=== PATIENT | male | born 1950 | race Caucasian/White ===

== ENCOUNTER → 2017-09-09 08:19 | Outpatient (CLI) | payer MEDICARE, SELFPAY ==
[2017-09-09 09:39] LABS: Alanine Aminotransferase 33 U/L (12-78); Albumin Level 3.5 gm/dL (3.4-5.0); Albumin/Globulin Ratio 0.9 (1.1-1.8); Alkaline Phosphatase 62 U/L (46-116); Anion Gap 11.8 mEq/L (5-15); Bilirubin,Total 0.6 mg/dL (0.2-1.0); Blood Urea Nitrogen 9 mg/dL (7-18); Carbon Dioxide 29 mmol/L (21.0-32.0); Chloride 107 mmol/L (98-107); Cholesterol 101 mg/dL (140-200); Creatinine,Serum 1.03 mg/dL (0.70-1.30); Estimated Glomerular Filt Rate 72 ml/min (>60); GFR (African American) 87 ML/MIN (>60); Glucose 147 mg/dL (74-106); HDL Cholesterol 34 mg/dL (27-67); LDL Cholesterol 50 mg/dL (0-130); Sodium 143 mmol/L (136-145); Total Protein,Serum 7.5 gm/dL (6.4-8.2); Triglycerides 86 mg/dL (30-200); VLDL Cholesterol 17 mg/dL (0-40)
[2017-09-09 09:41] LABS: Aspartate Amino Transferase 31 U/L (15-37); Potassium 4.8 mmoL/L (3.5-5.1)
== END ==
PROVIDERS: Visit Provider Physician Assistant
DX: E78.5 Hyperlipidemia, unspecified (principal); I25.10 Atherosclerotic heart disease of native coronary artery without angina pectoris
CPT/HCPCS: 36415; 80053; 80061

== ENCOUNTER → 2018-11-17 14:59 | Outpatient (CLI) | payer MEDICARE, SELFPAY ==
--- NOTE | 2018-11-17 15:04 | MR_ITS ---
PROCEDURE: MR CERVICAL SPINE WO CON CLINICAL INDICATION: CERVICAL RADICULOPATHY Cervical radiculopathy, right-sided neck and arm pain with headache and tingling in fingers in the right hand COMPARISON: No exams were available for comparison TECHNIQUE: Standard multiplanar multiecho sequences are performed without contrast. 3-D MIP and myelographic images are also rendered and reviewed FINDINGS: There is normal alignment. The cranial cervical junction has an unremarkable appearance. C2-C3: Unremarkable. C3-C4: There is fusion of the C3 and C4 vertebral body. C4-C5: Degenerate disc disease with mild concentric bulging disc with mild uncovertebral hypertrophy and mild bilateral lateral recess and foraminal narrowing. There is borderline narrowing of the canal. C5-C6: Degenerate disc disease with bulging disc and a small broad-based left paracentral disc osteophyte complex with left lateral recess and foraminal narrowing with canal stenosis at 10 mm there is very minimal contour deformity of the anterior aspect of the cord. C6-C7: Degenerate disc disease with bulging disc with canal stenosis at 10 mm. Minimal contour deformity of the anterior aspect of the cord C7-T1: Unremarkable IMPRESSION: 1. C4-C5: Degenerate disc disease with mild concentric bulging disc with mild uncovertebral hypertrophy and mild bilateral lateral recess and foraminal narrowing. There is borderline narrowing of the canal. 2. C5-C6: Degenerate disc disease with bulging disc and a small broad-based left paracentral disc osteophyte complex with left lateral recess and foraminal narrowing with canal stenosis at 10 mm there is very minimal contour deformity of the anterior aspect of the cord. 3. C6-C7: Degenerate disc disease with bulging disc with canal stenosis at 10 mm. Minimal contour deformity of the anterior aspect of the cord 4. No extruded herniated disc. There is fusion of the C3-C4 vertebral body. Dictated by: Mo Rossi MD 11/18/2018 06:24 Electronically signed by Mo Rossi MD in [place] 11/18/2018 06:24
== END ==
PROVIDERS: PCP Family Medicine; Referring Provider Family Medicine; Visit Provider Family Medicine
DX: M54.12 Radiculopathy, cervical region (principal)
CPT/HCPCS: 72141; 76376

== ENCOUNTER → 2019-05-02 14:52 | Outpatient (CLI) | payer MEDICARE, SELFPAY ==
--- NOTE | 2019-05-02 14:58 | XR_ITS ---
PROCEDURE: XR FOOT WT BEARING RT 3V CLINICAL INDICATION: bunions Pain COMPARISON: No exams were available for comparison FINDINGS: No fracture or dislocation. No lytic or blastic change. There is normal mineralization. Postsurgical changes with a bone plate along the mid and distal aspect of the 2nd metatarsal. Good alignment of the 1st MTP joint with hypertrophic changes. Suspect prior bunionectomy. There has been prior fusion of the 1st metatarsal tarsal joint with 2 crossing screws. Mild degenerative changes of the tarsal bones. Prominent enthesophyte at the Achilles insertion. Other findings:None. IMPRESSION: Postsurgical changes, no acute finding Dictated by: Mo Rossi MD 05/02/2019 17:30 Electronically signed by Mo Rossi MD in [place] 05/02/2019 17:30
--- NOTE | 2019-05-02 14:58 | XR_ITS ---
PROCEDURE: XR FOOT WT BEARING LT 3V CLINICAL INDICATION: bunion COMPARISON: No exams were available for comparison FINDINGS: No fracture or dislocation. No lytic or blastic change. There is normal mineralization. Mild to moderate hallux valgus with osteoarthritic change of the 1st MTP joint with bunion formation and vascular calcification. There is some calcification along the plantar surface of the foot fdc between the base of the 5th metatarsal in the small calcaneal spur which may be due to chronic plantar fasciitis. Well-circumscribed and these a fight is present at the Achilles insertion. Other findings:None. IMPRESSION: Onion hallux valgus with bunion formation with osteoarthritis and possible chronic plantar fasciitis Dictated by: Mo Rossi MD 05/02/2019 17:28 Electronically signed by Mo Rossi MD in [place] 05/02/2019 17:28
== END ==
PROVIDERS: PCP Family Medicine; Visit Provider Podiatrist
DX: M21.612 Bunion of left foot (principal)
CPT/HCPCS: 73630

== ENCOUNTER → 2019-05-11 12:26 | Outpatient (CLI) | payer MEDICARE, SELFPAY ==
--- NOTE | 2019-05-11 12:27 | US_ITS ---
APPROVED REPORT Exam Type: Lower Extremity Segmental Pressures Intravenous Therapy Nurse: Isadora Rice RVT Indications History of Smoking SKIN COLOR CHANGES ANTIONE, COLD FEET ANTIONE Risk Factors Hypertension CAD Hyperlipidemia Diabetes History of Smoking Pressures/Indices Right Indices Left Indices Brachial 146.00 mmHg Brachial 142.00 mmHg Low Thigh 144.00 mmHg 0.99 Low Thigh 255.00 mmHg 0.00 Calf 255.00 mmHg 0.00 Calf 255.00 mmHg 0.00 Ankle(PT) 172.00 mmHg 1.18 Ankle(PT) 255.00 mmHg 0.00 Ankle(DP) 137.00 mmHg 0.94 Ankle(DP) 255.00 mmHg 0.00 Digit 112.00 mmHg 0.77 Digit 109.00 mmHg 0.75 Findings RT SUKHJINDER:1.18 LT SUKHJINDER:NC RT TBI:0.77 LT TBI:0.75 NORMAL PULSES BILATERAL. NORMAL WAVEFORMS BILATERAL. Conclusion Medial calcinosis (rigid vessels) is suggested due to noncompressible thigh and calf vessels on the left Right side is normal. Electronically signed by : Mo Rossi MD 05/11/2019 16:51:05
== END ==
PROVIDERS: PCP Family Medicine; Visit Provider Nurse Practitioner
DX: I99.8 Other disorder of circulatory system (principal); R09.89 Other specified symptoms and signs involving the circulatory and respiratory systems; R68.89 Other general symptoms and signs
CPT/HCPCS: 93923

== ENCOUNTER 2019-08-01 08:22 | Day surgery (SDC) | payer MEDICARE, SELFPAY ==
[2019-08-01] VITALS (10 sets, daily range): BP systolic 114–171; BP diastolic 59–119; PULSE 52–62; RESP 16–18; TEMP 36.8; O2SAT 92–97; BMI 40.3
--- NOTE | 2019-08-01 | IR_ITS ---
APPROVED REPORT Patient Location: Outpatient Veneer Taper: TEE Ron RT (R) PROCEDURES Catheter placement in the right common iliac artery Right common iliac artery antegrade angiogram with unilateral runoff to the right foot Catheter placement in the left common iliac artery Left common iliac artery antegrade angiogram with unilateral runoff to the left foot Catheter placement to the distal abdominal aorta Distal abdominal aortography INDICATION Abnormal SUKHJINDER, Preoperative evaluation for lower extremity surgery Informed consent was obtained prior to the procedure. COMPLICATIONS None Estimated Blood Loss: Less than 10 ml TECHNIQUE 1% lidocaine used to anesthetize the right anterior aspect of the right wrist. The right radial artery was accessed via the central technique and an arterial cocktail using 5000U heparin, 2.5 mg verapamil, 1mg lidocaine and 800mcg nitroglycerin into the right radial sheath intra-arterially. A PV multi curve catheter was then placed into the left common iliac artery via the right radial sheath and iliofemoral angiography was performed with unilateral runoff to the foot. Excellent angiographic results were obtained. At the end of the procedure the apparatus was removed the sheath was removed good hemostasis was achieved using TR banding patient was transferred to the postop holding area in stable condition. ANGIOGRAPHIC RESULTS The distal abdominal aorta is normal with normal bilateral common iliac arteries normal internal and external iliac arteries. The bilateral common femoral arteries are normal The bilateral profunda femoris arteries are normal The right superficial femoral artery has proximal calcified stenoses followed by a mid vessel focal greater than 90% stenosis with normal flow distal to the vessel. The right popliteal artery is mildly calcified. Distally the anterior tibialis artery and posterior tibialis artery are patent however the posterior tibialis artery has diffuse proximal 80% stenoses while the anterior tibialis artery has mild disease. The peroneal artery is also patent but does not completely supply the right foot The left superficial femoral artery has mild proximal and mid vessel atheromatous plaque nothing greater than 30%. The left popliteal artery has diffuse 30% stenoses. The left anterior tibialis artery has proximal and mid vessel 90% stenoses and is then occluded throughout most of its mid segment and then reconstitutes as it approaches the foot via collaterals from the patent peroneal artery. The left posterior tibialis artery has an ostial 50% stenosis mid vessel 90% stenoses and distal 90% stenoses as the artery enters the foot IMPRESSION Peripheral artery disease as described above with most of the disease confined to the infrageniculate level although the right superficial femoral artery does have a focal stenosis PLAN 1. At this point I recommend medical management. No percutaneous or surgical intervention will improve patient's risk factors for complications for the pending bunion surgery. 2. Risk factor modification with an LDL less than 55 3. Physical therapy 4. Avoidance of tobacco products 5. Should patient develop recalcitrant claudication the right superficial femoral artery has a focal stenosis which is easily amenable to intervention. Electronically signed by : Pablo Gutierrez, 08/01/2019 12:49:07
[2019-08-01 09:11] LABS: Basophils # 0.1 K/mm3 (0-0.2); Basophils % 1.2 % (0.1-2.0); Eosinophils # 0.1 K/mm3 (0.0-0.4); Hematocrit 48.5 % (42.0-52.0); Hemoglobin 16.1 g/dL (14.1-18.0); Lymphocytes # 2.2 K/mm3 (0.7-4.5); Lymphocytes % 34.1 % (10-50); Mean Corpuscular HGB Conc 33.2 g/dL (31.8-35.4); Mean Corpuscular Hemoglobin 29.9 pg (27.0-31.2); Mean Corpuscular Volume 90.1 fl (80-94); Mean Platelet Volume 8.2 fl (7.4-10.4); Monocytes # 0.4 K/mm3 (0.1-1.0); Monocytes % 6.7 % (1.7-9.3); Neutrophils # 3.5 K/mm3 (1.8-7.8); Neutrophils % 55.9 % (37.0-80.0); Platelet Count 258 K/mm3 (142-424); Red Blood Count 5.39 M/mm3 (4.60-6.20); Red Cell Distribution Width 14.1 % (11.5-17.5); White Blood Count 6.3 K/mm3 (4.8-10.8)
[2019-08-01 09:13] LABS: Chloride 101 mmol/L (98-107); Potassium 4.1 mmoL/L (3.5-5.1); Sodium 135 mmol/L (136-145)
[2019-08-01 09:16] LABS: Anion Gap 7.1 mEq/L (5-15); Blood Urea Nitrogen 12 mg/dl (9-20); Carbon Dioxide 31 mmol/L (22.0-30.0); Creatinine Clearance Estimated 117 mL/min (50-200); Estimated Glomerular Filt Rate 74 ml/min (>60); GFR (African American) 89 ML/MIN (>60)
[2019-08-01 09:17] LABS: Calcium 8.9 mg/dl (8.4-10.2); Glucose 149 mg/dl (74-100)
== END 2019-08-01 14:59 | disposition home or self-care (01) ==
LOC: CATHLAB 08:25
PROVIDERS: PCP Family Medicine; Visit Provider Internal Medicine
DX: I70.293 Other atherosclerosis of native arteries of extremities, bilateral legs (principal); I25.10 Atherosclerotic heart disease of native coronary artery without angina pectoris; I77.1 Stricture of artery; Z87.891 Personal history of nicotine dependence; I10 Essential (primary) hypertension; E78.5 Hyperlipidemia, unspecified; Z79.899 Other long term (current) drug therapy; E11.51 Type 2 diabetes mellitus with diabetic peripheral angiopathy without gangrene
CPT/HCPCS: 36247; 75716; 80048; 85025; 99152; 99153; C1725; C1769; J1644; Q9966

== ENCOUNTER 2020-01-28 10:55 | Emergency (ER) | payer MEDICARE, SELFPAY ==
[2020-01-28 11:36] VITALS: BP 122/71; PULSE 64; RESP 20; TEMP 36.6; O2SAT 98; BMI 41.5
--- NOTE | 2020-01-28 11:37 | HMH.EDUTC ---
[facility] Disposition Clinical Impression: Exposure to COVID-19 virus Disposition: Home, Self-Care Condition on Discharge: Good Instructions: Preventing the Spread of Coronavirus Discharge Instructions Additional Instructions: You have been tested for COVID19. Those test results should be available in 24-48 hours. Please isolate yourself as if you are positive until test results received. If you are positive, you must isolate for 10 days and until you are symptom free. Due to exposure, you must quarantine for 14 days from the last day that you had contact with your son. Referrals: Macario Bell MD [Primary Care Provider] - Time of Disposition: 11:42 Medical Decision Making - Buck Inquiry Pt receiving controlled substance: No Orders (Tests/Meds): ORDERS Category Date Time Status Covid-19 Nasal PCR Sendout [facility] 01/28/20 11:30 Received [facility] HPI - General Stated complaint: Covid exposure Time Seen by Provider: 01/28/20 11:37 - History of Present Illness Provider Complaint: Son tested positive for COVID19 2 days ago. Denies symptoms at this time. Relieving factors: none Exacerbating factors: none Associated symptoms: denies other symptoms Treatments prior to arrival: none - Related Data Home Medications Medication Instructions Recorded Confirmed aspirin 81 mg tablet,delayed 81 mg PO DAILY 05/18/19 05/18/19 release carvedilol 12.5 mg tablet 12.5 mg PO BID tab 05/18/19 05/18/19 glipizide 5 mg tablet, extended 5 mg PO DAILY tab 05/18/19 05/18/19 release 24 hr isosorbide mononitrate 30 mg 30 mg PO DAILY tab 05/18/19 05/18/19 tablet,extended release 24 hr lisinopril 40 mg tablet 40 mg PO DAILY tab 05/18/19 05/18/19 omeprazole 20 mg capsule,delayed 20 mg PO DAILY cap 05/18/19 05/18/19 release Previous Rx's Medication Instructions Recorded atorvastatin 40 mg tablet 40 mg PO DAILY #90 tab 05/18/19 Allergies Allergy/AdvReac Type Severity Reaction Status Date / Time No Known Allergies Allergy Verified 05/18/19 09:59 [facility] History - Hepatitis A Screen Attestation statement:: This patient has been screened for Hepatitis A risk factors. I have reviewed the patient's past medical history: Yes Medical History: Reports:: Coronary Artery Disease, Diabetes Mellitus Type 2, Gastroesophageal Reflux Disease(GERD), Hypertension, Pulmonary Embolism Other Surgeries: Yes: Cardiac Catheterization, Coronary Stent, Other Amputation: No Fractures: No - Social History Smoking Status: Former smoker Alcohol Intake: never Alcohol Intake Frequency:: holidays/special occasions only Substance Use Type: denies use Occupational Status: retired Housing: house Household Members: spouse Family Hx:: Coronary Artery Disease, Cancer ROS Obtained: Yes All systems reviewed & no additional complaints Physical Exam - General General appearance: alert, in no apparent distress - Head Head exam: normocephalic - Eye Eye exam: Present: PERRL - ENT ENT exam: Present: normal oropharynx - Chest Chest inspection: Present: normal inspection, symmetric chest wall rise - Respiratory Respiratory exam: Present: normal lung sounds bilaterally - Cardiovascular Cardiovascular exam: Present: regular rate, normal rhythm - Extremities Exam Extremities exam: Present: normal inspection, full ROM - Neurological Exam Neurological exam: Present: alert, oriented X3 - Psychiatric Psychiatric exam: Present: normal affect, normal mood - Skin Skin exam: Present: warm, dry, intact
[2020-01-28 12:08] VITALS: BP 122/71; PULSE 64; RESP 20; TEMP 36.6; O2SAT 98
[2020-01-29 10:13] LABS: Covid-19 Nasal PCR Sendout UK NOT DETECTED
== END 2020-01-28 12:09 | disposition home or self-care (01) ==
PROVIDERS: Emergency Provider Physician Assistant; PCP Family Medicine
DX: Z20.828 Contact with and (suspected) exposure to other viral communicable diseases (principal); I10 Essential (primary) hypertension; I25.10 Atherosclerotic heart disease of native coronary artery without angina pectoris; E11.9 Type 2 diabetes mellitus without complications; K21.9 Gastro-esophageal reflux disease without esophagitis; Z87.891 Personal history of nicotine dependence
CPT/HCPCS: G0463; 99201; U0003

== ENCOUNTER → 2020-10-16 13:07 | Outpatient (CLI) | payer MEDICARE, SELFPAY ==
--- NOTE | 2020-10-16 13:11 | CA_ITS ---
APPROVED REPORT EXAM: Comprehensive 2D, Doppler, and color-flow Echocardiogram Mobile Solutions Architect: JANIS Enrique, RVS Ht: 5 ft 8 in Wt: 265lbs BSA: 2.30 BP: 145/73 mmHg Indications: Cad Hx- coronary stent, HTN, HLD, Obesity, DM Echo Enhancing Agent Comments: Technically difficult due to large body habitus and lung impedence. 2D Dimensions IVSd 1.50 cm LVEF (Visual) 64.00 % PWd 1.34 cm LA Volume 59.30 mL LVDd 4.23 cm LA Volume Index 25.80 mL/m2 (M/F) 16-34 LVDs 2.77 cm Left Atrium 3.52 cm LVOT 2.00 cm (M/F) 1.5-2.5 M-Mode Dimensions RVDd 3.62 cm (0.9-2.6) LA Diam 4.12 cm (1.9-4.0) LVDd 4.75 cm (3.5-5.7) Ao Diam 3.37 cm (2.0-3.7) LVDs 2.66 cm (3.5-5.7) IVSd 1.57 cm (0.6-1.1) PWd 1.29 cm (0.6-1.1) EF (Teich) 75.20% EPSs 0.52 cm FS 44.00% EDV (Teich) 104.90 mL TAPSE 1.94 (<1.7) ESV (Teich) 26.00 mL LV Diastology E Decel Time 333.00 (160-240 msec) E/A Ratio 0.89 MED E' 5.40 (< 7 cm/sec) MED A' 8.60 cm/s E'/MED E' Ratio 20.85 (>14) LAT E' 5.20 (<10 cm/sec) LAT A' 9.70 cm/s E/LAT E' Ratio 21.65 (>14) Aortic Valve LVOT Max 135.00 (70-110 cm/s) LVOT VTI 26.85 cm AoV Peak Gerald. 169.00 (50-130 cm/s) AO Peak GR. 11.40 mmHg AO Mean GR. 5.60 (<5 mmHg) AO VTI 30.22 (18-25 cm) ROLO (VTI) 2.79 (2.5-4.5 cm2) Mitral Valve MV A Velocity 126.00 (40-130 cm/s) E/A Ratio 0.89 MV Decel. Time 333.00 (160-240 ms) MV PHT 110.00 ms Left Ventricle Left atrium is mildly enlarged, left ventricle is normal size, mild concentric left ventricular hypertrophy, visually estimated ejection fraction 55% with no regional wall motion abnormality, grade 1 diastolic dysfunction seen with tissue Doppler evidence of raise left atrial pressure. Right Ventricle Right atrium and right ventricle mildly enlarged with normal contractility. Aortic Valve Aortic valve is minimally thickened and calcified, there is no aortic stenosis or aortic insufficiency. Mitral Valve Mitral valve has mitral calcification, leaflets are minimally thickened, there is no mitral stenosis, there is mild mitral regurgitation. Tricuspid Valve Tricuspid grossly normal, there is mild tricuspid regurgitation, tricuspid regurgitation jet velocity is inadequate for calculation of the right ventricular systolic pressure. Pulmonic Valve Pulmonic valve is poorly visualized. Great Vessels Aortic root is normal size. Inferior vena cava is not well visualized. Pericardium No significant pericardial effusion noted. Conclusion 1. Mild biatrial enlargement, normal left ventricular size, mild concentric left ventricular hypertrophy, visually estimated ejection fraction 55% with no regional wall motion abnormality, grade 1 diastolic dysfunction seen with tissue Doppler evidence of raise left atrial pressure. 2. Mildly enlarged right ventricle with normal contractility. 3. Mild mitral and tricuspid regurgitation. 4. No significant pericardial effusion noted. Electronically signed by : Bennie Gonsalves MD 10/17/2020 14:39:49
== END ==
PROVIDERS: PCP Family Medicine; Visit Provider Nurse Practitioner Acute Care
DX: I25.10 Atherosclerotic heart disease of native coronary artery without angina pectoris (principal); I10 Essential (primary) hypertension
CPT/HCPCS: 93306

== ENCOUNTER → 2021-01-29 07:38 | Outpatient (CLI) | payer MEDICARE, SELFPAY ==
--- NOTE | 2021-01-29 07:51 | MR_ITS ---
PROCEDURE: MR HEAD/BRAIN WO CON CLINICAL INDICATION: encephalopathy, memory loss COMPARISON: No exams were available for comparison TECHNIQUE: Routine multiplanar multi echo sequences are performed without gadolinium enhancement. FINDINGS: No midline shift, mass effect, intracranial hemorrhage, or hydrocephalus is evident. No evidence of restricted diffusion/acute infarction. Moderate degree periventricular and subcortical T2 white matter hyperintensities noted. These do not demonstrate restricted diffusion. The cerebellopontine angles, cerebellum, and brainstem have an unremarkable appearance. The pituitary, optic chiasm, corpus callosum, and craniocervical junction are unremarkable. There does appear to be fusion of C3-C4 vertebral body. Small amount fluid signal noted in the left mastoid sinus. No paranasal sinus air-fluid level. Small areas of increased T2 signal noted within the parotid region on both sides suggesting small nodes measuring up to 1.6 x 1 cm on the left and 1.3 x 0.7 cm on the right. There is decreased T1 and increased T2 signal within the globus pallidus on both sides with slight increase in FLAIR signal suggesting old small lacunar infarctions with cystic encephalomalacia. IMPRESSION: 1. No acute intracranial findings. 2. Atrophy with moderate T2 white matter hyperintensity consistent with ischemic gliotic changes from microvascular disease. 3. 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 Differential diagnosis for bilateral basal ganglia infarcts include carbon monoxide poisoning, methylmalonic acidemia, disulfiram toxicity, recently reported Covid19 hypoxemia, and cocaine use disorder. 4. Small amount fluid signal in the left mastoid sinus. Dictated by: Mo Rossi MD 01/30/2021 07:35 Mo Rossi MD in [place] 01/30/2021 07:35
[2021-01-29 08:05] LABS: Basophils # 0.1 K/mm3 (0-0.2); Basophils % 1.3 % (0.1-2.0); Eosinophils # 0.3 K/mm3 (0.0-0.4); Eosinophils % 3.6 % (0.1-12.0); Hematocrit 40.4 % (42.0-52.0); Hemoglobin 13.2 g/dL (14.1-18.0); Lymphocytes # 2.4 K/mm3 (0.7-4.5); Lymphocytes % 31.9 % (10-50); Mean Corpuscular HGB Conc 32.7 g/dL (31.8-35.4); Mean Corpuscular Hemoglobin 28.9 pg (27.0-31.2); Mean Corpuscular Volume 88.5 fl (80-94); Mean Platelet Volume 8.3 fl (7.4-10.4); Monocytes # 0.4 K/mm3 (0.1-1.0); Monocytes % 5.8 % (1.7-9.3); Neutrophils # 4.3 K/mm3 (1.8-7.8); Neutrophils % 57.5 % (37.0-80.0); Platelet Count 344 K/mm3 (142-424); Red Blood Count 4.57 M/mm3 (4.60-6.20); Red Cell Distribution Width 14.1 % (11.5-17.5); White Blood Count 7.4 K/mm3 (4.8-10.8)
[2021-01-29 08:13] LABS: Chloride 104 mmol/L (98-107); Potassium 3.9 mmoL/L (3.5-5.1); Sodium 141 mmol/L (136-145)
[2021-01-29 08:15] LABS: Alanine Aminotransferase 14 U/L (12-78); Aspartate Amino Transferase 24 U/L (17-59); Blood Urea Nitrogen 7 mg/dl (9-20); Estimated Glomerular Filt Rate 83 ml/min (>60); GFR (African American) 100 ML/MIN (>60)
[2021-01-29 08:16] LABS: Albumin/Globulin Ratio 1.3 (1.1-1.8); Alkaline Phosphatase 93 U/L (38-126); Anion Gap 12.9 mEq/L (5-15); Bilirubin,Total 0.3 mg/dl (0.2-1.3); Calcium 8.9 mg/dl (8.4-10.2); Carbon Dioxide 28 mmol/L (22.0-30.0); Chol/HDL Ratio 4.2 (1-3.5); Cholesterol 130 mg/dl (140-200); Globulin 3.1 g/dL (1.3-3.2); Glucose 128 mg/dl (74-100); HDL Cholesterol 31 mg/dl (40-60); Total Protein,Serum 7.1 g/dl (6.3-8.2); Triglycerides 102 mg/dl (30-150); VLDL Cholesterol 20 mg/dL (0-40)
[2021-01-29 08:27] LABS: Direct LDL Cholesterol 75.42 mg/dL (100-129)
[2021-01-29 10:34] LABS: Vitamin B12 444 pg/mL (239-931)
[2021-01-29 11:33] LABS: Folate 6.09 ng/mL
[2021-01-29 11:45] LABS: Thyroid Stimulating Hormone 1.64 uIU/mL (0.465-4.68)
== END ==
PROVIDERS: PCP Family Medicine; Visit Provider Nurse Practitioner Family
DX: G93.40 Encephalopathy, unspecified (principal); R41.3 Other amnesia; E66.9 Obesity, unspecified; Z68.38 Body mass index [BMI] 38.0-38.9, adult
CPT/HCPCS: 36415; 70551; 80053; 80061; 82607; 82746; 84443; 85025

== ENCOUNTER → 2021-02-05 12:26 | Outpatient (CLI) | payer MEDICARE, SELFPAY ==
[2021-02-05 14:32] LABS: Ferritin 27.5 ng/ml (17.9-464)
[2021-02-05 23:18] LABS: Iron 46 ug/dL (49-181)
[2021-02-05 23:27] LABS: Total Iron Binding Capacity 327 ug/dL (261-462)
== END ==
PROVIDERS: Visit Provider Nurse Practitioner Family
DX: D64.9 Anemia, unspecified (principal)
CPT/HCPCS: 36415; 82728; 83540; 83550

== ENCOUNTER → 2021-02-05 21:07 | Outpatient (CLI) | payer MEDICARE, SELFPAY | PROVIDERS: PCP Family Medicine; Visit Provider Nurse Practitioner Family | DX: G47.30 Sleep apnea, unspecified (principal); D50.9 Iron deficiency anemia, unspecified | CPT/HCPCS: 36415; 82728; 83540; 83550; 95810 ==

== ENCOUNTER → 2021-03-12 09:15 | Outpatient (CLI) | payer MEDICARE, SELFPAY | PROVIDERS: PCP Family Medicine; Visit Provider Surgery | DX: Z01.812 Encounter for preprocedural laboratory examination (principal); Z11.52 Encounter for screening for COVID-19; Z12.11 Encounter for screening for malignant neoplasm of colon | CPT/HCPCS: C9803; U0003; U0005 ==

== ENCOUNTER 2021-03-14 08:11 | Day surgery (SDC) | payer MEDICARE, SELFPAY ==
[2021-03-10 14:05] VITALS: BMI 37.5
[2021-03-14] VITALS (7 sets, daily range): BP systolic 131–167; BP diastolic 70–96; PULSE 59–70; RESP 16–18; TEMP 36.6–36.7; O2SAT 91–98
--- NOTE | 2021-03-14 08:56 | HMH.ANESCL ---
[facility] Anesthesia Checklist - Structural Data Admitted From: Home Planned Operative Procedure/s: colonoscopy Consent for Planned Operative Procedure(s) Verified: Yes - Airway Assessment C-Spine Mobility Assessed: Yes TMJ Mobility Assessed: Yes Dentition: Poor Dentition - Neurological Assessment Level of Consciousness: Awake, Alert, Appropriate - Anesthesia Plan Anesthesia Risk discussed: Yes Anesthesia Plan: Verified ASA Class: III Anesthesia Type: MAC [facility] History I have reviewed the patient's past medical history: Yes Medical History: Reports:: Coronary Artery Disease, Diabetes Mellitus Type 2, Gastroesophageal Reflux Disease(GERD), Hyperlipidemia, Hypertension, Pulmonary Embolism Denies:: Cancer, Diabetes Mellitus Type 1, Internal Pacemaker, MRSA, Seizures *Have you ever received a pneumonia vaccine?: Yes *Have you received a flu vaccine this season?: Yes Other Medical History: Reports: Arthritis, Cataracts Anesthesia experience/problems:: none Laterality Cases: Right: Other, Bilateral: Cataract Other Surgeries: Yes: Cardiac Catheterization, Coronary Stent, Other. No: Pacemaker Amputation: No Fractures: Yes (right foot) - *Social History Last grade of school completed: 11th or 12th Smoking Status: Former smoker Alcohol Intake: never Alcohol Intake Frequency:: holidays/special occasions only Substance Use Type: denies use *Occupational Status:: retired Housing: house Household Members: spouse *Travel in the last 8 weeks: None Family Hx:: No significant family history
--- NOTE | 2021-03-14 09:23 | HMH.SCOPE ---
- Procedure: Date: 03/14/21 Patient Date of :: 1950 Procedure Performed:: Total colonoscopy with polypectomy by snare Indications:: Patient is a 71-year-old male who presents for colonoscopy due to history of polyps. He had initial screening colonoscopy on 11/30/[address] Guadalupe and had 7 polyps removed. There was noted to be an ascending colon lipoma. It was recommended he undergo follow-up colonoscopy in 2 or 3 years. Performing Provider:: Robson Meadows MD Referring Provider:: Macario Bell MD Sedation:: MAC sedation Procedure:: Patient was taken to endoscopy procedure room. He was positioned in lateral decubitus position. Adequate intravenous sedation was achieved with anesthesia titration of propofol. Variable stiffness Olympus colonoscope was inserted via the anus. It was advanced to the cecum. He had somewhat of a high riding cecum. Ileocecal valve and appendiceal orifice were clearly identified. Colonoscope was slowly withdrawn to the colon with careful surveillance. Irrigation and suctioning was performed as needed. There was a small to moderate submucosal lipoma in the ascending colon. In the distal transverse colon there was a small adenomatous appearing polyp measuring about 4 mm removed with cold cutting snare. In the descending colon there were a couple of small polyps about 3 mm removed with cold snare. The rectosigmoid region there is a tiny diminutive polyp about 2 or 3 mm removed with cold snare. He did have significant left-sided diverticulosis. Retroflexion within the rectum revealed no evidence of any pathologic internal hemorrhoids. Colonoscope was withdrawn. Findings:: Ascending colon submucosal lipoma Some degree of pandiverticulosis with significant left colon diverticulosis Small 2 to 4 mm polyps x4 Recommendations:: Likely repeat colonoscopy 3 years Complications:: None immediate Estimated blood obtained (mL): 2
[2021-11-27 10:56] LABS: POC Glucose,Bedside 99 (70-110)
== END 2021-03-14 10:00 | disposition home or self-care (01) ==
LOC: OUTP 08:12
PROVIDERS: PCP Family Medicine; Visit Provider Surgery
PROC: 0DJD8ZZ Inspection of Lower Intestinal Tract, Via Natural or Artificial Opening Endoscopic (ICD-10-PCS; principal; 2021-03-14 09:30)
DX: Z12.11 Encounter for screening for malignant neoplasm of colon (principal); D12.5 Benign neoplasm of sigmoid colon; K57.32 Diverticulitis of large intestine without perforation or abscess without bleeding; D12.4 Benign neoplasm of descending colon; D12.3 Benign neoplasm of transverse colon; Z86.010 Personal history of colon polyps; I25.10 Atherosclerotic heart disease of native coronary artery without angina pectoris; K21.9 Gastro-esophageal reflux disease without esophagitis; E78.5 Hyperlipidemia, unspecified; I10 Essential (primary) hypertension; Z86.711 Personal history of pulmonary embolism; Z79.899 Other long term (current) drug therapy; Z79.82 Long term (current) use of aspirin
CPT/HCPCS: 45385; 82962; 88305

== ENCOUNTER → 2021-04-22 21:20 | Outpatient (CLI) | payer MEDICARE, SELFPAY | PROVIDERS: PCP Family Medicine; Visit Provider Nurse Practitioner Family | DX: G47.33 Obstructive sleep apnea (adult) (pediatric) (principal) | CPT/HCPCS: 95811 ==

== ENCOUNTER 2023-11-16 06:46 | Outpatient (CLI) | payer MEDICARE, SELFPAY ==
--- NOTE | 2023-11-16 | CA_ITS ---
APPROVED REPORT Exam: Pharmacologic Technologist: Ila Lopez, Ht: 5 ft 8 in Wt: 234 lbs BSA: 2.18 m2 HR: 53 bpm BP: 110/55 mmHg Rhythm: Sinus bradycardia Medical History Medications: Amlodipine,,,,, Lisinopril,,,,, Aspirin,,,,, Atorvastatin,,,,, Carvedilol,,,,, TAMSULOSIN,,,,, CHlorthalidone,,,,, DONEPEZIL,,,,, Baclofen,,,,, MeMANTINE,,,,, Glipizide er,,,,, Escitalopram Oxolate,,,,, Stress Test Details Test: LEXISCAN Reason for pharmacologic stress test: physical limitation. HR Resting HR: 52 bpm Max Heart Rate (APMHR): 146 bpm Max HR Achieved: 68 bpm Target HR (85% APMHR): 124 bpm % of APMHR: 47 Recovery HR: 64 bpm BP Resting BP: 110.0/55.0 mmHg Max BP: 110.0/55.0 mmHg Recovery BP: 90.0/64.0 mmHg ECG Resting ECG: Sinus bradycardia Stress ECG: No significant ST changes Arrhythmia: PACs, PVCs Clinical Exercise duration: 04:01 min Highest Stage Achieved: Stress ECG Conclusion Symptoms: Nausea. Arrhythmias/Ectopy: PVC, PAC. ST-T Changes: No significant ST changes Conclusion: EKG unremarkable due to Lexiscan infusion. Myoview images reported separately. Test Summary REST . . . . . . . Sitting REST 06:19 . . 52 . 110/ 55 . . Stage 1 . . . . . . . Myoview Injected Stage 1 01:00 . . 56 . . . . Stage 2 01:00 . . 68 . 98/ 45 . . Stage 3 01:00 . . 60 . 103/ 43 . . Stage 4 01:00 . . 59 . 110/ 43 . . Stage 4 01:01 . . 59 . 110/ 43 . Stop exercise at 04:01 RECOVERY 01:00 . . 61 . 88/ 38 . . RECOVERY 02:00 . . 60 . 88/ 38 . . RECOVERY 02:22 . . 65 . 90/ 46 . . Electronically signed by : Meredith Brothers MD 11/17/2023 00:28:03
--- NOTE | 2023-11-16 06:47 | NM_ITS ---
APPROVED REPORT Exam: Nuclear Stress Test Indication: SOB, CAD, HTN, DM, High cholesterol, Family history Patient Location: Outpatient Stress Tech: Ila HAMILTON Tech:Mary Carmen Trammell, ARRT, RT (R)(N) Ht: 5 ft 6 in Wt: 233 lbs HR: 52 bpm BP: 110/55 mmHg BSA: 2.13 m2 TID: 1.23 BMI: 37.6 History: SOB, CAD, HTN, DM, High cholesterol, Family history Procedure: Patient received 0.4 mg of intravenous Lexiscan, resting heart rate 52 bpm, resting blood pressure 110/55 mmHg, with Lexiscan maximum heart rate achieved was 68 bpm which is % of the maximum predicted heart rate and blood pressure was 110/55 mmHg. With Lexiscan, patient denied any complaint of chest pain. Cardiac Stress and Resting SPECT Images: Cardiac Stress and Resting SPECT images were obtained using technetium 99m Myoview 32.1 mCi stress and 10.25 mCi at rest. Resting and stress imaging in supine positions demonstrate a small sized, moderate, fixed perfusion defect in the basal inferior LV wall. This is no longer visualized with prone stress imaging. Findings are suggestive of diaphragmatic attenuation. There is increase in transit ischemic dilatation ratio (TID 1.23), suggestive of possible multivessel disease or balanced ischemia. Gated imaging demonstrates normal global and regional LV systolic function. LVEF is calculated at 61%. Conclusion: Diaphragmatic attenuation is present. No evidence of focal fixed or reversible perfusion defects. There is increase in transit ischemic dilatation ratio (TID 1.23), suggestive of possible multivessel disease or balanced ischemia. Gated imaging demonstrates normal global and regional LV systolic function. LVEF is calculated at 61%. Electronically signed by : Meredith Brothers MD 11/17/2023 00:29:46
[2023-11-16] MEDS: ISOTOPE MYOVIEW (PER STUDY) 1 DOSE IV (08:45)
[2023-11-16] MEDS: SODIUM CHLORIDE 0.9% 10ML SYR (RAD ONLY) 10 ML IV ×2 (08:45)
[2023-11-16] MEDS: REGADENOSON 0.4MG/5ML SYRINGE 0.4 MG IV (08:45)
== END 2023-11-16 23:59 | disposition home or self-care (01) ==
LOC: RAD 06:47
PROVIDERS: PCP Family Medicine; Visit Provider Nurse Practitioner
DX: I25.10 Atherosclerotic heart disease of native coronary artery without angina pectoris (principal); I51.89 Other ill-defined heart diseases; R06.00 Dyspnea, unspecified
CPT/HCPCS: 78452; 93017; 93018; A9502; J2785

== ENCOUNTER 2023-11-18 08:48 | Outpatient (CLI) | payer MEDICARE, SELFPAY ==
--- NOTE | 2023-11-18 08:55 | CA_ITS ---
APPROVED REPORT EXAM: Comprehensive 2D, Doppler, and color-flow Echocardiogram Crane Manager: Ara Lynn CRT Ht: 5 ft 8 in Wt: 234lbs BSA: 2.18 BP: 101/45 mmHg Indications: Shortness of Breath, Diabetes, CAD, Hyperlipidemia, Hypertension/HDD, stent, dementia 2D Dimensions LA Volume 47.50 mL LA Volume Index 21.20 mL/m2 (M/F) 16-34 M-Mode Dimensions RVDd 2.92 cm (0.9-2.6) LA Diam 3.85 cm (1.9-4.0) LVDd 4.63 cm (3.5-5.7) LVDs 2.39 cm (3.5-5.7) IVSd 2.05 cm (0.6-1.1) PWd 1.06 cm (0.6-1.1) EF (Teich) 79.80% FS 48.40% EDV (Teich) 98.80 mL TAPSE 2.24 (<1.7) ESV (Teich) 20.00 mL LV Diastology E Decel Time 273 (160-240 msec) E/A Ratio 0.62 MED A' 10.90 cm/s LAT A' 12.60 cm/s Aortic Valve AO Peak GR. 8.90 mmHg Mitral Valve MV A Velocity 109.0 (40-130 cm/s) E/A Ratio 0.62 Pulmonary Valve PV Peak Velocity 105.0 (50-150 cm/s) Tricuspid Valve TR P. Velocity 289.00 cm/s RAP Estimate 10.00 mmHg RVSP 43.30 mmHg Left Ventricle The left ventricle is normal size. The left ventricular systolic function is normal. The left ventricular ejection fraction is within the normal range. There is increased LV wall thickness. There is normal LV segmental wall motion. Transmitral Doppler flow pattern suggests impaired LV relaxation. LVEF is 55%. Right Ventricle Right ventricle is mildly dilated. The right ventricular systolic function is normal. Atria Left atrium is mildly dilated. Right atrium is mildly dilated. There is no Doppler evidence of interatrial shunt. The aortic valve is mildly thickened. Aortic Valve There is no aortic valvular stenosis. No aortic regurgitation is present. Mitral Valve The mitral valve is mildly thickened. No evidence of mitral valve stenosis. Trace mitral regurgitation. Tricuspid Valve The tricuspid valve leaflets are thin and pliable. Trace tricuspid regurgitation. There is insufficient TR jet to estimate RVSP. Pulmonic Valve The pulmonary valve is grossly normal in structure. Trace pulmonic regurgitation. Great Vessels The aortic root is normal in size. The ascending aorta is normal in size. IVC is normal in size and collapses >50% with inspiration. Pericardium There is no pericardial effusion. Other Information Study Quality: Fair Conclusion Normal biventricular systolic function. Mild RV dilation. Mild biatrial dilation. No significant valvular stenosis or regurgitation. Electronically signed by : Meredith Brothers MD 11/21/2023 01:20:04
== END 2023-11-18 23:59 | disposition home or self-care (01) ==
LOC: RT 08:51
PROVIDERS: PCP Family Medicine; Visit Provider Nurse Practitioner
DX: I51.89 Other ill-defined heart diseases (principal); R06.00 Dyspnea, unspecified
CPT/HCPCS: 93306

== ENCOUNTER 2023-12-16 10:17 | Day surgery (SDC) | payer MEDICARE, SELFPAY ==
[2023-12-16] VITALS (9 sets, daily range): BP systolic 96–139; BP diastolic 30–64; PULSE 50–63; RESP 16–18; O2SAT 93–95; BMI 36.1
--- NOTE | 2023-12-16 07:06 | IR_ITS ---
APPROVED REPORT Patient Location: Outpatient PROCEDURES Left heart catheterization Left ventriculogram Selective coronary angiogram Drug-eluting stent deployment to the proximal mid dominant right coronary Drug-eluting stent deployment to the proximal LAD INDICATION High risk abnormal Myoview, Coronary artery disease Informed consent was obtained prior to the procedure. COMPLICATIONS none Estimated Blood Loss: less than 10ml TECHNIQUE One percent lidocaine used to anesthetize the right anterior aspect of the wrist. The right radial artery was accessed via the Seldinger technique. A 6 Faroese sheath was placed in the right radial artery. 2.5 mg of Verapamil, 800 mcg of nitroglycerin, 1mg Lidocaine and 5000 U Heparin were given through the arterial sheath. The 6 Faroese JL 3 guide catheter r was also used to perform left heart catheterization, left ventriculogram and selective coronary angiogram. At the end of the diagnostic angiogram therapeutic Was administered giving a therapeutic ACT and the guide catheter was placed in the right coronary followed by Choice PT extra-support wire placed distally. A 4 mm x 38 mm Tre frontier stent was placed in the proximal to the right coronary artery and deployed at 16 [place]. A 4 mm x 12 mm noncompliant balloon was then placed proximally and deployed at 24 [place] to post dilate. ROSEMARY-3 flow was present before and after procedure. After achieving excellent angiograph results the guide catheter was placed in the left main artery where the Choice PT export wire was placed into the LAD. A 3.5 x 12 mm Tre frontier stent was deployed at 16 [place] reducing the stenosis. An additional 3.5 x 8 mm [place] frontier stent was placed distal to the for stent yet still overlapping and deployed at 16 [place]. The balloon was brought back and deployed at 20 [place] to further mesh the stents and further post dilate. ROSEMARY-3 flow was present before and after the procedure. At the end the procedure the apparatus was removed the sheath was removed and hemostasis was achieved using TR banding patient was transferred to the postop putting in stable condition ANGIOGRAPHIC RESULTS The left main artery Has a long concentric 20 to 30% stenosis throughout its entire course The left anterior descending artery Has a proximal concentric 70% calcified stenosis with mid vessel 30% stenoses with distal 20 and 30% stenoses The circumflex artery Nondominant with diffuse 20 and 30% calcifications The right coronary artery Is dominant and has a proximal 30% stenosis with an additional calcified at least 70% stenosis possibly higher based on the hazy calcification. Distally there are concentric 30% stenosis The PINTO ventriculogram reveals Hyperdynamic 70% The left ventricular end-diastolic pressure 15 mmHg IMPRESSION Severe proximal LAD disease as described above with successful stenting reducing the lesion to 0% with 2 contiguous drug-eluting stents Severe proximal to mid dominant right coronary artery disease with stenotic lesion followed by calcification with successful stenting reducing lesion to 0% with 1 drug-eluting stent Hyperdynamic ventricle Normal LVEDP PLAN 1. Plavix and aspirin 2. LDL less than 55 to be achieved with high intensity statin 3. Blood pressure to be aggressively controlled 4. Cardiac rehabilitation 5. Cardiac rehabilitation 6. Avoidance of tobacco products Electronically signed by : Pablo Gutierrez MD 12/16/2023 14:33:42
[2023-12-16 10:51] LABS: Basophils # 0.1 K/mm3 (0-0.2); Basophils % 1.3 % (0.1-2.0); Eosinophils # 0.3 K/mm3 (0.0-0.4); Hematocrit 43.2 % (42.0-52.0); Hemoglobin 13.9 g/dL (14.1-18.0); Lymphocytes # 2.5 K/mm3 (0.7-4.5); Lymphocytes % 29.1 % (10-50); Mean Corpuscular HGB Conc 32.2 g/dL (31.8-35.4); Mean Corpuscular Hemoglobin 29.8 pg (27.0-31.2); Mean Corpuscular Volume 92.4 fl (80-94); Mean Platelet Volume 9.1 fl (7.4-10.4); Monocytes # 0.5 K/mm3 (0.1-1.0); Monocytes % 6.3 % (1.7-9.3); Neutrophils # 5.2 K/mm3 (1.8-7.8); Neutrophils % 60.3 % (37.0-80.0); Platelet Count 271 K/mm3 (142-424); Red Blood Count 4.68 M/mm3 (4.60-6.20); Red Cell Distribution Width 13.7 % (11.5-17.5); White Blood Count 8.5 K/mm3 (4.8-10.8)
[2023-12-16 10:52] LABS: Chloride 104 mmol/L (98-107)
[2023-12-16 10:53] LABS: Potassium 3.9 mmoL/L (3.5-5.1)
[2023-12-16 10:54] LABS: Sodium 141 mmol/L (136-145)
[2023-12-16 10:56] LABS: Anion Gap 9.9 mEq/L (5-15); Blood Urea Nitrogen 23 mg/dl (9-20); Calcium 9.6 mg/dl (8.4-10.2); Carbon Dioxide 31 mmol/L (22.0-30.0); Creatinine Clearance Estimated 71 mL/min (50-200); Estimated Glomerular Filt Rate 50 ml/min (>60); GFR (African American) 60 ML/MIN (>60); Glucose 135 mg/dl (74-100)
[2023-12-16] MEDS: HEPARIN 1,000 UNITS/ML 10ML VIAL (CATH LAB) 10000 UNIT IV ×3 (13:32→14:30)
[2023-12-16] MEDS: LIDOCAINE 1% 10ML MDV 20 ML IJ (13:33)
[2023-12-16] MEDS: 0.9 % SODIUM CHLORIDE 500 ML 25 ML IV (13:33)
[2023-12-16] MEDS: NITROGLYCERIN 800MCG/8ML SYR (CATH LAB) 800 MCG IA (13:33)
[2023-12-16] MEDS: VERAPAMIL 2.5MG/ML 2ML VIAL 2.5 MG IV (13:33)
[2023-12-16] MEDS: diphenhydrAMINE 50MG/ML VIAL 50 MG IV (13:33)
[2023-12-16] MEDS: HEPARIN 1,000 UNITS/500ML NS (CATH LAB) 3000 UNIT IV (13:34)
[2023-12-16] MEDS: CLOPIDOGREL 300MG TABLET 600 MG PO (14:10)
[2023-12-16] MEDS: FENTANYL 100MCG/2ML VIAL 50 MCG IV (14:30)
[2023-12-16] MEDS: MIDAZOLAM HCL 1MG/ML 5ML VIAL 1 MG IV (14:30)
[2023-12-16] MEDS: IOPAMIDOL-370 (76%);100ML BOTTLE 100 ML IV (14:54)
[2023-12-16 14:55] LABS: CATHL Activated Clotting Time 247 SEC (74-125)
== END 2023-12-16 16:30 | disposition home or self-care (01) ==
PROVIDERS: PCP Family Medicine; Visit Provider Internal Medicine
DX: R94.39 Abnormal result of other cardiovascular function study; I27.82 Chronic pulmonary embolism; F03.90 Unspecified dementia, unspecified severity, without behavioral disturbance, psychotic disturbance, mood disturbance, and anxiety; E78.49 Other hyperlipidemia; I51.89 Other ill-defined heart diseases; E11.9 Type 2 diabetes mellitus without complications; Z79.899 Other long term (current) drug therapy; I25.118 Atherosclerotic heart disease of native coronary artery with other forms of angina pectoris; Z79.84 Long term (current) use of oral hypoglycemic drugs; Z87.891 Personal history of nicotine dependence; E66.01 Morbid (severe) obesity due to excess calories; Z68.32 Body mass index [BMI] 32.0-32.9, adult; I10 Essential (primary) hypertension
CPT/HCPCS: 36415; 80048; 85025; 85347; 92928; 93458; 99152; 99153; C1725; C1769; C1874; C9600; J1200; J1644; J2250; J3010; Q9967

== ENCOUNTER 2023-12-20 12:35 | Outpatient (CLI) | payer MEDICARE, SELFPAY ==
[2023-12-20 13:19] LABS: Basophils # 0.1 K/mm3 (0-0.2); Basophils % 0.9 % (0.1-2.0); Eosinophils # 0.3 K/mm3 (0.0-0.4); Eosinophils % 3.3 % (0.1-12.0); Hematocrit 41.4 % (42.0-52.0); Hemoglobin 13.4 g/dL (14.1-18.0); Lymphocytes # 2.1 K/mm3 (0.7-4.5); Lymphocytes % 25.9 % (10-50); Mean Corpuscular HGB Conc 32.4 g/dL (31.8-35.4); Mean Corpuscular Hemoglobin 29.6 pg (27.0-31.2); Mean Corpuscular Volume 91.4 fl (80-94); Mean Platelet Volume 8.6 fl (7.4-10.4); Monocytes # 0.5 K/mm3 (0.1-1.0); Monocytes % 6.7 % (1.7-9.3); Neutrophils # 5.1 K/mm3 (1.8-7.8); Neutrophils % 63.2 % (37.0-80.0); Platelet Count 252 K/mm3 (142-424); Red Blood Count 4.52 M/mm3 (4.60-6.20); Red Cell Distribution Width 13.7 % (11.5-17.5); White Blood Count 8.1 K/mm3 (4.8-10.8)
[2023-12-20 13:28] LABS: Alanine Aminotransferase 25 U/L (12-78); Albumin/Globulin Ratio 1.3 (1.1-1.8); Alkaline Phosphatase 57 U/L (38-126); Aspartate Amino Transferase 28 U/L (17-59); Bilirubin,Total 0.8 mg/dl (0.2-1.3); Blood Urea Nitrogen 18 mg/dl (9-20); Calcium 9.1 mg/dl (8.4-10.2); Carbon Dioxide 29 mmol/L (22.0-30.0); Estimated Glomerular Filt Rate 59 ml/min (>60); GFR (African American) 72 ML/MIN (>60); Glucose 111 mg/dl (74-100); Potassium 3.4 mmoL/L (3.5-5.1); Sodium 139 mmol/L (136-145)
[2023-12-20 13:48] LABS: Anion Gap 10.4 mEq/L (5-15); Chloride 103 mmol/L (98-107)
== END 2023-12-20 23:59 | disposition home or self-care (01) ==
LOC: LAB 12:37
PROVIDERS: PCP Family Medicine; Visit Provider Internal Medicine
DX: I25.10 Atherosclerotic heart disease of native coronary artery without angina pectoris (principal); I10 Essential (primary) hypertension
CPT/HCPCS: 36415; 80053; 85025

== ENCOUNTER 2023-12-27 12:48 | Outpatient (RCR) | payer MEDICARE, SELFPAY | END 2024-03-29 14:00 | disposition home or self-care (01) | LOC: CR 12:48 | PROVIDERS: Visit Provider Internal Medicine | DX: Z95.5 Presence of coronary angioplasty implant and graft (principal) | CPT/HCPCS: 93798 ==

== ENCOUNTER 2023-12-31 14:33 | Emergency (ER) | payer MEDICARE, SELFPAY ==
[2023-12-31] VITALS (10 sets, daily range): BP systolic 94–131; BP diastolic 41–55; PULSE 48–60; RESP 13–32; TEMP 36.7; O2SAT 91–96; BMI 36.9
--- NOTE | 2023-12-31 14:34 | ECG_ITS ---
APPROVED REPORT Exam: Resting ECG HR:66 bpm ECG Measurements Heart Rate 66 AXES QRSd 97 QRS -14 QT 419 T 50 QTc 433 Conclusion ATRIAL FIBRILLATION INCOMPLETE RIGHT BUNDLE BRANCH BLOCK [90+ ms QRS DURATION, TERMINAL R IN V1/V2, 40+ ms S IN I/aVL/V4/V5/V6] NONSPECIFIC T-WAVE ABNORMALITY No STEMI Electronically signed by : GILLES RODRIGUEZ, 12/31/2023 16:24:38
--- NOTE | 2023-12-31 14:41 | ED_ITS ---
<Statement entered by Ana María Morrell DO - 12/31/23 19:38> I was consulted by the HA, and we discussed the complexity of the problems being addressed. I approved the treatment and management plan for this patient's care in the emergency department, thus performing a substantive portion of the medical decision making. Ana María Morrell DO Discharge Plan Disposition Patient Disposition: Home, Self-Care Condition: Good Prescriptions Prescriptions: New nitroglycerin 0.4 mg tablet, sublingual 0.4 mg sublingual Q5M PRN (Reason: chest pain) Qty: 30 0RF Rx Instructions: do not exceed 3 doses per episode isosorbide mononitrate 30 mg tablet extended release 24 hr 30 mg PO DAILY Qty: 30 0RF No Action glipizide 5 mg tablet extended release 24hr 5 mg PO DAILY aspirin 81 mg tablet,delayed release (DR/EC) 81 mg PO DAILY quetiapine [Seroquel] 25 mg tablet 25 mg PO HS Qty: 30 2RF Rx Instructions: Take 1 tablet 1 hour before bedtime ranolazine 500 mg tablet extended release 12 hr 500 mg PO BID Qty: 60 2RF donepezil 10 mg tablet 10 mg PO HS Patient Comments: TAKE 1 TABLET BY MOUTH AT BEDTIME tamsulosin 0.4 mg capsule 0.4 mg PO QHS Patient Comments: TAKE 1 CAPSULE BY MOUTH EVERYDAY AT BEDTIME baclofen 10 mg tablet 10 mg PO TID PRN (Reason: Pain, Mild) Patient Comments: TAKE 1 TABLET BY MOUTH THREE TIMES A DAY escitalopram oxalate 20 mg tablet 20 mg PO DAILY Patient Comments: TAKE 1 TABLET BY MOUTH DAILY amlodipine 10 mg tablet 10 mg PO DAILY Qty: 90 3RF atorvastatin 40 mg tablet 40 mg PO DAILY Qty: 90 3RF carvedilol 6.25 mg tablet 6.25 mg PO BID Qty: 180 3RF chlorthalidone 25 mg tablet 25 mg PO DAILY Qty: 90 3RF lisinopril 40 mg tablet 40 mg PO DAILY Qty: 90 3RF memantine 10 mg tablet 10 mg PO BID 30 Days Qty: 60 2RF clopidogrel [Plavix] 75 mg Tablet 75 mg PO DAILY Qty: 30 6RF Referrals Follow up/Referrals: Provider,Referral, MD [Referring] - See instructions Activity Restrictions/Add. Instructions Additional Instructions/Restrictions: Please start your isosorbide tomorrow. I have sent a prescription to your pharmacy both for your isosorbide and your sublingual nitroglycerin. Follow-up with cardiology the first of next week. Return to ER for any worsening signs or symptoms as needed. Clinical Impressions Clinical Impression: Chest pain Instructions Patient Instructions: DI for Chest Pain Print Language Print Language: [place] Discharge ED Provider: Ana María Morrell HPI <EDNA Ca - Last Filed: 12/31/23 18:32> General Chief Complaint: Chest Pain Stated Complaint: Chest Pain Time Seen by Provider: 12/31/23 14:41 History of Present Illness HPI narrative: Patient presents for evaluation of chest pain. Patient has known cardiovascular disease and recently underwent PCI with stent placement [address] Gutierrez. He has been having daily chest pain since his stenting. He was seen in the cardiology clinic yesterday and was started on ranolazine. It has not helped. They called the office this morning and they were told to come to the ER for evaluation. He denies any dyspnea shortness of breath fever chills hemoptysis hematochezia melena nausea vomit diarrhea. He is not currently on nitrates. He states that the chest pain is left-sided radiates to his back and down his right arm. There is no nausea no vomiting no diaphoresis. Related Data Home Medications ?Medication ?Instructions ?Recorded ?Confirmed aspirin 81 mg tablet,delayed 81 mg PO DAILY heart health 05/18/19 12/30/23 release glipizide 5 mg tablet, extended 5 mg PO DAILY Diabetes 05/18/19 12/30/23 release 24 hr baclofen 10 mg tablet 10 mg PO TID PRN Pain, Mild 11/09/23 12/30/23 donepezil 10 mg tablet 10 mg PO HS 11/09/23 12/30/23 escitalopram oxalate 20 mg tablet 20 mg PO DAILY 11/09/23 12/30/23 tamsulosin 0.4 mg capsule 0.4 mg PO QHS 11/09/23 12/30/23 Previous Rx's ?Medication ?Instructions ?Recorded memantine 10 mg tablet 10 mg PO BID 30 days #60 tabs 07/29/21 amlodipine 10 mg tablet 10 mg PO DAILY #90 tabs 11/09/23 atorvastatin 40 mg tablet 40 mg PO DAILY Cholesterol #90 tabs 11/09/23 carvedilol 6.25 mg tablet 6.25 mg PO BID #180 tabs 11/09/23 chlorthalidone 25 mg tablet 25 mg PO DAILY #90 tabs 11/09/23 lisinopril 40 mg tablet 40 mg PO DAILY htn #90 tabs 11/09/23 quetiapine 25 mg tablet (Seroquel) 25 mg PO HS #30 tabs 12/07/23 clopidogrel 75 mg tablet (Plavix) 75 mg PO DAILY #30 tabs 12/16/23 ranolazine 500 mg tablet,extended 500 mg PO BID #60 tabs 12/30/23 release,12 hr isosorbide mononitrate 30 mg 30 mg PO DAILY #30 tabs 12/31/23 tablet,extended release 24 hr nitroglycerin 0.4 mg sublingual 0.4 mg sublingual Q5M PRN chest 12/31/23 tablet pain #30 tabs Allergies Allergy/AdvReac Type Severity Reaction Status Date / Time No Known Allergies Allergy Verified 12/30/23 08:53 [facility] <EDNA Ca - Last Filed: 12/31/23 18:32> [facility] Disclaimer: The information contained in this section may have been updated after the patient was seen, as this information can be updated by other users. Medical History (Updated 12/31/23 @ 17:20 by EDNA Ca) Fatigue BASIM (obstructive sleep apnea) History of basal cell carcinoma Dyspnea Pulmonary embolism Dementia HLD (hyperlipidemia) HTN (hypertension) Diastolic dysfunction CAD (coronary artery disease) Surgical History History of foot surgery History of back surgery History of bunionectomy History of cholecystectomy History of bilateral knee replacement Family History Other Cancer Coronary artery disease Diabetes Heart attack Hyperlipidemia Hypertension Social History Smoking Status: Never smoker alcohol intake: current alcohol intake frequency: holidays/special occasions only substance use type: denies use current occupational status: retired Travel in the last 8 weeks: Inside the [place] household members: spouse housing: house marital status: number of children: 3 caffeine: Yes Other Medical History Have you received the Flu Vaccine for this season: Yes Have you received the Pneumonia Vaccine: Yes <EDNA Ca - Last Filed: 12/31/23 18:32> ROS Obtained: Yes Systems reviewed as appropriate & no additional complaints except as documented Physical Exam <EDNA Ca - Last Filed: 12/31/23 18:32> General General appearance: alert and in no apparent distress Respiratory Respiratory exam: Present normal lung sounds bilaterally Cardiovascular Cardiovascular exam: Present regular rate Neurological Exam Neurological exam: Present alert and oriented X3 HEART Score <EDNA Ca - Last Filed: 12/31/23 18:32> HEART Score HEART Score assessment performed?: Yes History (anamnesis): Moderately suspicious ECG: Non-specific disturbance Age: >65 years Risk factors: Atherosclerosis history Troponin: </= normal limit HEART Score: 6 Critical Care <EDNA Ca - Last Filed: 12/31/23 18:32> Critical Care Time Critical Care Time: No Medical Decision Making <EDNA Ca - Last Filed: 12/31/23 18:32> Medical Records Medical records reviewed: Yes I reviewed the patient's medical records. Buck Inquiry Pt receiving controlled substance: No Vital Signs Vital Signs: 12/31/23 14:33 12/31/23 15:00 12/31/23 15:30 Temperature 98.0 F Temperature Source Oral Pulse Rate 50 L 60 Pulse Rate [Left Radial] 59 L Respiratory Rate 13 22 19 Blood Pressure 124/55 L 131/55 L Blood Pressure [Right Arm] 124/55 L Blood Pressure Mean 64 80 Blood Pressure Mean [Right Arm] 78 02 Sat by Pulse Oximetry 96 95 93 L Oxygen Delivery Method Room Air 12/31/23 16:00 12/31/23 16:30 12/31/23 17:00 Temperature Temperature Source Pulse Rate 59 L 51 L 55 L Pulse Rate [Left Radial] Respiratory Rate 18 32 H 19 Blood Pressure 124/52 L 109/50 L 94/42 L Blood Pressure [Right Arm] Blood Pressure Mean Blood Pressure Mean [Right Arm] 02 Sat by Pulse Oximetry 93 L 91 L 92 L Oxygen Delivery Method Lab Data Lab results reviewed: Yes I reviewed the patient's lab results. Labs: Lab Results 12/31/23 14:38: WBC 10.2, RBC 4.49 L, Hgb 13.7 L, Hct 40.9 L, MCV 90.9, MCH 30.5, MCHC 33.5, RDW 13.7, Plt Count 288, MPV 8.9, Neut % (Auto) 67.6, Lymph % (Auto) 23.1, [place] % (Auto) 6.9, Eos % (Auto) 1.8, Baso % (Auto) 0.6, Neut # (Auto) 6.9, Lymph # (Auto) 2.4, [place] # (Auto) 0.7, Eos # (Auto) 0.2, Baso # (Auto) 0.1, Sodium 140, Potassium 3.7, Chloride 103, Carbon Dioxide 27, Anion Gap 13.7, BUN 18, Creatinine 1.30 H, Estimated Creat Clear 75, Estimated GFR 54 L, Est GFR ( Amer) 65, Glucose 114 H, Calcium 9.1, Magnesium 1.3 L, Total Bilirubin 0.6, AST 25, ALT 22, Alkaline Phosphatase 56, Troponin I < 0.01, NT-Pro-B Natriuret Pep 118, Total Protein 7.3, Albumin 4.3, Globulin 3.0, Albumin/Globulin Ratio 1.4, HIV 1&2 Antibody Rapid Nonreactive 12/31/23 17:54: Troponin I < 0.01 12/31/23 14:38 12/31/23 14:38 Response Orders (Tests/Meds): ED MEDICATIONS Generic Name Dose Route Start Last Admin Trade Name Freq PRN Reason Stop Dose Admin Nitroglycerin 0.4 mg 12/31/23 16:33 12/31/23 16:53 Nitroglycerin 0.4mg Sl Tablet SL 01/30/24 16:32 0.4 mg Q5MINP PRN Administration Chest Pain Discontinued Medications Generic Name Dose Route Start Last Admin Trade Name Freq PRN Reason Stop Dose Admin Acetaminophen 1,000 mg 12/31/23 14:47 12/31/23 15:07 Acetaminophen 500mg Tab PO 12/31/23 14:48 1,000 mg ONCE ONE Administration Magnesium Sulfate 2 gm in 50 mls @ 50 mls/hr 12/31/23 15:35 12/31/23 16:33 Magnesium Sulfate 2gm/50ml Premix IV 12/31/23 16:34 50 mls/hr ONCE ONE Administration Iopamidol 80 ml 12/31/23 15:53 12/31/23 15:53 Iopamidol-370 (76%);100ml Bottle IV 12/31/23 15:54 80 ml ONCE ONE Administration Isosorbide Mononitrate 30 mg 12/31/23 15:17 12/31/23 15:53 Isosorbide [place] 30mg Tab.Er.24h PO 12/31/23 15:18 30 mg ONCE ONE Administration Sodium Chloride 50 ml 12/31/23 15:53 12/31/23 15:53 0.9 % Sodium Chloride 50 Ml Vial IV 12/31/23 15:54 50 ml ONCE ONE Administration Sodium Chloride 10 ml 12/31/23 15:53 12/31/23 15:53 Sodium Chloride 0.9% 10ml Syr (Rad Only) IV 12/31/23 15:54 10 ml ONCE ONE Administration Sodium Chloride 500 ml 12/31/23 16:53 12/31/23 17:04 Sodium Chloride 0.9% 500ml Bag IV 12/31/23 16:54 500 ml ONCE ONE Administration ORDERS Category Date Time Status CT angio chest - dissection Stat Cat Scan 12/31/23 14:47 Completed BNP [NT Pro Brain Natriuretic Pep.] Stat Lab 12/31/23 14:38 Completed CBC w/Auto Diff [Complete Blood Count Auto Diff] Stat Lab 12/31/23 14:38 Completed CMP [Comprehensive Metabolic Panel] Stat Lab 12/31/23 14:38 Completed HIV (1&2) Antibody Rapid Stat Lab 12/31/23 14:38 Completed Hep C Ab with Reflex to RNA Stat Lab 12/31/23 14:38 Received Magnesium Stat Lab 12/31/23 14:38 Completed Trop I [Troponin I] Stat Lab 12/31/23 14:38 Completed Troponin I Q3H Lab 12/31/23 17:54 Completed Troponin I Q3H Lab 12/31/23 21:00 Ordered MDM Narrative Medical Decision Narrative: In summary patient is a 73-year-old male who presents to the emergency department for evaluation of chest pain. Patient is hemodynamically stable upon arrival, afebrile. Physical exam is remarkable for nonreproducible chest pain on exam, normal heart sounds normal breath sounds. Patient appears to be in a controlled A-fib on the bedside monitor. Breath sounds are clinical bilaterally.. Differential diagnosis includes coronary angio spasm versus ACS etc. Initial workup will be conducted with hematologic labs CT dissection protocol. Initial interventions include acetaminophen and cardiology consult. Had an initial interactive discussion with Dr. Gutierrez about patient management. He would like to trend to troponins and start the patient on Imdur for now. If his troponins are negative will send the patient home on nitrates. Initial workup reviewed by me shows that they are nonactionable with the exception of a low magnesium which has been replaced and his troponin is undetectable. The patient was placed in observation status at 1600 hrs. Medical necessity for observational status is serial troponins. The patient was provided serial reevaluations continuous cardiac monitoring and pulse oximetry while awaiting results. If his troponin remains undetectable, my informal interpretation of his CT of the chest does not show any acute processes, I attempted to get him pain-free with nitroglycerin but had to discontinue due to low blood pressure however 1 troponin significantly reduced his pain where nothing had worked thus far.. Given this I had interactive discussion with the patient regarding Dr. Gutierrez's recommendations and the plan. Patient verbalized understanding and agreement. Thus he is appropriate for discharge with follow-up with Dr. Gutierrez first part of next week, prescription for isosorbide and nitroglycerin sent to his pharmacy. Total time in observation was 2 hours 30 minutes. <Ana María Morrell, DO - Last Filed: 12/31/23 15:45> Vital Signs Vital Signs: 12/31/23 14:33 12/31/23 15:00 12/31/23 15:30 Temperature 98.0 F Temperature Source Oral Pulse Rate 50 L 60 Pulse Rate [Left Radial] 59 L Respiratory Rate 13 22 19 Blood Pressure 124/55 L 131/55 L Blood Pressure [Right Arm] 124/55 L Blood Pressure Mean 64 80 Blood Pressure Mean [Right Arm] 78 02 Sat by Pulse Oximetry 96 95 93 L Oxygen Delivery Method Room Air 12/31/23 16:00 12/31/23 16:30 12/31/23 17:00 Temperature Temperature Source Pulse Rate 59 L 51 L 55 L Pulse Rate [Left Radial] Respiratory Rate 18 32 H 19 Blood Pressure 124/52 L 109/50 L 94/42 L Blood Pressure [Right Arm] Blood Pressure Mean Blood Pressure Mean [Right Arm] 02 Sat by Pulse Oximetry 93 L 91 L 92 L Oxygen Delivery Method Lab Data Labs: Lab Results 12/31/23 14:38: WBC 10.2, RBC 4.49 L, Hgb 13.7 L, Hct 40.9 L, MCV 90.9, MCH 30.5, MCHC 33.5, RDW 13.7, Plt Count 288, MPV 8.9, Neut % (Auto) 67.6, Lymph % (Auto) 23.1, [place] % (Auto) 6.9, Eos % (Auto) 1.8, Baso % (Auto) 0.6, Neut # (Auto) 6.9, Lymph # (Auto) 2.4, [place] # (Auto) 0.7, Eos # (Auto) 0.2, Baso # (Auto) 0.1, Sodium 140, Potassium 3.7, Chloride 103, Carbon Dioxide 27, Anion Gap 13.7, BUN 18, Creatinine 1.30 H, Estimated Creat Clear 75, Estimated GFR 54 L, Est GFR ( Amer) 65, Glucose 114 H, Calcium 9.1, Magnesium 1.3 L, Total Bilirubin 0.6, AST 25, ALT 22, Alkaline Phosphatase 56, Troponin I < 0.01, NT-Pro-B Natriuret Pep 118, Total Protein 7.3, Albumin 4.3, Globulin 3.0, Albumin/Globulin Ratio 1.4, HIV 1&2 Antibody Rapid Nonreactive 12/31/23 17:54: Troponin I < 0.01 Response Orders (Tests/Meds): ED MEDICATIONS Generic Name Dose Route Start Last Admin Trade Name Freq PRN Reason Stop Dose Admin Nitroglycerin 0.4 mg 12/31/23 16:33 12/31/23 16:53 Nitroglycerin 0.4mg Sl Tablet SL 01/30/24 16:32 0.4 mg Q5MINP PRN Administration Chest Pain Discontinued Medications Generic Name Dose Route Start Last Admin Trade Name Freq PRN Reason Stop Dose Admin Acetaminophen 1,000 mg 12/31/23 14:47 12/31/23 15:07 Acetaminophen 500mg Tab PO 12/31/23 14:48 1,000 mg ONCE ONE Administration Magnesium Sulfate 2 gm in 50 mls @ 50 mls/hr 12/31/23 15:35 12/31/23 16:33 Magnesium Sulfate 2gm/50ml Premix IV 12/31/23 16:34 50 mls/hr ONCE ONE Administration Iopamidol 80 ml 12/31/23 15:53 12/31/23 15:53 Iopamidol-370 (76%);100ml Bottle IV 12/31/23 15:54 80 ml ONCE ONE Administration Isosorbide Mononitrate 30 mg 12/31/23 15:17 12/31/23 15:53 Isosorbide [place] 30mg Tab.Er.24h PO 12/31/23 15:18 30 mg ONCE ONE Administration Sodium Chloride 50 ml 12/31/23 15:53 12/31/23 15:53 0.9 % Sodium Chloride 50 Ml Vial IV 12/31/23 15:54 50 ml ONCE ONE Administration Sodium Chloride 10 ml 12/31/23 15:53 12/31/23 15:53 Sodium Chloride 0.9% 10ml Syr (Rad Only) IV 12/31/23 15:54 10 ml ONCE ONE Administration Sodium Chloride 500 ml 12/31/23 16:53 12/31/23 17:04 Sodium Chloride 0.9% 500ml Bag IV 12/31/23 16:54 500 ml ONCE ONE Administration ORDERS Category Date Time Status CT angio chest - dissection Stat Cat Scan 12/31/23 14:47 Completed BNP [NT Pro Brain Natriuretic Pep.] Stat Lab 12/31/23 14:38 Completed CBC w/Auto Diff [Complete Blood Count Auto Diff] Stat Lab 12/31/23 14:38 Completed CMP [Comprehensive Metabolic Panel] Stat Lab 12/31/23 14:38 Completed HIV (1&2) Antibody Rapid Stat Lab 12/31/23 14:38 Completed Hep C Ab with Reflex to RNA Stat Lab 12/31/23 14:38 Received Magnesium Stat Lab 12/31/23 14:38 Completed Trop I [Troponin I] Stat Lab 12/31/23 14:38 Completed Troponin I Q3H Lab 12/31/23 17:54 Completed Troponin I Q3H Lab 12/31/23 21:00 Ordered ECG Data Tracing #1: Attestation: I reviewed this ECG and interpreted as documented below: ECG Narrative: Atrial fibrillation with a ventricular rate of 66 bpm. Incomplete right bundle branch block. Nonspecific T wave abnormality but no acute ST changes concerning for acute ischemia ECG initial impression date: 12/31/23 ECG initial impression time: 14:35
--- NOTE | 2023-12-31 14:47 | CT_ITS ---
PROCEDURE INFORMATION: Exam: CTA Chest With Contrast Exam date and time: 12/31/2023 3:48 PM Age: 73 years old Clinical indication: Pain; Chest pressure; Additional info: Chest pain TECHNIQUE: Imaging protocol: Computed tomographic angiography of the chest with contrast. Exam focused on the arteries. 3D rendering (Not supervised by radiologist): MIP and/or 3D reconstructed images were created by the technologist. Radiation optimization: All CT scans at this facility use at least one of these dose optimization techniques: automated exposure control; mA and/or kV adjustment per patient size (includes targeted exams where dose is matched to clinical indication); or iterative reconstruction. Contrast material: ISOVUE 370; Contrast volume: 80 ml; Contrast route: INTRAVENOUS (IV); COMPARISON: MR CERVICAL SPINE WO CON 11/17/2018 3:33 PM FINDINGS: Pulmonary arteries: There is no evidence for clinically relevant pulmonary arterial filling defect. Tiny distal filling defects may be present but are of dubious clinical significance. Aorta: There is atherosclerotic disease of the visualized aorta and its major branch vessels. The aorta is normal caliber without focal abnormality. No dissection or aneurysm. Lungs: Scattered areas of bronchial wall thickening which are likely chronic inflammatory. A few areas of subpleural reticulation are noted, nonspecific. There is patchy atelectasis at the lung bases. Pleural spaces: Unremarkable. No pneumothorax. No pleural effusion. Heart: Unremarkable. No cardiomegaly. No pericardial effusion. Coronary arteries: There is moderate coronary atherosclerotic disease/calcification although evaluation is limited secondary to the non gated nature of the study. Lymph nodes: Unremarkable. No enlarged lymph nodes. Gallbladder and biliary ducts: There is air within the bile ducts compatible with pneumobilia. Kidneys: Partially visualized large left renal cyst. Bones/joints: There is diffuse degenerative disease of the visualized osseous structures. There is surgical hardware within the lumbar spine. Soft tissues: Unremarkable. IMPRESSION: 1. The aorta is normal caliber without focal abnormality. No dissection or aneurysm. 2. No evidence for clinically relevant pulmonary arterial filling defect. COMMENTS: Consistent with the [employer]'s Incidental Findings Committee white paper (J Am Selvin Radiol 2018): Any incidental renal lesion less than 1 cm or classified as too small to characterize, or any incidental cystic renal lesion characterized as simple-appearing, is likely benign. No follow-up imaging is recommended for these lesions per consensus recommendations based on imaging criteria.
[2023-12-31 14:57] LABS: Basophils # 0.1 K/mm3 (0-0.2); Basophils % 0.6 % (0.1-2.0); Eosinophils # 0.2 K/mm3 (0.0-0.4); Eosinophils % 1.8 % (0.1-12.0); Hematocrit 40.9 % (42.0-52.0); Hemoglobin 13.7 g/dL (14.1-18.0); Lymphocytes # 2.4 K/mm3 (0.7-4.5); Lymphocytes % 23.1 % (10-50); Mean Corpuscular HGB Conc 33.5 g/dL (31.8-35.4); Mean Corpuscular Hemoglobin 30.5 pg (27.0-31.2); Mean Corpuscular Volume 90.9 fl (80-94); Mean Platelet Volume 8.9 fl (7.4-10.4); Monocytes # 0.7 K/mm3 (0.1-1.0); Monocytes % 6.9 % (1.7-9.3); Neutrophils # 6.9 K/mm3 (1.8-7.8); Neutrophils % 67.6 % (37.0-80.0); Platelet Count 288 K/mm3 (142-424); Red Blood Count 4.49 M/mm3 (4.60-6.20); Red Cell Distribution Width 13.7 % (11.5-17.5); White Blood Count 10.2 K/mm3 (4.8-10.8)
[2023-12-31 15:02] LABS: Chloride 103 mmol/L (98-107)
[2023-12-31 15:03] LABS: Albumin Level 4.3 g/dl (3.5-5.0); Potassium 3.7 mmoL/L (3.5-5.1); Sodium 140 mmol/L (136-145)
[2023-12-31 15:06] LABS: Alanine Aminotransferase 22 U/L (12-78); Albumin/Globulin Ratio 1.4 (1.1-1.8); Alkaline Phosphatase 56 U/L (38-126); Anion Gap 13.7 mEq/L (5-15); Aspartate Amino Transferase 25 U/L (17-59); Bilirubin,Total 0.6 mg/dl (0.2-1.3); Blood Urea Nitrogen 18 mg/dl (9-20); Calcium 9.1 mg/dl (8.4-10.2); Carbon Dioxide 27 mmol/L (22.0-30.0); Estimated Glomerular Filt Rate 54 ml/min (>60); GFR (African American) 65 ML/MIN (>60); Glucose 114 mg/dl (74-100); Magnesium 1.3 mg/dl (1.6-2.3); Total Protein,Serum 7.3 g/dl (6.3-8.2)
[2023-12-31] MEDS: ACETAMINOPHEN 500MG TAB 1000 MG PO (15:07)
--- NOTE | 2023-12-31 15:09 | PC.NURSE ---
Rounded on the pt. no new needs voiced. call clifford in reach.
[2023-12-31 15:15] LABS: NT Pro Brain Natriuretic Pep. 118 pg/mL (0-125)
[2023-12-31 15:26] LABS: Creatinine Clearance Estimated 75 mL/min (50-200); Troponin I < 0.01 ng/ml (0.00-0.034)
--- NOTE | 2023-12-31 15:26 | HMH.ITSTN ---
labs not back as of 3:26pm. ct is handed off to Arielle Kincaid.
[2023-12-31 15:36] LABS: HIV (1&2) Antibody Rapid NONREACTIVE (NONREACTIVE)
--- NOTE | 2023-12-31 15:52 | PC.NURSE ---
DON AT BEDSIDE TO UPDATE FAMILY
[2023-12-31] MEDS: 0.9 % SODIUM CHLORIDE 50 ML VIAL IV (15:53)
[2023-12-31] MEDS: SODIUM CHLORIDE 0.9% 10ML SYR (RAD ONLY) 10 ML IV (15:53)
[2023-12-31] MEDS: IOPAMIDOL-370 (76%);100ML BOTTLE 80 ML IV (15:53)
[2023-12-31] MEDS: ISOSORBIDE MONO 30MG TAB.ER.24H 30 MG PO (15:53)
[2023-12-31] MEDS: MAGNESIUM SULFATE IN WATER 2 GM/50 ML PIGGYBACK IV (16:33)
[2023-12-31] MEDS: NITROGLYCERIN 0.4MG SL TABLET 0.4 MG SL (16:53)
--- NOTE | 2023-12-31 16:53 | PC.NURSE ---
pt given 1 sublingual nitro for chest pain. pts blood pressure not responding well to nitro and chest pain still present per pt report. awilda zhang notified.
[2023-12-31] MEDS: SODIUM CHLORIDE 0.9% 500ML BAG 500 ML IV (17:04)
[2023-12-31 18:29] LABS: Troponin I < 0.01 ng/ml (0.00-0.034)
[2024-01-01 07:29] LABS: HCV Ab Non Reactive (Non Reactive)
== END 2023-12-31 18:44 | disposition home or self-care (01) ==
PROVIDERS: Emergency Medicine; Physician Assistant; Emergency Provider Emergency Medicine; PCP Family Medicine
DX: R07.9 Chest pain, unspecified (principal)
CPT/HCPCS: 71275; 80053; 83735; 83880; 84484; 85025; 86803; 87389; 93005; 96365; 99285; J3475; Q9967

== ENCOUNTER 2024-01-25 14:57 | Emergency (ER) | payer MEDICARE, SELFPAY ==
--- NOTE | 2024-01-25 14:50 | ED_ITS ---
Discharge Plan Disposition Patient Disposition: Home, Self-Care Condition: Good Prescriptions Prescriptions: No Action glipizide 5 mg tablet extended release 24hr 5 mg PO DAILY aspirin 81 mg tablet,delayed release (DR/EC) 81 mg PO DAILY quetiapine [Seroquel] 25 mg tablet 25 mg PO HS Qty: 30 2RF Rx Instructions: Take 1 tablet 1 hour before bedtime donepezil 10 mg tablet 10 mg PO HS Patient Comments: TAKE 1 TABLET BY MOUTH AT BEDTIME tamsulosin 0.4 mg capsule 0.4 mg PO QHS Patient Comments: TAKE 1 CAPSULE BY MOUTH EVERYDAY AT BEDTIME baclofen 10 mg tablet 10 mg PO TID PRN (Reason: Pain, Mild) Patient Comments: TAKE 1 TABLET BY MOUTH THREE TIMES A DAY escitalopram oxalate 20 mg tablet 20 mg PO DAILY Patient Comments: TAKE 1 TABLET BY MOUTH DAILY amlodipine 10 mg tablet 10 mg PO DAILY Qty: 90 3RF atorvastatin 40 mg tablet 40 mg PO DAILY Qty: 90 3RF lisinopril 40 mg tablet 40 mg PO DAILY Qty: 90 3RF carvedilol 6.25 mg tablet 3.125 mg PO BID Qty: 180 3RF chlorthalidone 25 mg tablet 12.5 mg PO DAILY Qty: 90 3RF ranolazine 1,000 mg tablet extended release 12 hr 1,000 mg PO BID Qty: 60 5RF memantine 10 mg tablet 10 mg PO BID 30 Days Qty: 60 2RF clopidogrel [Plavix] 75 mg Tablet 75 mg PO DAILY Qty: 30 6RF nitroglycerin 0.4 mg tablet, sublingual 0.4 mg sublingual Q5M PRN (Reason: chest pain) Qty: 30 0RF Rx Instructions: do not exceed 3 doses per episode Activity Restrictions/Add. Instructions Additional Instructions/Restrictions: Your stitches need to come out in 5 to 7 days. Please follow-up with your PCP [facility] or ER to have your sutures moved. Return immediately for any increasing pain redness drainage. Clinical Impressions Clinical Impression: Complex laceration of face Qualifiers: Encounter type: initial encounter Qualified Code(s): S01.91XA - Laceration without foreign body of unspecified part of head, initial encounter Instructions Patient Instructions: DI for Laceration Repair Print Language Print Language: Lithuanian Discharge ED Provider: Dakota Colón Adult HPI <EDNA Ca - Last Filed: 01/25/24 20:17> General Chief complaint: Fall Stated complaint: fall Time Seen by Provider: 01/25/24 15:09 History of Present Illness HPI narrative: Patient presents for evaluation of a fall. Patient was helping his carrying groceries and at baseline he has difficulty ambulating due to dementia. He had a witnessed fall but did not have a syncopal event. He struck his forehead on the floor but suffered no other injuries. He suffered a large laceration to the right forehead and is on aspirin and Plavix. He denies loss of consciousness fever chills hemoptysis hematochezia melena nausea vomiting diarrhea Related Data Home Medications ?Medication ?Instructions ?Recorded ?Confirmed aspirin 81 mg tablet,delayed 81 mg PO DAILY heart health 05/18/19 01/12/24 release glipizide 5 mg tablet, extended 5 mg PO DAILY Diabetes 05/18/19 01/12/24 release 24 hr baclofen 10 mg tablet 10 mg PO TID PRN Pain, Mild 11/09/23 01/12/24 donepezil 10 mg tablet 10 mg PO HS 11/09/23 01/12/24 escitalopram oxalate 20 mg tablet 20 mg PO DAILY 11/09/23 01/12/24 tamsulosin 0.4 mg capsule 0.4 mg PO QHS 11/09/23 01/12/24 Previous Rx's ?Medication ?Instructions ?Recorded memantine 10 mg tablet 10 mg PO BID 30 days #60 tabs 07/29/21 amlodipine 10 mg tablet 10 mg PO DAILY #90 tabs 11/09/23 atorvastatin 40 mg tablet 40 mg PO DAILY Cholesterol #90 tabs 11/09/23 lisinopril 40 mg tablet 40 mg PO DAILY htn #90 tabs 11/09/23 quetiapine 25 mg tablet (Seroquel) 25 mg PO HS #30 tabs 12/07/23 clopidogrel 75 mg tablet (Plavix) 75 mg PO DAILY #30 tabs 12/16/23 nitroglycerin 0.4 mg sublingual 0.4 mg sublingual Q5M PRN chest 12/31/23 tablet pain #30 tabs ranolazine 1,000 mg 1,000 mg PO BID #60 tabs 01/03/24 tablet,extended release,12 hr carvedilol 6.25 mg tablet 3.125 mg (1/2 x 6.25 mg) PO BID 01/12/24 #180 tabs chlorthalidone 25 mg tablet 12.5 mg (1/2 x 25 mg) PO DAILY #90 01/12/24 tabs Allergies Allergy/AdvReac Type Severity Reaction Status Date / Time No Known Allergies Allergy Verified 01/12/24 09:46 PFS <EDNA Ca - Last Filed: 01/25/24 20:17> [facility] Disclaimer: The information contained in this section may have been updated after the patient was seen, as this information can be updated by other users. Medical History Fatigue BASIM (obstructive sleep apnea) History of basal cell carcinoma Dyspnea Pulmonary embolism Dementia HLD (hyperlipidemia) HTN (hypertension) Diastolic dysfunction CAD (coronary artery disease) Surgical History History of foot surgery History of back surgery History of bunionectomy History of cholecystectomy History of bilateral knee replacement Family History Other Cancer Coronary artery disease Diabetes Heart attack Hyperlipidemia Hypertension Social History Smoking Status: Former smoker alcohol intake: current alcohol intake frequency: holidays/special occasions only substance use type: denies use current occupational status: retired household members: spouse housing: house marital status: number of children: 3 caffeine: Yes Other Medical History Have you received the Flu Vaccine for this season: Yes Have you received the Pneumonia Vaccine: Yes <EDNA Ca - Last Filed: 01/25/24 20:17> ROS Obtained: Yes Systems reviewed as appropriate & no additional complaints except as documented Physical Exam <EDNA Ca Last Filed: 01/25/24 20:17> General General appearance: alert and in no apparent distress Respiratory Respiratory exam: Present normal lung sounds bilaterally Cardiovascular Cardiovascular exam: Present regular rate Neurological Exam Neurological exam: Present alert and oriented X3 Medical Decision Making <EDNA Ca Last Filed: 01/25/24 20:17> Medical Records Medical records reviewed: Yes I reviewed the patient's medical records. Screening: Per USPSTF and CDC recommendations, given the prevalence of disease in our region, it is our hospital?s policy to screen for HIV and viral Hepatitis for all patients aged 18 and over and those with ongoing risk factors. Buck Inquiry Pt receiving controlled substance: No Vital Signs: 01/25/24 14:57 01/25/24 15:00 01/25/24 18:58 Temperature 98.2 F 98.2 F Temperature Source Oral Pulse Rate 65 60 Pulse Rate [Right] 62 Respiratory Rate 18 16 20 Blood Pressure 131/65 136/56 L Blood Pressure [Right Arm] 131/65 Blood Pressure Mean [Right Arm] 87 Blood Pressure Source [Right Arm] Automatic Cuff 02 Sat by Pulse Oximetry 98 95 Oxygen Delivery Method Room Air Room Air Lab Data Lab results reviewed: Yes I reviewed the patient's lab results. Lab Results 01/25/24 14:34: WBC 8.5, RBC 4.59 L, Hgb 13.9 L, Hct 42.1, MCV 91.6, MCH 30.3, MCHC 33.0, RDW 13.9, Plt Count 288, MPV 8.5, Neut % (Auto) 64.2, Lymph % (Auto) 25.7, [place] % (Auto) 6.9, Eos % (Auto) 2.2, Baso % (Auto) 0.9, Neut # (Auto) 5.5, Lymph # (Auto) 2.2, [place] # (Auto) 0.6, Eos # (Auto) 0.2, Baso # (Auto) 0.1, PT 11.5, INR 1.03, Sodium 138, Potassium 4.0, Chloride 100, Carbon Dioxide 25, A nion Gap 17.0 H, BUN 23 H, Creatinine 1.40 H, Estimated Creat Clear 67, E stimated GFR 49 L, Est GFR ( Amer) 60, Glucose 189 H, Calcium 9.3, Total Bilirubin 0.7, AST 27, ALT 25, Alkaline Phosphatase 48, Total Protein 7.2, Albumin 4.1, Globulin 3.1, Albumin/Globulin Ratio 1.3 01/25/24 14:34 01/25/24 14:34 Orders (Tests/Meds): ED MEDICATIONS Discontinued Medications Generic Name Dose Route Start Last Admin Trade Name Freq PRN Reason Stop Dose Admin Acetaminophen 1,000 mg 01/25/24 14:50 01/25/24 15:04 Acetaminophen 1,000mg/100ml Vial IV 01/25/24 14:51 1,000 mg ONCE ONE Administration Sodium Chloride 1,000 mls @ 999 mls/hr 01/25/24 14:50 01/25/24 15:04 Sod Chlor 0.9% 1000ml Bag IV 01/25/24 15:50 999 mls/hr .Q1H1M ONE Administration Iopamidol 160 ml 01/25/24 16:20 01/25/24 16:20 Iopamidol-370 (76%);100ml Bottle IV 01/25/24 16:21 160 ml ONCE ONE Administration Lidocaine/Epinephrine 20 ml 01/25/24 17:03 01/25/24 17:14 Lidocaine 1% W/Epi 1:100,000 20ml Vial SQ 01/25/24 17:04 20 ml ONCE ONE Administration Sodium Chloride 10 ml 01/25/24 16:19 01/25/24 16:20 Sodium Chloride 0.9% 10ml Syr (Rad Only) IV 01/25/24 16:20 10 ml ONCE ONE Administration Sodium Chloride 100 ml 01/25/24 16:19 01/25/24 16:20 0.9 % Sodium Chloride 50 Ml Vial IV 01/25/24 16:20 100 ml ONCE ONE Administration Tetanus/Reduced Diphtheria/Acell Pertussis 0.5 ml 01/25/24 17:03 01/25/24 17:16 Tet/Diphth/Pert-Adult 0.5ml Syringe IM 01/25/24 17:04 0.5 ml .ONCE ONE Administration ORDERS Category Date Time Status CT angio abdomen pelvis Stat Cat Scan 01/25/24 14:[address] angio chest - dissection Stat Cat Scan 01/25/24 14:[address] angio head Stat Cat Scan 01/25/24 14:[address] angio neck Stat Cat Scan 01/25/24 14:[address] bony pelvis Stat Cat Scan 01/25/24 14:[address] cervical spine wo con Stat Cat Scan 01/25/24 14:[address] facial bones wo con Stat Cat Scan 01/25/24 14:[address] head/brain wo con Stat Cat Scan 01/25/24 14:[address] lumbar spine wo con Stat Cat Scan 01/25/24 14:[address] thoracic spine wo con Stat Cat Scan 01/25/24 14:51 Completed CBC w/Auto Diff [Complete Blood Count Auto Diff] Stat Lab 01/25/24 14:34 Completed CMP [Comprehensive Metabolic Panel] Stat Lab 01/25/24 14:34 Completed INR [Prothrombin Time INR] Stat Lab 01/25/24 14:34 Completed Medical Decision Narrative: In summary patient is a 74-year-old male who presents to the emergency department for evaluation of a witnessed ground-level fall. Patient is hemodynamically stable upon arrival, febrile. Physical exam is remarkable for a very large stellate complex laceration to the forehead without any palpable bony deformity. Patient has no C-spine tenderness no palpable bony deformity anywhere else no evidence of trauma anywhere else. Patient has no dorsal spine tenderness Bora Coma Score is 15 and he is awake alert and oriented to person place and circumstance currently. Differential diagnosis includes skull fracture versus intracranial bleed versus C-spine or spine injury. Initial workup will be conducted with trauma scans hematologic labs.. Initial interventions include Tylenol crystalloid bolus. Initial workup reviewed by me reassuringly show that his hematologic labs are nonactionable and my informal interpretation of his imaging shows no acute bony injury and CT scan of the head shows no acute intracranial abnormalities. Given this his scalp laceration was closed primarily with 26 5.0 nylon stitches. Patient remains neurologically intact with no focal deficits and is appropriate for discharge with strict return precautions and instructions on wound care. Stitches to come out in 5 to 7 days. <Dakota Colón MD - Last Filed: 01/25/24 21:46> Vital Signs: 01/25/24 14:57 01/25/24 15:00 01/25/24 18:58 Temperature 98.2 F 98.2 F Temperature Source Oral Pulse Rate 65 60 Pulse Rate [Right] 62 Respiratory Rate 18 16 20 Blood Pressure 131/65 136/56 L Blood Pressure [Right Arm] 131/65 Blood Pressure Mean [Right Arm] 87 Blood Pressure Source [Right Arm] Automatic Cuff 02 Sat by Pulse Oximetry 98 95 Oxygen Delivery Method Room Air Room Air Lab Data Lab Results 01/25/24 14:34: WBC 8.5, RBC 4.59 L, Hgb 13.9 L, Hct 42.1, MCV 91.6, MCH 30.3, MCHC 33.0, RDW 13.9, Plt Count 288, MPV 8.5, Neut % (Auto) 64.2, Lymph % (Auto) 25.7, [place] % (Auto) 6.9, Eos % (Auto) 2.2, Baso % (Auto) 0.9, Neut # (Auto) 5.5, Lymph # (Auto) 2.2, [place] # (Auto) 0.6, Eos # (Auto) 0.2, Baso # (Auto) 0.1, PT 11.5, INR 1.03, Sodium 138, Potassium 4.0, Chloride 100, Carbon Dioxide 25, A nion Gap 17.0 H, BUN 23 H, Creatinine 1.40 H, Estimated Creat Clear 67, E stimated GFR 49 L, Est GFR ( Amer) 60, Glucose 189 H, Calcium 9.3, Total Bilirubin 0.7, AST 27, ALT 25, Alkaline Phosphatase 48, Total Protein 7.2, Albumin 4.1, Globulin 3.1, Albumin/Globulin Ratio 1.3 Orders (Tests/Meds): ED MEDICATIONS Discontinued Medications Generic Name Dose Route Start Last Admin Trade Name Kennyq PRN Reason Stop Dose Admin Acetaminophen 1,000 mg 01/25/24 14:50 01/25/24 15:04 Acetaminophen 1,000mg/100ml Vial IV 01/25/24 14:51 1,000 mg ONCE ONE Administration Sodium Chloride 1,000 mls @ 999 mls/hr 01/25/24 14:50 01/25/24 15:04 Sod Chlor 0.9% 1000ml Bag IV 01/25/24 15:50 999 mls/hr .Q1H1M ONE Administration Iopamidol 160 ml 01/25/24 16:20 01/25/24 16:20 Iopamidol-370 (76%);100ml Bottle IV 01/25/24 16:21 160 ml ONCE ONE Administration Lidocaine/Epinephrine 20 ml 01/25/24 17:03 01/25/24 17:14 Lidocaine 1% W/Epi 1:100,000 20ml Vial SQ 01/25/24 17:04 20 ml ONCE ONE Administration Sodium Chloride 10 ml 01/25/24 16:19 01/25/24 16:20 Sodium Chloride 0.9% 10ml Syr (Rad Only) IV 01/25/24 16:20 10 ml ONCE ONE Administration Sodium Chloride 100 ml 01/25/24 16:19 01/25/24 16:20 0.9 % Sodium Chloride 50 Ml Vial IV 01/25/24 16:20 100 ml ONCE ONE Administration Tetanus/Reduced Diphtheria/Acell Pertussis 0.5 ml 01/25/24 17:03 01/25/24 17:16 Tet/Diphth/Pert-Adult 0.5ml Syringe IM 01/25/24 17:04 0.5 ml .ONCE ONE Administration ORDERS Category Date Time Status CT angio abdomen pelvis Stat Cat Scan 01/25/24 14:[address] angio chest - dissection Stat Cat Scan 01/25/24 14:[address] angio head Stat Cat Scan 01/25/24 14:[address] angio neck Stat Cat Scan 01/25/24 14:[address] bony pelvis Stat Cat Scan 01/25/24 14:[address] cervical spine wo con Stat Cat Scan 01/25/24 14:[address] facial bones wo con Stat Cat Scan 01/25/24 14:[address] head/brain wo con Stat Cat Scan 01/25/24 14:[address] lumbar spine wo con Stat Cat Scan 01/25/24 14:[address] thoracic spine wo con Stat Cat Scan 01/25/24 14:51 Completed CBC w/Auto Diff [Complete Blood Count Auto Diff] Stat Lab 01/25/24 14:34 Completed CMP [Comprehensive Metabolic Panel] Stat Lab 01/25/24 14:34 Completed INR [Prothrombin Time INR] Stat Lab 01/25/24 14:34 Completed Medical Decision Narrative: In summary patient is a 74-year-old male who presents to the emergency department for evaluation of a witnessed ground-level fall. Patient is hemodynamically stable upon arrival, febrile. Physical exam is remarkable for a very large stellate complex laceration to the forehead without any palpable bony deformity. Patient has no C-spine tenderness no palpable bony deformity anywhere else no evidence of trauma anywhere else. Patient has no dorsal spine tenderness Bora Coma Score is 15 and he is awake alert and oriented to person place and circumstance currently. Differential diagnosis includes skull fracture versus intracranial bleed versus C-spine or spine injury. Initial workup will be conducted with trauma scans hematologic labs.. Initial interventions include Tylenol crystalloid bolus. Initial workup reviewed by me reassuringly show that his hematologic labs are nonactionable and my informal interpretation of his imaging shows no acute bony injury and CT scan of the head shows no acute intracranial abnormalities. Given this his scalp laceration was closed primarily with 26 5.0 nylon stitches. Patient remains neurologically intact with no focal deficits and is appropriate for discharge with strict return precautions and instructions on wound care. Stitches to come out in 5 to 7 days. I was consulted by the AH, and we discussed the complexity of the problems being addressed.I approved the treatment and management plan for this patient?s care in the Emergency Department, thus performing a substantive portion of the medical decision making.Signed, Dakota Colón MD Procedures <EDNA Ca - Last Filed: 01/25/24 20:17> Laceration Laceration 1: Site: other (Forehead) Side (If applicable): right Size (cm): 12 Description: irregular Depth: involves subcutaneous layer Local Anesthetic: lidocaine 1% and with epi Amount of anesthesia used (mL): 20 Pre-repair: wound explored, irrigated extensively and deep structures intact Skin layer closed with: nylon Size (cm): 5-0 Number of sutures: 26 Technique: simple, interrupted Subcutaneous layer closed with: other (Monocryl) Size: 6-0 Number of sutures: 6 Technique: simple, interrupted Critical Care <EDNA Ca - Last Filed: 01/25/24 20:17> Critical Care Time Critical Care Time: No
--- NOTE | 2024-01-25 14:51 | CT_ITS ---
PROCEDURE INFORMATION: Exam: CTA Neck With Contrast Exam date and time: 01/25/2024 4:16 PM Age: 74 years old Clinical indication: Injury or trauma; Additional info: Trauma, critical injury suspected TECHNIQUE: Imaging protocol: Computed tomographic angiography of the neck with contrast. Exam focused on the cervical segments of the vasculature. 3D rendering (Not supervised by radiologist): MIP and/or 3D reconstructed images were created by the technologist. Radiation optimization: All CT scans at this facility use at least one of these dose optimization techniques: automated exposure control; mA and/or kV adjustment per patient size (includes targeted exams where dose is matched to clinical indication); or iterative reconstruction. Contrast material: ISOVUE 370; Contrast volume: 80 ml; Contrast route: INTRAVENOUS (IV); COMPARISON: CT CERVICAL SPINE WO CON 01/25/2024 4:06 PM FINDINGS: Right common carotid artery: No stenosis. No dissection or occlusion. Right internal carotid artery: Mild atherosclerotic disease involving the proximal right internal carotid artery. Right external carotid artery: Mild atherosclerotic disease involving the proximal right external carotid artery. Left common carotid artery: No stenosis. No dissection or occlusion. Left internal carotid artery: Mild atherosclerotic disease involving the origin of the left internal carotid artery with approximately 30-35% stenosis. Left external carotid artery: No occlusion or stenosis of the origin. Right vertebral artery: No stenosis. No dissection or occlusion. Left vertebral artery: No stenosis. No dissection or occlusion. Aorta: Slight ectasia of the ascending aorta. Soft tissues: Normal. No significant soft tissue swelling. Bones/joints: No acute fracture. IMPRESSION: No evidence of a hemodynamically significant stenosis or large vessel occlusion/transsection. No evidence of a vascular injury. REFERENCES: NASCET CRITERIA. The degree of stenosis in the cervical segment of the internal carotid artery is based on NASCET criteria. Normal is no stenosis. Mild is less than 50% stenosis. Moderate is 50-69% stenosis. Severe is 70% to 99% stenosis. Total occlusion is no detectable patent lumen.
--- NOTE | 2024-01-25 14:51 | CT_ITS ---
PROCEDURE INFORMATION: Exam: CT Lumbar Spine Without Contrast Exam date and time: 01/25/2024 4:10 PM Age: 74 years old Clinical indication: Injury or trauma; Additional info: Trauma, critical injury suspected TECHNIQUE: Imaging protocol: Computed tomography of the lumbar spine without contrast. Radiation optimization: All CT scans at this facility use at least one of these dose optimization techniques: automated exposure control; mA and/or kV adjustment per patient size (includes targeted exams where dose is matched to clinical indication); or iterative reconstruction. COMPARISON: CT THORACIC SPINE WO CON 01/25/2024 4:08 PM FINDINGS: Bones/joints: There is normal anatomic alignment of the lumbar spine. There has been a previous posterior bipedicular fusion of T12, L2, L3 and L4. The lumbar spinal fusion skips the L1 vertebral level which is fractured. There are disc spacers at L3-L4 and L4-L5. There are old orthopedic hardware bipedicular tracts at L5 and S1 but the hardware has been removed. There are right laminotomy defects at L4-L5 and L5-S1. No acute osseous lesions identified. Soft tissues: The paraspinal soft tissues are unremarkable. IMPRESSION: No CT evidence of an acute lumbar spine abnormality. Chronic changes as above.
--- NOTE | 2024-01-25 14:51 | CT_ITS ---
PROCEDURE INFORMATION: Exam: CT Thoracic Spine Without Contrast Exam date and time: 01/25/2024 4:08 PM Age: 74 years old Clinical indication: Injury or trauma; Additional info: Trauma, critical injury suspected TECHNIQUE: Imaging protocol: Computed tomography of the thoracic spine without contrast. Radiation optimization: All CT scans at this facility use at least one of these dose optimization techniques: automated exposure control; mA and/or kV adjustment per patient size (includes targeted exams where dose is matched to clinical indication); or iterative reconstruction. COMPARISON: 1. CT CERVICAL SPINE WO CON 01/25/2024 4:[address] ANGIO CHEST 12/31/2023 3:48 PM FINDINGS: Bones/joints: There is stable anatomic alignment of the thoracic spine. No acute fractures identified. There is a Schmorl's node along the superior endplate of T5. There are stable multilevel chronic degenerative changes throughout the lower cervical spine and throughout the thoracic spine. There is a partially imaged posterior spinal fusion spanning T11-L4. Soft tissues: Unremarkable. IMPRESSION: Multilevel chronic degenerative changes throughout the thoracic spine but no evidence of an acute fracture.
--- NOTE | 2024-01-25 14:51 | CT_ITS ---
PROCEDURE INFORMATION: Exam: CTA Chest With Contrast Exam date and time: 01/25/2024 4:19 PM Age: 74 years old Clinical indication: Injury or trauma; Additional info: Trauma, critical injury suspected TECHNIQUE: Imaging protocol: Computed tomographic angiography of the chest with contrast. Exam focused on the arteries. 3D rendering (Not supervised by radiologist): MIP and/or 3D reconstructed images were created by the technologist. Radiation optimization: All CT scans at this facility use at least one of these dose optimization techniques: automated exposure control; mA and/or kV adjustment per patient size (includes targeted exams where dose is matched to clinical indication); or iterative reconstruction. Contrast material: ISOVUE 370; Contrast volume: 80 ml; Contrast route: INTRAVENOUS (IV); COMPARISON: CT ANGIO CHEST 12/31/2023 3:48 PM FINDINGS: Pulmonary arteries: No visible PE. Aorta: The thoracic aorta is normal. Lungs: The chest is hypoventilatory but clear. Pleural spaces: Unremarkable. No pneumothorax. No pleural effusion. Heart: No pericardial effusion. Coronary arteries: Extensive calcified coronary artery disease. Lymph nodes: Unremarkable. No enlarged lymph nodes. Bones/joints: Chronic degenerative changes at each shoulder. No acute osseous lesions. Soft tissues: Unremarkable. IMPRESSION: 1. No visible PE. 2. Clear lungs. 3. Extensive calcified coronary artery disease.
--- NOTE | 2024-01-25 14:51 | CT_ITS ---
PROCEDURE INFORMATION: Exam: CTA Abdomen and Pelvis With Contrast Exam date and time: 01/25/2024 4:19 PM Age: 74 years old Clinical indication: Injury or trauma; Additional info: Trauma, critical injury suspected TECHNIQUE: Imaging protocol: Computed tomographic angiography of the abdomen and pelvis with contrast. Exam focused on the arteries. 3D rendering (Not supervised by radiologist): MIP and/or 3D reconstructed images were created by the technologist. Radiation optimization: All CT scans at this facility use at least one of these dose optimization techniques: automated exposure control; mA and/or kV adjustment per patient size (includes targeted exams where dose is matched to clinical indication); or iterative reconstruction. Contrast material: ISOVUE 370; Contrast volume: 80 ml; Contrast route: INTRAVENOUS (IV); COMPARISON: CT BONY PELVIS 01/25/2024 4:13 PM FINDINGS: Aorta: No aortic aneurysm. No aortic dissection. Celiac trunk and mesenteric arteries: No occlusion or significant stenosis. Renal arteries: No occlusion or significant stenosis. Right iliac arteries: No occlusion or significant stenosis. Left iliac arteries: No occlusion or significant stenosis. Liver: The liver is normal in appearance. No focal liver mass or intrahepatic biliary dilatation. Gallbladder and biliary ducts: Cholecystectomy. Pancreas: The pancreas is normal in appearance. No evidence of pancreatic ductal dilatation. Spleen: The spleen is normal in appearance. Adrenal glands: The adrenal glands are normal in appearance. Kidneys and ureters: No evidence of hydronephrosis or a traumatic renal injury. There are simple appearing bilateral renal cysts. The largest cyst is on the left and measures about 11.1 cm. The kidneys are excreting contrast. Stomach and bowel: The small bowel loops are not thickened and are nondilated. There is colonic diverticulosis but no evidence of diverticulitis. Appendix: The appendix is normal in appearance. No evidence of appendicitis. Intraperitoneal space: Unremarkable. No free air. No significant fluid collection. Lymph nodes: Unremarkable. No enlarged lymph nodes. Urinary bladder: The urinary bladder is normal in appearance. There is a small volume of the excreted contrast within the bladder. Reproductive: Prostatomegaly. Bones/joints: No acute osseous lesions. There is a posterior spinal fusion spanning T11-L4. Soft tissues: Unremarkable. IMPRESSION: 1. No CT evidence of acute pathology in the abdomen or pelvis. 2. Extensive colonic diverticulosis but no evidence of diverticulitis. 3. Prostatomegaly.
--- NOTE | 2024-01-25 14:51 | CT_ITS ---
PROCEDURE INFORMATION: Exam: CT Cervical Spine Without Contrast Exam date and time: 01/25/2024 4:06 PM Age: 74 years old Clinical indication: Injury or trauma; Fall; Additional info: Trauma, critical injury suspected TECHNIQUE: Imaging protocol: Computed tomography of the cervical spine without contrast. Radiation optimization: All CT scans at this facility use at least one of these dose optimization techniques: automated exposure control; mA and/or kV adjustment per patient size (includes targeted exams where dose is matched to clinical indication); or iterative reconstruction. COMPARISON: MR CERVICAL SPINE WO CON 11/17/2018 3:33 PM FINDINGS: Bones: There is normal anatomic alignment of the cervical spine. Evidence of a fracture or destructive bone lesion. There is a nonsurgical chronic degenerative fusion of the C3 and C4 vertebral bodies. There are multilevel chronic degenerative changes throughout the cervical spine. No acute fractures identified. Paranasal sinuses: There is mild chronic right maxillary sinusitis. No air-fluid levels. Lungs: Lung apices are normal. Vasculature: Coarse calcifications of the carotid bulbs bilaterally. Soft tissues: Unremarkable. IMPRESSION: Multilevel chronic degenerative changes throughout the cervical spine without fracture.
--- NOTE | 2024-01-25 14:51 | CT_ITS ---
PROCEDURE INFORMATION: Exam: CT Head Without Contrast Exam date and time: 01/25/2024 4:02 PM Age: 74 years old Clinical indication: Injury or trauma; Fall; Additional info: Trauma, critical injury suspected TECHNIQUE: Imaging protocol: Computed tomography of the head without contrast. Radiation optimization: All CT scans at this facility use at least one of these dose optimization techniques: automated exposure control; mA and/or kV adjustment per patient size (includes targeted exams where dose is matched to clinical indication); or iterative reconstruction. COMPARISON: MR HEAD/BRAIN WO CON 01/29/2021 8:10 AM FINDINGS: Brain: Extensive small-vessel ischemic changes and atrophy, stable since the MRI. No intracranial hemorrhage. No midline shift. Cerebral ventricles: No ventriculomegaly. Paranasal sinuses: Visualized sinuses are unremarkable. No fluid levels. Mastoid air cells: Visualized mastoid air cells are well aerated. Bones: Unremarkable. No acute fracture. Soft tissues: Right frontal scalp hematoma. IMPRESSION: 1. Scalp injury. 2. No acute intracranial hemorrhage. Extensive age-related atrophic and small vessel ischemic changes.
--- NOTE | 2024-01-25 14:51 | CT_ITS ---
PROCEDURE INFORMATION: Exam: CTA Head With Contrast, Arteriography Exam date and time: 01/25/2024 4:16 PM Age: 74 years old Clinical indication: Injury or trauma; Additional info: Trauma, critical injury suspected TECHNIQUE: Imaging protocol: Computed tomographic angiography of the head with contrast. Exam focused on the arteries. 3D rendering (Not supervised by radiologist): MIP and/or 3D reconstructed images were created by the technologist. Radiation optimization: All CT scans at this facility use at least one of these dose optimization techniques: automated exposure control; mA and/or kV adjustment per patient size (includes targeted exams where dose is matched to clinical indication); or iterative reconstruction. Contrast material: ISOVUE 370; Contrast volume: 80 ml; Contrast route: INTRAVENOUS (IV); COMPARISON: CT HEAD/BRAIN WO CON 01/25/2024 4:02 PM FINDINGS: ANTERIOR CIRCULATION: Right internal carotid artery: Atherosclerotic disease involving the distal right internal carotid artery without hemodynamically significant stenosis. Right middle cerebral artery: No occlusion or significant stenosis. No aneurysm. Right anterior cerebral artery: No occlusion or significant stenosis. No aneurysm. Left internal carotid artery: Atherosclerotic disease without hemodynamically significant stenosis involving the left internal carotid artery distally. Left middle cerebral artery: No occlusion or significant stenosis. No aneurysm. Left anterior cerebral artery: No occlusion or significant stenosis. No aneurysm. POSTERIOR CIRCULATION: Right vertebral artery: Atherosclerotic disease with wall calcification and 30-50% stenosis of the distal right vertebral artery. Left vertebral artery: Atherosclerotic disease with calcification of less than 50% stenotic distal left vertebral artery. Basilar artery: No occlusion or significant stenosis. No aneurysm. Right posterior cerebral artery: No occlusion or significant stenosis. No aneurysm. Left posterior cerebral artery: No occlusion or significant stenosis. No aneurysm. Brain: Please see the head CT report. This is unavailable. Evaluation for hemorrhage is limited on this post contrast only study. Cerebral ventricles: No ventriculomegaly. Bones/joints: Unremarkable. No acute fracture. Soft tissues: Right frontal scalp hematoma. IMPRESSION: No evidence of a hemodynamically significant stenosis.
--- NOTE | 2024-01-25 14:52 | CT_ITS ---
PROCEDURE INFORMATION: Exam: CT Maxillofacial Without Contrast Exam date and time: 01/25/2024 4:04 PM Age: 74 years old Clinical indication: Injury or trauma; Additional info: Trauma, critical injury suspected TECHNIQUE: Imaging protocol: Computed tomography of the face without contrast. Radiation optimization: All CT scans at this facility use at least one of these dose optimization techniques: automated exposure control; mA and/or kV adjustment per patient size (includes targeted exams where dose is matched to clinical indication); or iterative reconstruction. COMPARISON: 1. CT HEAD/BRAIN WO CON 01/25/2024 4:02 PM 2. MR HEAD/BRAIN WO CON 01/29/2021 8:10 AM 3. MR CERVICAL SPINE WO CON 11/17/2018 3:33 PM FINDINGS: Paranasal sinuses: No air-fluid levels. Orbital cavities: Orbits are normal. Globes are unremarkable. Bones: There is a deep laceration and significant soft tissue swelling over the right frontal calvarium with soft tissue swelling extending along the right preseptal region. Soft tissues: See Bones finding. IMPRESSION: Soft tissue swelling over the right frontal calvarium without underlying acute osseous injury identified.
--- NOTE | 2024-01-25 14:52 | CT_ITS ---
PROCEDURE INFORMATION: Exam: CT Pelvis Without Contrast, Skeleton Exam date and time: 01/25/2024 4:13 PM Age: 74 years old Clinical indication: Injury or trauma; Additional info: Trauma, critical injury suspected TECHNIQUE: Imaging protocol: Computed tomography of the pelvis without contrast. Exam focused on the skeleton. Radiation optimization: All CT scans at this facility use at least one of these dose optimization techniques: automated exposure control; mA and/or kV adjustment per patient size (includes targeted exams where dose is matched to clinical indication); or iterative reconstruction. COMPARISON: CT LUMBAR SPINE WO CON 01/25/2024 4:10 PM FINDINGS: Intestine: Colonic diverticulosis but no evidence of diverticulitis. Reproductive: Prostatomegaly. Urinary bladder: The urinary bladder is unremarkable. Bones/joints: Mild chronic degenerative changes to both hips. No acute osseous lesions identified. Soft tissues: Unremarkable. IMPRESSION: No CT evidence of acute pelvic pathology.
[2024-01-25 14:57] VITALS: BP 131/65; PULSE 62; RESP 18; TEMP 36.8; O2SAT 98; BMI 34.9
--- NOTE | 2024-01-25 14:59 | ECG_ITS ---
APPROVED REPORT Exam: Resting ECG HR:62 bpm ECG Measurements Heart Rate 62 AXES IL 189 P 52 QRSd 102 QRS 4 QT 446 T 65 QTc 452 Conclusion SINUS RHYTHM NORMAL ECG Electronically signed by : LINDA CRANE, 01/25/2024 22:37:10
[2024-01-25 15:00] VITALS: BP 131/65; PULSE 65; RESP 16; O2SAT 95
[2024-01-25] MEDS: 0.9 % SODIUM CHLORIDE 1000ML 1,000 ML 999 ML IV (15:04)
[2024-01-25] MEDS: ACETAMINOPHEN 1,000MG/100ML VIAL 1000 MG IV (15:04)
[2024-01-25 15:10] LABS: Basophils # 0.1 K/mm3 (0-0.2); Basophils % 0.9 % (0.1-2.0); Eosinophils # 0.2 K/mm3 (0.0-0.4); Eosinophils % 2.2 % (0.1-12.0); Hematocrit 42.1 % (42.0-52.0); Hemoglobin 13.9 g/dL (14.1-18.0); Lymphocytes # 2.2 K/mm3 (0.7-4.5); Lymphocytes % 25.7 % (10-50); Mean Corpuscular Hemoglobin 30.3 pg (27.0-31.2); Mean Corpuscular Volume 91.6 fl (80-94); Mean Platelet Volume 8.5 fl (7.4-10.4); Monocytes # 0.6 K/mm3 (0.1-1.0); Monocytes % 6.9 % (1.7-9.3); Neutrophils # 5.5 K/mm3 (1.8-7.8); Neutrophils % 64.2 % (37.0-80.0); Platelet Count 288 K/mm3 (142-424); Red Blood Count 4.59 M/mm3 (4.60-6.20); Red Cell Distribution Width 13.9 % (11.5-17.5); White Blood Count 8.5 K/mm3 (4.8-10.8)
[2024-01-25 15:16] LABS: INR 1.03 (0.9-1.1); Prothrombin Time 11.5 seconds (10.1-12.5)
--- OUTSIDE RECORDS SUMMARY | 2024-01-25 15:17 | XMS_ITS | Referral Summary ---
Author Organization [facility] [employer] Address [address] [place] [address] Care Team Providers Care Evening Sitter Name Role Phone Unavailable Primary Care Provider Unavailabl e Social History Tobacco Use Types Packs/Day Years Used Date Smoking Tobacco: Never Assessed Sex and Gender Information Value Date Recorded Sex Assigned at Not on file Legal Sex Male 1:22 PM CDT Gender Identity Not on file Sexual Orientation Not on file Plan of Treatment Not on file
--- OUTSIDE RECORDS SUMMARY | 2024-01-25 15:17 | XMS_ITS ---
Author Organization [facility] Address [address] [place] [address] [address] [place] [id number] Care Team Providers Care Stock Broker Supervisor Name Role Phone Adrian Gaming Unavailable [phone] REASON FOR VISIT Refills MEDICATIONS Medication SIG (Take, Route, Fr equency, Duration) Notes Start Date End Date Status Tamsulosin HCl 0.4 MG 1 capsule Orally O nce a day for 90 days Active Encounters Encounter Location Date Provider Diagnosis [place] [address] [place] [address] [address] [facility] [address] [place] [id number] 01/03/2024 Adrian Gaming Benign prostatic hyperplasia, unspecified whether lower urinary tract symptoms present N40.0 ASSESSMENTS Encounter Date Diagnosis Assessment Notes Treatment Notes Treatment Clinical Notes 01/03/2024 Benign prostatic hyperplasia, unspecified whether lower urinary tract symptoms present (ICD-10 - N40.0) PLAN OF TREATMENT Medication Medication Name Sig Start Date Stop Date Notes Tamsulosin HCl 0.4 MG 1 capsule Orally O nce a day for 90 days Next Appt Details Provider Name:Adrian garcia, 02/21/2024 10:30:00 AM, [address] [facility] [address] [facility], [address], [place], [id number],
--- OUTSIDE RECORDS SUMMARY | 2024-01-25 15:17 | XMS_ITS ---
Author Organization [facility] Address [address] [facility] [address] [facility] [address] [place] [id number] Care Team Providers Care Informatics Pharmacist Name Role Phone Adrian Gaming Unavailable [phone] REASON FOR VISIT Refills MEDICATIONS Medication SIG (Take, Route, Fr equency, Duration) Notes Start Date End Date Status Memantine HCl 10 MG 1 tablet Orally Two times a day for 90 days Active glipiZIDE ER 5 MG 1 tablet with food O rally Once a day for 90 days Active Encounters Encounter Location Date Provider Diagnosis [place] [address] [facility] [address] [facility] [address] [place] [id number] 01/12/2024 Adrian Gaming Type 2 diabetes mellitus without complication, without long-term current use of insulin E11.9 and Dementia without behavioral disturbance, psychotic disturbance, mood disturbance, or anxiety, unspecified dementia severity, unspecified dementia type F03.90 ASSESSMENTS Encounter Date Diagnosis Assessment Notes Treatment Notes Treatment Clinical Notes 01/12/2024 Type 2 diabetes mellitus without complication, without long-term current use of insulin (ICD-10 - E11.9) 01/12/2024 Dementia without behavioral disturbance, psychotic disturbance, mood disturbance, or anxiety, unspecified dementia severity, unspecified dementia type (ICD-10 - F03.90) PLAN OF TREATMENT Medication Medication Name Sig Start Date Stop Date Notes Memantine HCl 10 MG 1 tablet Orally Two times a day for 90 days glipiZIDE ER 5 MG 1 tablet with food O rally Once a day for 90 days Next Appt Details Provider Name:Adrian garcia, 02/21/2024 10:30:00 AM, [facility] [address] [facility], [address], [place], [phone],
--- OUTSIDE RECORDS SUMMARY | 2024-01-25 15:17 | XMS_ITS ---
Author Organization [facility] Address [address] [facility] [address] [facility] [address] [place] [id number] Care Team Providers Care Handyman Name Role Phone Adrian Gaming Unavailable [phone] Marilyn Gomez Unavailable [phone] ALLERGIES No Known Allergies RESULTS Component Value Reference Range Notes Influenza Screen (in house) Reviewed date:01/17/2024 03:47:03 PM Interpretation:neg Performing Lab: Notes/Report: neg results neg Rapid Strep- Inhouse Reviewed date:01/17/2024 03:45:55 PM Interpretation:neg Performing Lab: Notes/Report: neg strep test neg CBC Fingerstick (in house) Reviewed date:01/17/2024 03:45:32 PM Interpretation: Performing Lab: Notes/Report: wbc 7.5 3.5 - 10 lym 29.5 15 - 50 mid 7.4 2 - 15 gran 63.1 35 - 80 rbc 4.90 3.5 - 5.5 hgb 14.3 11.5 - 16.5 hct 44.6 35 - 55 mcv 91.0 75 - 100 mch 29.2 25 - 35 mchc 32.1 31 - 38 plat 222 100 - 400 Covid test (in house) Reviewed date:01/17/2024 03:45:44 PM Interpretation:neg Performing Lab: Notes/Report: neg Result: neg REASON FOR VISIT cough and congestion MEDICATIONS Medication SIG (Take, Route, Frequency, Duration) Notes Start Date End Date Status Donepezil HCl 10 MG 1 tablet at bedtime Orally Once a day for 30 day(s) Active amLODIPine Besylate 10 MG 1 tablet Orall y Once a day Active Lisinopril 40 MG 1 tablet Orally Once a day Active Aspirin 81 MG 1 tablet Orally Once a day Active Tamsulosin HCl 0.4 MG 1 capsule Orally O nce a day for 90 days Active Baclofen 10 MG 1 tablet as needed O rally Twice a day Active Atorvastatin Calcium 40 MG 1 tablet Oral ly Once a day for 30 day(s) Active Escitalopram Oxalate 20 MG 1 tablet Oral ly Once a day for 30 day(s) Active Chlorthalidone 15 MG 1 tablet in the mor estephanie with food Orally for 30 day(s) Active Carvedilol 3.125 MG 1 tablet with food O rally Twice a day for 30 day(s) Active glipiZIDE ER 5 MG 1 tablet with food O rally Once a day for 90 days Active Memantine HCl 10 MG 1 tablet Orally Two times a day for 90 days Active VITAL SIGNS Weight 233.6 lbs 01/17/2024 Blood pressure systolic 120 mm Hg 01/17/20 24 Blood pressure diastolic 60 mm Hg 024 Heart Rate 66 /min 01/17/2024 Encounters Encounter Location Date Provider Diagnosis [facility] [address] [place], [place] [id number] 01/17/2024 Marilyn Gomez Encounter for immunization Z23 and URI (upper respiratory infection) J06.9 ASSESSMENTS Encounter Date Diagnosis Assessment Notes Treatment Notes Treatment Clinical Notes 01/17/2024 Encounter for immunization (ICD-10 - Z23) 01/17/2024 URI (upper respiratory infection) (ICD-10 - J06.9) fluids, rest, supportive measures for fever/symptom relief PLAN OF TREATMENT Treatment Notes Assessment Notes URI (upper respiratory infection) fluids , rest, supportive measures for fever/symptom relief Next Appt Details Follow Up: prn, Reason: Provider Name:Adrian garcia, 02/21/2024 10:30:00 AM, [address] [facility] [address] [facility], [address], [place], [place], [phone], MEDICATIONS ADMINISTERED Medication Instructions Date of Administration Dosage Notes Dexamethasone 01/17/2024 1 mL Progress Notes * Examination Category Sub-Category Detail Notes ENT/Respiratory Oral cavity : no erythema or e xudate seen on pharynx Ears: auditory canals norm al bilaterally tympanic membranes normal bilaterally Neck : supple no cervical l ymphadenopathy Heart : RRR Lungs: CTAB A&P General Appearance: well nourished and h ydrated NAD alert; sniffling Nose : sniffles Eyes: sclera and conjuncti va clear History and Physical Notes * HPI (History of Present Illness) Category Sub-Category Detail Notes ENT/respiratory sore throat ear pain Short of Breath Chest Pain cough post nasal drainage headache rhinorrhea nasal congestion smoking body aches
--- OUTSIDE RECORDS SUMMARY | 2024-01-25 15:17 | XMS_ITS | Encounter Summary ---
Author Organization [employer] Address [address] [place] [address] Care Team Providers Care Construction Cost Estimator Name Role Phone Unavailable Primary Care Provider Unavailabl e Encounter Details Date Type Department Care Team (Late st Contact Info) Description 03/07/2018 Transcribed Document [facility] Family Medicine [address] [place] [address] ProviderSarah MD [address] [place] [id number] Social History Tobacco Use Types Packs/Day Years Used Date Smoking Tobacco: Never Assessed Sex and Gender Information Value Date Recorded Sex Assigned at Not on file Legal Sex Male 1:22 PM CDT Gender Identity Not on file Sexual Orientation Not on file documented as of this encounter Miscellaneous Notes * Cerner Conversion Note - Sarah ProviderMD - 03/07/2018 10:12 AM DISPATCHER [employer] [address] [place] [address] Patient Copy Patient Information: Name: APOLONIA FERNANDEZ V Current Date: 03/07/2018 10:12:49 : 1950 Patient Address: [address] [place] [address] [place] [address] Patient Attending Physician: PENNY LA MD-PREM Primary Care Provider: TENZIN RICARDO MD-[facility] Primary Care Provider Discharge Diagnosis: Weight on Admission: 261 lb, 0 oz Comment: Follow-up Instructions: With: Address: When: [place] [address] [place] [address], [address] [place] [phone] Business (1) 10:15 AM Discharge Instructions: Diet after Discharge: Resume usual diet as tolerated Activity after Discharge: Rest and relax today, No strenuous activities, Other: see post radial sheet for activity restriction Driving after Discharge: Do not drive, Other: for 24 hours Showering/Bathing:Other: May shower in 24 hours. No tub bathing, soaking, or swimming for 3-5 days Wound/Incision Care after Discharge: Keep operative site/wound site clean and dry, Other: Remove dressing in 24 hours Immunizations Documented During Stay: No Immunizations Found Special Instructions: Monitor site for bleeding. If bleeding occurs, apply manual pressure and call 911. Hold metformin for 48 hours Heart Failure Discharge Instructions (if any): Stroke Related Discharge Instructions (if any): Warfarin Related Discharge Instructions (if any): Final Medication List: Other Medications aspirin 81 Milligram(s) Oral Every Day. carvedilol 12.5 Milligram(s) Oral Two Times A Day. clopidogrel 75 Milligram(s) Oral Every Day. lisinopril 40 Milligram(s) Oral Every Day. metFORMIN 500 Milligram(s) Oral Two Times A Day. nitroglycerin (Nitrostat 0.4 mg sublingual tablet) 1 Tablet(s) SubLINgual every 5 minutes as needed as needed for chest pain. ranolazine (Ranexa 500 mg oral tablet, extended release) 1 Tablet(s) Oral Two Times A Day. rosuvastatin 40 Milligram(s) Oral At Bedtime. Patient Allergies: No Known Allergies Medication Instructions: Take your medications faithfully. Do NOT skip medication. Do NOT stop taking medications without the direction of a physician. Carry a list of your medications with you at all times, and take this medication list with you to your first follow up visit. Report any side effects. Avoid herbal remedies unless discussed with your physician. As part of your treatment plan, your physician may have prescribed a limited course of a controlled substance. This medication may be given to help people with moderate or severe pain or for other medical conditions, but there are risks involved with treatment. Common side effects may include nausea, constipation, drowsiness, sweating, itching, dry mouth, and rash. More serious side effects may include cognitive and motor impairment, like problems with thinking, concentrating, alertness, and movement (e.g. slowed reflexes), and driving and operating heavy machinery can be dangerous. It is important for you to talk to your physician if you have these side effects or questions. These controlled substances can produce physical dependence and be habit-forming if taken for an extended period of time, which means that the body has gotten used to them and may experience withdrawal symptoms if they are abruptly stopped. Withdrawal symptoms can include runny nose, sweating, goose bumps, diarrhea, abdominal cramping, rapid heartbeat, difficulty sleeping, and nervousness. Patient education materials: Angiogram, Care After Refer to this sheet in the next few weeks. These instructions provide you with information about caring for yourself after your procedure. Your health care provider may also give you more specific instructions. Your treatment has been planned according to current medical practices, but problems sometimes occur. Call your health care provider if you have any problems or questions after your procedure. What can I expect after the procedure? After your procedure, it is typical to have the following: ??? Bruising at the catheter insertion site that usually fades within 1?2 weeks. ??? Blood collecting in the tissue (hematoma) that may be painful to the touch. It should usually decrease in size and tenderness within 1?2 weeks. Follow these instructions at home: ??? Take medicines only as directed by your health care provider. ??? You may shower 24?48 hours after the procedure or as directed by your health care provider. Remove the bandage (dressing) and gently wash the site with plain soap and water. Pat the area dry with a clean towel. Do not rub the site, because this may cause bleeding. ??? Do nottake baths, swim, or use a hot tub until your health care provider approves. ??? Check your insertion site every day for redness, swelling, or drainage. ??? Do not apply powder or lotion to the site. ??? Do notlift over 10 lb (4.5 kg) for 5 days after your procedure or as directed by your health care provider. ??? Ask your health care provider when it is okay to: ? Return to work or school. ? Resume usual physical activities or sports. ? Resume sexual activity. ??? Do notdrive home if you are discharged the same day as the procedure. Have someone else drive you. ??? You may drive 24 hours after the procedure unless otherwise instructed by your health care provider. ??? Do notoperate machinery or power tools for 24 hours after the procedure or as directed by your health care provider. ??? If your procedure was done as an outpatient procedure, which means that you went home the same day as your procedure, a responsible adult should be with you for the first 24 hours after you arrive home. ??? Keep all follow-up visits as directed by your health care provider. This is important. Contact a health care provider if: ??? You have a fever. ??? You have chills. ??? You have increased bleeding from the catheter insertion site. Hold pressure on the site. Get help right away if: ??? You have unusual pain at the catheter insertion site. ??? You have redness, warmth, or swelling at the catheter insertion site. ??? You have drainage (other than a small amount of blood on the dressing) from the catheter insertion site. ??? The catheter insertion site is bleeding, and the bleeding does not stop after 30 minutes of holding steady pressure on the site. ??? The area near or just beyond the catheter insertion site becomes pale, cool, tingly, or numb. This information is not intended to replace advice given to you by your health care provider. Make sure you discuss any questions you have with your health care provider. Document Released: 09/03/2005 Document Revised: 07/23/2016 Document Reviewed: 07/19/2013 [email or web address] Interactive Patient Education ? 2017 [employer] Radial Site Care Introduction Refer to this sheet in the next few weeks. These instructions provide you with information about caring for yourself after your procedure. Your health care provider may also give you more specific instructions. Your treatment has been planned according to current medical practices, but problems sometimes occur. Call your health care provider if you have any problems or questions after your procedure. What can I expect after the procedure? After your procedure, it is typical to have the following: ??? Bruising at the radial site that usually fades within 1?2 weeks. ??? Blood collecting in the tissue (hematoma) that may be painful to the touch. It should usually decrease in size and tenderness within 1?2 weeks. Follow these instructions at home: ??? Take medicines only as directed by your health care provider. ??? You may shower 24?48 hours after the procedure or as directed by your health care provider. Remove the bandage (dressing) and gently wash the site with plain soap and water. Pat the area dry with a clean towel. Do not rub the site, because this may cause bleeding. ??? Do nottake baths, swim, or use a hot tub until your health care provider approves. ??? Check your insertion site every day for redness, swelling, or drainage. ??? Do notapply powder or lotion to the site. ??? Do notflex or bend the affected arm for 24 hours or as directed by your health care provider. ??? Do notpush or pull heavy objects with the affected arm for 24 hours or as directed by your health care provider. ??? Do notlift over 10 lb (4.5 kg) for 5 days after your procedure or as directed by your health care provider. ??? Ask your health care provider when it is okay to:? Return to work or school. ? Resume usual physical activities or sports. ? Resume sexual activity. ??? Do notdrive home if you are discharged the same day as the procedure. Have someone else drive you. ??? You may drive 24 hours after the procedure unless otherwise instructed by your health care provider. ??? Do notoperate machinery or power tools for 24 hours after the procedure. ??? If your procedure was done as an outpatient procedure, which means that you went home the same day as your procedure, a responsible adult should be with you for the first 24 hours after you arrive home. ??? Keep all follow-up visits as directed by your health care provider. This is important. Contact a health care provider if: ??? You have a fever. ??? You have chills. ??? You have increased bleeding from the radial site. Hold pressure on the site. Get help right away if: ??? You have unusual pain at the radial site. ??? You have redness, warmth, or swelling at the radial site. ??? You have drainage (other than a small amount of blood on the dressing) from the radial site. ??? The radial site is bleeding, and the bleeding does not stop after 30 minutes of holding steady pressure on the site. ??? Your arm or hand becomes pale, cool, tingly, or numb. This information is not intended to replace advice given to you by your health care provider. Make sure you discuss any questions you have with your health care provider. Document Released: 03/20/2011 Document Revised: 07/23/2016 Document Reviewed: 09/03/2014 ? 2017 [employer] Moderate Conscious Sedation, Adult, Care After These instructions provide you with information about caring for yourself after your procedure. Your health care provider may also give you more specific instructions. Your treatment has been planned according to current medical practices, but problems sometimes occur. Call your health care provider if you have any problems or questions after your procedure. What can I expect after the procedure? After your procedure, it is common: ??? To feel sleepy for several hours. ??? To feel clumsy and have poor balance for several hours. ??? To have poor judgment for several hours. ??? To vomit if you eat too soon. Follow these instructions at home: For at least 24 hours after the procedure: ??? Do not: ? Participate in activities where you could fall or become injured. ? Drive. ? Use heavy machinery. ? Drink alcohol. ? Take sleeping pills or medicines that cause drowsiness. ? Make important decisions or sign legal documents. ? Take care of children on your own. ??? Rest. Eating and drinking ??? Follow the diet recommended by your health care provider. ??? If you vomit: ? Drink water, juice, or soup when you can drink without vomiting. ? Make sure you have little or no nausea before eating solid foods. General instructions ??? Have a responsible adult stay with you until you are awake and alert. ??? Take kwdk-vps-uavbyds and prescription medicines only as told by your health care provider. ??? If you smoke, do not smoke without supervision. ??? Keep all follow-up visits as told by your health care provider. This is important. Contact a health care provider if: ??? You keep feeling nauseous or you keep vomiting. ??? You feel light-headed. ??? You develop a rash. ??? You have a fever. Get help right away if: ??? You have trouble breathing. This information is not intended to replace advice given to you by your health care provider. Make sure you discuss any questions you have with your health care provider. Document Released: 12/06/2013 Document Revised: 07/20/2016 Document Reviewed: 06/06/2016 [employer] Interactive Patient Education ? 2017 [employer] Medication Leaflets: ranolazine (ra CHARLENE nice) Ranexa What is the most important information I should know about ranolazine? You should not take ranolazine if you have cirrhosis of the liver. Serious drug interactions can occur when certain medicines are used together with ranolazine. Tell each of your healthcare providers about all medicines you use now, and any medicine you start or stop using. What is ranolazine? Ranolazine is an anti-anginal medication. It works by improving blood flow to help the heart work more efficiently. Ranolazine is used to treat chronic angina (chest pain). Ranolazine is not for use during an acute (emergency) attack of angina. Ranolazine may also be used for purposes not listed in this medication guide. What should I discuss with my health care provider before taking ranolazine? You should not take ranolazine if you are allergic to it, or if you have cirrhosis of the liver. Many other drugs can interact with ranolazine and should not be used at the same time. Your doctor may need to change your treatment plan if you use any of the following drugs: ? clarithromycin; ?? nefazodone; ?? [place]'s wort; ?? antifungal medicine--itraconazole, ketoconazole; ?? HIV or AIDS medicine--indinavir, lopinavir/ritonavir, nelfinavir, ritonavir, saquinavir; ?? tuberculosis medicine--rifabutin, rifampin, rifapentine; or ?? seizure medicine-carbamazepine, phenobarbital, phenytoin. To make sure ranolazine is safe for you, tell your doctor if you have: ? a heart rhythm disorder; ?? liver disease; ?? kidney disease; or ?? a personal or family history of long QT syndrome. It is not known whether this medicine will harm an unborn baby. Tell your doctor if you are or plan to become . It is not known whether ranolazine passes into breast milk or if it could harm a nursing baby. Tell your doctor if you are breast-feeding a baby. How should I take ranolazine? Follow all directions on your prescription label. Your doctor may occasionally change your dose to make sure you get the best results. Do not use this medicine in larger or smaller amounts or for longer than recommended. Ranolazine may be taken with or without food. Do not crush, chew, or break an extended-release tablet. Swallow it whole. Call your doctor if your symptoms do not improve, or if they get worse while using ranolazine. Chronic angina is often treated with a combination of drugs. Use all medications as directed by your doctor. Read the medication guide or patient instructions provided with each medication. Do not change your doses or medication schedule without your doctor's advice. Store at room temperature away from moisture and heat. What happens if I miss a dose? Take the missed dose as soon as you remember. Skip the missed dose if it is almost time for your next scheduled dose. Do not take extra medicine to make up the missed dose. What happens if I overdose? Seek emergency medical attention or call the Poison Help line at . Overdose can cause nausea, vomiting, numbness or tingling, dizziness, double vision, confusion, or fainting. What should I avoid while taking ranolazine? Ranolazine may impair your thinking or reactions. Be careful if you drive or do anything that requires you to be alert. Grapefruit and grapefruit juice may interact with ranolazine and lead to unwanted side effects. Discuss the use of grapefruit products with your doctor. What are the possible side effects of ranolazine? Get emergency medical help if you have signs of an allergic reaction: hives; difficult breathing; swelling of your face, lips, tongue, or throat. Call your doctor at once if you have: ? a light-headed feeling, like you might pass out; ?? headache with chest pain and severe dizziness, fast or pounding heartbeats; or ?? kidney problems--little or no urination, painful or difficult urination, swelling in your feet or ankles, feeling tired or short of breath. Common side effects may include: ? nausea, constipation; ?? headache; or ?? dizziness. This is not a complete list of side effects and others may occur. Call your doctor for medical advice about side effects. You may report side effects to FDA at 4-797-ZPR-2339. What other drugs will affect ranolazine? Many drugs can interact with ranolazine. Not all possible interactions are listed here. Tell your doctor about all your medications and any you start or stop using during treatment with ranolazine, especially: ? an antibiotic or antifungal medicine; ?? any other medicine to treat heart disease; ?? cholesterol-lowering medicine; ?? diabetes medication; ?? medicine to prevent organ transplant rejection; ?? medicine to treat a mental illness; or ?? medicine to treat or prevent nausea and vomiting caused by chemotherapy or radiation. This list is not complete and many other drugs can interact with ranolazine. This includes prescription and xuvn-wud-hhjthog medicines, vitamins, and herbal products. Give a list of all your medicines to any healthcare provider who treats you. Where can I get more information? Your pharmacist can provide more information about ranolazine. Remember, keep this and all other medicines out of the reach of children, never share your medicines with others, and use this medication only for the indication prescribed. Every effort has been made to ensure that the information provided by [employer]. ('[employer]') is accurate, up-to-date, and complete, but no guarantee is made to that effect. Drug information contained herein may be time sensitive. [employer] information has been compiled for use by healthcare practitioners and consumers in the [place] and therefore [employer] does not warrant that uses outside of the [place] are appropriate, unless specifically indicated otherwise. [employer]'s drug information does not endorse drugs, diagnose patients or recommend therapy. [employer] drug information is an informational resource designed to assist licensed healthcare practitioners in caring for their patients and/or to serve consumers viewing this service as a supplement to, and not a substitute for, the expertise, skill, knowledge and judgment of healthcare practitioners. The absence of a warning for a given drug or drug combination in no way should be construed to indicate that the drug or drug combination is safe, effective or appropriate for any given patient. [employer] does not assume any responsibility for any aspect of healthcare administered with the aid of information [employer] provides. The information contained herein is not intended to cover all possible uses, directions, precautions, warnings, drug interactions, allergic reactions, or adverse effects. If you have questions about the drugs you are taking, check with your doctor, nurse or pharmacist. Copyright 8792-8951 [facility]. Version: 12.30. Revision Date: 04/18/2015. CIGARETTE SMOKING: The facts are clear, cigarette smoking will shorten your life. Smoking can cause many illnesses along the way. As a healthcare provider, we recommend that you stop smoking. Assistance with quitting is available by contacting 3-819-ENDJ-NOW. This is a free resource providing counseling, support, and referral. Or you may contact your personal physician. STROKE is an EMERGENCY Every [employer] ACT F.A.S.T! FACE ?? Facial droop ?? Uneven smile ARM ?? Arm numbness ?? Arm weakness SPEECH ?? Slurred speech ?? Difficulty speaking or understanding TIME ?? Call 911 and get to the hospital immediately Have the ambulance go to the nearest stroke center. STROKE Risk Factors High blood pressure High cholesterol Heart Disease Diabetes Smoking Heavy alcohol use Physical inactivity and obesity Atrial Fibrillation (irregular heartbeat) Family history of stroke Reminder: Be sure to sign up for the [facility] patient portal, which gives you 21/09 access to your medical information ??? including these discharge instructions ??? using your computer, smartphone, or tablet. Just go to [employer] to get started. Questions? Call . [facility] would like to thank you for allowing us to assist you with your healthcare needs. CONSUELO Solano ROY V, (or assistance representative) have received the above patient education materials/instructions and have verbalized understanding: Patient Signature _ Date/Time Patient Private Mortgage Banker Safe Signature (if needed) Date/Time Clinician/Hospital Private Mortgage Banker Safe Signature (if needed) Date/Time Electronically signed by Elver, [facility] Conversion Jeweler Apprentice Cerner at 06/17/2022 7:29 PM CDT documented in this encounter Plan of Treatment Not on file documented as of this encounter Visit Diagnoses Not on filedocumented in this encounter
--- OUTSIDE RECORDS SUMMARY | 2024-01-25 15:17 | XMS_ITS | Encounter Summary ---
[facility] [address] [place] [address] Care Team Providers Care Cord Tire Builder Name Role Phone Macario Bell MD Primary Care Provider + Encounter Details Date Type Department Care Team (Late st Contact Info) Description 05/18/2016 Telephone [facility] [address] [facility] [address] [place] [address] Dina Thomson CMA Social History Tobacco Use Types Packs/Day Years Used Date Smoking Tobacco: Never Alcohol Use Standard Drinks/Week Comments Yes 0 (1 standard drink = 0.6 oz pur e alcohol) occasional Sex and Gender Information Value Date Recorded Sex Assigned at Not on file Legal Sex Male 11:48 AM EDT Gender Identity Not on file Sexual Orientation Not on file documented as of this encounter Miscellaneous Notes * Telephone Encounter - Dina Thomson CMA - 05/18/2016 1:58 PM EDT Pt called and said that he completed the 8 mg galantamine, and wanted to know if he can increase to16 mg daily (Pt already had refill for 16 mg daily) I informed him that he can go ahead and start the 16 mg since he is doing well, he verbalized understanding and call back if he has any adverse side effects. documented in this encounter Plan of Treatment Not on file documented as of this encounter Visit Diagnoses Not on filedocumented in this encounter Care Teams Cord Tire Builder Relationship Specialty Start Date End Date Macario Bell MD PCP - General Family Medicine 01/08/16 documented as of this encounter
--- OUTSIDE RECORDS SUMMARY | 2024-01-25 15:17 | XMS_ITS | Encounter Summary ---
Author Organization [employer] Address [address] [place] [address] Care Team Providers Care Jackscrew Worker Name Role Phone Unavailable Primary Care Provider Unavailabl e Encounter Details Date Type Department Care Team (Late st Contact Info) Description 03/07/2018 Historic Encounter [facility] [address] [place] [address] ProviderLachelle Historical Social History Tobacco Use Types Packs/Day Years Used Date Smoking Tobacco: Never Assessed Sex and Gender Information Value Date Recorded Sex Assigned at Not on file Legal Sex Male 1:22 PM CDT Gender Identity Not on file Sexual Orientation Not on file documented as of this encounter Plan of Treatment Not on file documented as of this encounter Procedures Procedure Name Priority Date/Time Associated Diagnosis Comments CHEM8+ POC Routine 03/07/2018 8:28 AM EST PLATELET COUNT Routine 03/07/2018 8:21 AM EST documented in this encounter Results * (ABNORMAL) Chem8+ POC (03/07/2018 8:28 AM EST) Sodium POC 142 138 - 146 mmol/L 03/07/2018 1:28 PM [facility] Potassium POC 4.6 3.5 - 4.9 mmol/L 03/07/2018 1:28 PM [facility] Chloride POC 104 98 - 109 mmol/L 03/07/2018 1:28 PM [facility] CO2 POC 27.0 24.0 - 29.0 mmol/L 03/07/2018 1:28 PM [facility] Anion Gap POC 17.0 10.0 - 20.0 mmol/L 03/07/2018 1:28 PM [facility] Ca Ionized POC 1.20 1.12 - 1.32 mmol/L 03/07/2018 1:28 PM [facility] Glucose POC 173(H) 70 - 105 mg/dL 03/07/2018 1:28 PM [facility] BUN POC 12 8 - 26 mg/dL 03/07/2018 1:28 PM [facility] Creatinine POC 0.8 0.6 - 1.3 mg/dL 03/07/2018 1:28 PM [facility] eGFR 116 >=60 mL/min/1. 73m2 03/09/2018 1:55 AM [facility] eGFR NonAfrican 96 >=60 mL/min/1. 73m2 03/09/2018 1:55 AM [facility] Hemoglobin POC 17.0 12.0 - 17.0 Gram/dL 03/07/2018 1:28 PM [facility] Hematocrit POC 50.0 38.0 - 51.0 % 03/07/2018 1:28 PM [facility] Barrel Reamer [id number] 03/07/2018 1:28 PM [facility] Device SN [id number] 03/07/2018 1:28 PM [facility] Blood 03/07/2018 8:28 AM EST 03/09/2018 1:55 AM EST Result [facility] Historical Provider POINT OF CARE TEST ORDE RABLES Final Result [facility] [address] [phone] * Platelet count (03/07/2018 8:21 AM EST) Platelet Count 288 163 - 369 K/uL 03/07/2018 1:36 PM EST Blood 03/07/2018 8:21 AM EST 03/07/2018 1:34 PM EST [facility] Provider LAB BLOOD ORDERABLES Fi nal Result [facility] [address] [phone] documented in this encounter Visit Diagnoses Not on filedocumented in this encounter
--- OUTSIDE RECORDS SUMMARY | 2024-01-25 15:17 | XMS_ITS | Patient Health Record ---
Author Organization [facility] Address [address] [facility] [address] [place] [id number] Care Team Providers Care Medical Claims Representative Name Role Phone Mekhi Adrian Unavailable [phone] Hayley Gomezine Unavailable [phone] ALLERGIES No Known Allergies RESULTS Component Value [...] Interpretation:neg Performing Lab: Notes/Report: neg Result: neg RUBINA Reviewed date:10/22/2023 11:52:15 AM Interpretation: Performing Lab: Notes/Report: REASON FOR REFERRAL Diagnosis 1 Coronary artery dise ase involving soboba heart without angina pectoris, unspecified vessel or lesion type (I25.10) [facility] Referring Provider First Name Adrian Referring Provider Last Name Mekhi Referring Provider Speciality Family Pra ctice Referred Provider Pablo Gutierrez Referred Provider Specialty Cardiovascul ar Disease General Notes Mariangel Mathew 10/28/19 24 11:47:21 AM > faxed to [facility] Cardiology Referral Priority Routine MEDICATIONS Medication SIG (Take, Route, Frequency, Duration) Notes Start Date End Date Status Baclofen 10 MG 1 tablet as needed O rally Twice a day Active Atorvastatin Calcium 40 MG 1 tablet Oral ly Once a day for 30 day(s) Active Escitalopram Oxalate 20 MG 1 tablet Oral ly Once a day for 30 day(s) Active Donepezil HCl 10 MG 1 tablet at bedtime Orally Once a day for 30 day(s) Active amLODIPine Besylate 10 MG 1 tablet Orall y Once a day Active Lisinopril 40 MG 1 tablet Orally Once a day Active Aspirin 81 MG 1 tablet Orally Once a day Active Tamsulosin HCl 0.4 MG 1 capsule Orally O nce a day for 90 days Active glipiZIDE ER 5 MG 1 tablet with food O rally Once a day for 90 days Active Chlorthalidone 15 MG 1 tablet in the mor estephanie with food Orally for 30 day(s) Active Memantine HCl 10 MG 1 tablet Orally Two times a day for 90 days Active Carvedilol 3.125 MG 1 tablet with food O rally Twice a day for 30 day(s) Active SOCIAL HISTORY Sex Assigned At : Social History Observation Description Sex Assigned At Unknown PROBLEMS Problem Type ICD Code Onset Dates Problem Status W/U Status Risk SNOMED Code Notes Problem Essential hypertension (I10) Active confirmed 86071228 Problem Other chronic pain (G89.29) Active confirmed 65093351 Problem Type 2 diabetes mellitus without complication, without long-term current use of insulin (E11.9) Active confirmed 070801795 Problem Coronary artery disease involving soboba heart without angina pectoris, unspecified vessel or lesion type (I25.10) Active confirmed 46603631 Problem Benign prostatic hyperplasia, unspecified whether lower urinary tract symptoms present (N40.0) Active confirmed 422053287 Problem Dementia without behavioral disturbance, psychotic disturbance, mood disturbance, or anxiety, unspecified dementia severity, unspecified dementia type (F03.90) Active confirmed 34385823 VITAL SIGNS Heart Rate 66 /min 01/17/2024 Blood pressure diastolic 60 mm Hg 01/17/2024 Blood pressure systolic 120 mm Hg 01/17/2024 Weight 233.6 lbs 01/17/2024 Encounters Encounter Location Date Provider Diagnosis [facility] [address] [place], [place] [id number] 10/28/2023 Adrian Manns Choice Type 2 diabetes mellitus without complication, without long-term current use of insulin E11.9 ; Essential hypertension I10 ; Coronary artery disease involving soboba heart without angina pectoris, unspecified vessel or lesion type I25.10 ; Benign prostatic hyperplasia, unspecified whether lower urinary tract symptoms present N40.0 ; Dementia without behavioral disturbance, psychotic disturbance, mood disturbance, or anxiety, unspecified dementia severity, unspecified dementia type F03.90 ; Other chronic pain G89.29 and Low back pain, unspecified M54.50 [facility] [address] [facility] [address] [facility] [address] [place], [place] [id number] 11/03/2023 Adrian Manns Choice [facility] [address] [facility] [address] [facility] [address] [place], [place] [id number] 11/18/2023 Adrian Manns Choice [facility] [address] [facility] [address] [place], [place] [id number] 12/13/2023 Adrian Manns Choice [facility] [address] [facility] [address] [facility] [address] [place], [place] [id number] 01/03/2024 Adrian Manns Choice Benign prostatic hyperplasia, unspecified whether lower urinary tract symptoms present N40.0 [facility] [address] [place], [place] [id number] 01/12/2024 Adrian Manns Choice Type 2 diabetes mellitus without complication, without long-term current use of insulin E11.9 and Dementia without behavioral disturbance, psychotic disturbance, mood disturbance, or anxiety, unspecified dementia severity, unspecified dementia type F03.90 [facility] [address] [facility] [address] [place], [place] [id number] 01/17/2024 Marilyn Gomez Encounter for immunization Z23 and URI (upper respiratory infection) J06.9 ASSESSMENTS Encounter Date Diagnosis Assessment Notes Treatment Notes Treatment Clinical Notes 10/28/2023 Type 2 diabetes mellitus without complication, without long-term current use of insulin (ICD-10 - E11.9) 10/28/2023 Essential hypertension (ICD-10 - I10) 01/03/2024 Benign prostatic hyperplasia, unspecified whether lower urinary tract symptoms present (ICD-10 - N40.0) 01/12/2024 Type 2 diabetes mellitus without complication, without long-term current use of insulin (ICD-10 - E11.9) 01/17/2024 URI (upper respiratory infection) (ICD-10 - J06.9) fluids, rest, supportive measures for fever/symptom relief 01/17/2024 Encounter for immunization (ICD-10 - Z23) 01/12/2024 Dementia without behavioral disturbance, psychotic disturbance, mood disturbance, or anxiety, unspecified dementia severity, unspecified dementia type (ICD-10 - F03.90) 10/28/2023 Coronary artery disease involving soboba heart without angina pectoris, unspecified vessel or lesion type (ICD-10 - I25.10) 10/28/2023 Benign prostatic hyperplasia, unspecified whether lower urinary tract symptoms present (ICD-10 - N40.0) 10/28/2023 Dementia without behavioral disturbance, psychotic disturbance, mood disturbance, or anxiety, unspecified dementia severity, unspecified dementia type (ICD-10 - F03.90) 10/28/2023 Other chronic pain (ICD-10 - G89.29) 10/28/2023 Low back pain, unspecified (ICD-10 - M54.50) symptomatic treatment of pain. Return if worsening of pain or developement of new symptoms PLAN OF TREATMENT Next Appt Details Provider Name:Adrian Lieberman , 02/21/2024 10:30:00 AM, [address] [facility], [address], [place], [place], [id number], Insurance Providers Payer Name Payer Address Payer Phone Subscriber Number Group Number Insured Name Patient Relationship to Insured Coverage Start Date Coverage End Date MEDICARE PART B [address] [address] [place] [id number] APOLONIA CORDERO Self - patient is the insured [facility] [employer] [address] [place] [address] [phone] [id number] APOLONIA CORDERO Self - patient is the insured MEDICATIONS ADMINISTERED Medication Instructions Date of Administration Dosage Notes Dexamethasone 01/17/2024 1 mL MEDICAL (GENERAL) HISTORY Medical History History ICD Code Hypertension Hyperlipidemia Diabetes Type 2 Dementia elevated PSA Surgical History Surgery Date(Month/Year) Bilateral Knee Replacement 2011 Back 2020 Cholecystectomy Cardiac Stent Placement RT Foot Prostate Biopsy 09/23/2023
--- OUTSIDE RECORDS SUMMARY | 2024-01-25 15:17 | XMS_ITS | Encounter Summary ---
Author Organization [employer] Address [address] [place] [address] Care Team Providers Care Crap Game Box Person Name Role Phone Unavailable Primary Care Provider Unavailabl e Encounter Details Date Type Department Care Team (Late st Contact Info) Description 03/07/2018 Transcribed Document [facility] [address] [place] [address] ProviderSarah MD [address] [place] [address] Social History Tobacco Use Types Packs/Day Years Used Date Smoking Tobacco: Never Assessed Sex and Gender Information Value Date Recorded Sex Assigned at Not on file Legal Sex Male 1:22 PM CDT Gender Identity Not on file Sexual Orientation Not on file documented as of this encounter Miscellaneous Notes * [employer]ner Conversion Note - Historical ProviderMD - 03/07/2018 10:00 AM ROUTE DELIVERY MANAGER Event Note Entered On: 03/07/2018 10:06 EST Performed On: 03/07/2018 10:00 EST by Yeni Shields, RN Event Note Description of Event : 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 Pt placed on monitor, call clifford within reach, family at BS. Yeni Shields, RN - 03/07/2018 10:05 EST Electronically signed by Kandice Raya Conversion Motor Vehicle Operator Road Supervisor Cerner at 06/17/2022 7:47 PM CDT documented in this encounter Plan of Treatment Not on file documented as of this encounter Visit Diagnoses Not on filedocumented in this encounter
--- OUTSIDE RECORDS SUMMARY | 2024-01-25 15:17 | XMS_ITS | Encounter Summary ---
Author Organization [employer] Address [address] [place] [address] Care Team Providers Care Licensed Physical Therapy Assistant Name Role Phone Unavailable Primary Care Provider Unavailabl e Encounter Details Date Type Department Care Team (Late st Contact Info) Description 03/07/2018 Transcribed Document [facility] [address] [place] [address] ProviderSarah MD [facility] [place], [place] [address] Social History Tobacco Use Types Packs/Day Years Used Date Smoking Tobacco: Never Assessed Sex and Gender Information Value Date Recorded Sex Assigned at Not on file Legal Sex Male 1:22 PM CDT Gender Identity Not on file Sexual Orientation Not on file documented as of this encounter Miscellaneous Notes * Cerner Conversion Note - Historical ProviderMD - 03/07/2018 8:29 AM MEDIA MANAGER Pre Procedure Adult Entered On: 03/07/2018 8:34 EST Performed On: 03/07/2018 8:29 EST by Yeni Shields RN Height and Weight, Clinical Dosing Height Source : Stated Height Entry Format : [place] Height, Feet : 5 ft(Converted to: 152 cm, 60 Inch) Height, Inches : 7 Inch(Converted to: 0 ft 7 Inch, 17.78 cm) Clinical Height : 170.18 cm Weight Source : Standing scale Weight Entry Format : [place] Clinical Dosing Weight : 118.64 kg Weight, Pounds : 261 lb Body Surface Area (BSA) : 2.27 m2 Body Mass Index : 41 kg/m2 (>HHI) [place] Body Weight : 65 kg Yeni Shields RN - 03/07/2018 8:29 EST Health Histories Smoking Status : Former smoker, quit more than 30 days ago Smokeless Tobacco Status : Never Yeni Shields RN - 03/07/2018 8:29 EST Social History (As Of: 03/07/2018 08:34:36 EST) Tobacco: Smoking Status Former smoker. Use in Last 12 Months: No. Years of Use: 20. Packs/Tins Daily: 1. Used Tobacco, but Quit Yes. Second Hand Smoke Exposure: Yes. No Smokeless Tobacco Use in Last 30 Days. None Smokeless Tobacco Use History. (Last Updated: 09/05/2015 12:11:30 EDT by Tsering Coreas, RN) Alcohol: Alcohol Use History Yes. Alcohol Use Frequency Rarely. (Last Updated: 09/05/2015 12:11:48 EDT by Tsering Coreas, RN) Substance Abuse: Drug Use Hx: No. Use in Last 12 Months: No. (Last Updated: 09/05/2015 12:11:54 EDT by Tsering Coreas, RN) Infectious Disease History Infectious Disease History : Influenza Fever/Chills Last 48 Hours : No Travel To Regions with Travel Advisories : No Travel Outside [place] Within Last 30 Days : No Contact With Traveler to Advisory Region : No Tuberculosis Symptoms : None Yeni Shields RN - 03/07/2018 8:29 EST Anesthesia/Transfusion History Family History of Anesthesia Reaction : No prior transfusion(s) Blood Transfusion Acceptable to Patient : Yes Transfusion History : Prior anesthesia reaction Type of Anesthesia Reaction : Anesthesia awareness Family History of Anesthesia Reaction : None Yeni Shields RN - 03/07/2018 8:29 EST Functional Assessment Living Situation : Home Patient Lives With : Spouse Current Home Treatments : Blood glucose monitoring Yeni Shields RN - 03/07/2018 8:29 EST Psychosocial History Do You Have a History of the Following? : Patient denies history Currently in Unsafe Situation : No Tried to Harm Yourself in the Past? : No Thoughts of Harming/Killing Yourself : No Yeni Shields RN - 03/07/2018 8:29 EST Advance Directive Patient has Advance Directive *Q : No, patient refuses Advance Directive information Yeni Shields RN - 03/07/2018 8:29 EST Teaching/Learning Assessment Barriers To Learning : None evident Individuals Taught : Patient, Spouse Readiness to Learn : Explanation Learning Style Preferences Patient : Verbal explanation Learning Style Preferences Family : Verbal explanation Yeni Shields RN - 03/07/2018 8:29 EST Education Topics, Periop Preadmission Perioperative Education [place] : Verbalizes understanding Infection Control : Verbalizes understanding IV's : Verbalizes understanding NPO Status/Directions : Verbalizes understanding Pain Management : Verbalizes understanding Preprocedure Preparations : Verbalizes understanding Preprocedure Tests/Labs : Verbalizes understanding Yeni Shields RN - 03/07/2018 8:29 EST General Info Preferred Name : josette Arrived From : Home Mode of Arrival on Unit : Ambulatory Patient Arrival Date/Time : 03/07/2018 8:16 EST Legal Guardian : Spouse Support Person/Pt Rep Name : Mere Fernandez Support Person/Pt Rep Contact Information : [phone] Want Family/Rep/Phys Notified of Admit : No Emergency Contact #1 : Mere Rebecca Emergency Contact #1 Emergency Contact #1 Relationship : Emergency Contact #2 : NA Emergency Contact #2 Phone Number : NA Emergency Contact #2 Relationship : NA Information Obtained From : Patient Primary Language : Persian Preferred Communication Mode : Verbal Communication Barrier : None Yeni Shields RN - 03/07/2018 8:29 EST Vital Measurements Temperature Source : Temporal artery scanning Temperature Mode : Fahrenheit Temperature, Fahrenheit : 98.4 Deg F Clinical Temperature, C : 36.9 Deg C Peripheral Pulse Rate : 68 bpm Systolic Blood Pressure : 171 mmHg (HI) Diastolic Blood Pressure : 84 mmHg Oxygen Saturation : 94 % Oxygen Therapy Mode : Room air Yeni Shields RN - 03/07/2018 8:29 EST Sleep Apnea Risk Assmt Hx of Obstructive Sleep Apnea Diagnosis : Yes BiPAP/CPAP Ordered for Home Use : Yes BiPAP/CPAP Used at Home : No Reason BiPAP/CPAP Not Used at Home : uncomfortable BiPAP/CPAP Home Settings : NA Home BiPAP/CPAP Device With Patient : No Yeni Shields RN - 03/07/2018 8:29 EST Afshin Scale Afshin Sensory Perception : No impairment Afshin Moisture : Rarely moist Afshin Activity : Walks frequently Afshin Mobility : No limitation Afshin Nutrition : Excellent Afshin Friction and Shear : No apparent problem Afshin Score : 23 Yeni Shields RN - 03/07/2018 8:29 EST Pain Assessment Pain Assessment : Initial assessment Pain Scale Used : 0-10 Scale Yeni Shields RN - 03/07/2018 8:29 EST Fall Risk Scales ABCs Fall Injury Risk Identification : None WARREN Hx Falls Immediate/Within 3 Months : No Warren Secondary Diagnosis : No WARREN Use of Ambulatory Aid : None WARREN IV Therapy or IV Access : Yes Warren Gait/Transferring : Normal, bedrest, immobile [place] Mental Status : Oriented to own ability Warren Fall Risk Score : 20 WARREN Fall Scale Risk Level : 0-24 Low Risk [place] Fall Interventions : Adequate lighting, Bed in low position, Call device within reach, Hourly comfort/safety rounds, Non-slip footwear, Personal items within reach, Room free of clutter/spills, Upper side-rails up, Wheels locked, Wires/Cords secured Yeni Shields RN - 03/07/2018 8:29 EST Valuables and Belongings Valuables and Belongings : Clothing, Jewelry, Personal items Clothing : Common streetwear Clothing Disposition : Bedside, With family, Declines to send to security/safe Jewelry : Ring-plain band Jewelry Disposition : With patient, Declines to send to security/safe Personal Items : Wallet Personal Items Disposition : With family, Declines to send to security/safe Yeni Shields RN - 03/07/2018 8:29 EST Pain Scale Intensity : 0 Yeni Shields RN - 03/07/2018 8:29 EST Image 4 - Images currently included in the form version of this document have not been included in the text rendition version of the form. documented in this encounter Plan of Treatment Not on file documented as of this encounter Visit Diagnoses Not on filedocumented in this encounter
--- OUTSIDE RECORDS SUMMARY | 2024-01-25 15:17 | XMS_ITS | Encounter Summary ---
[facility] Address [address] [place] [address] Care Team Providers Care Felling Bucking Supervisor Name Role Phone Macario Bell MD Primary Care Provider + Encounter Details Date Type Department Care Team (Late st Contact Info) Description 10/11/2017 External CPT II [facility] REPOR[facility] Social History Tobacco Use Types Packs/Day Years [...] on filedocumented in this encounter Care Teams Felling Bucking Supervisor Relationship Specialty Start Date End Date Macario Bell MD PCP - General Family Medicine 01/08/16 documented as of this encounter
--- OUTSIDE RECORDS SUMMARY | 2024-01-25 15:17 | XMS_ITS | Encounter Summary ---
Author Organization [employer] Address [address] [place] [address] Care Team Providers Care Restaurant Operations Manager Name Role Phone Unavailable Primary Care Provider Unavailabl e Encounter Details Date Type Department Care Team (Late st Contact Info) Description 03/07/2018 Transcribed Document [facility] [place] Family Medicine [address] [place] [address] ProviderSarah MD [address] [place] [address] Social History Tobacco Use Types Packs/Day Years Used Date Smoking Tobacco: Never Assessed Sex and Gender Information Value Date Recorded Sex Assigned at Not on file Legal Sex Male 1:22 PM CDT Gender Identity Not on file Sexual Orientation Not on file documented as of this encounter Miscellaneous Notes * Cerner Conversion Note - Sarah ProviderMD - 03/07/2018 11:22 AM MANAGER PART [address] [place] [address] Patient Copy Patient Information: Name: APOLONIA FERNANDEZ V Current Date: 03/07/2018 11:22:13 : 1950 Patient Address: [address] [place] [address] [facility] [address] Patient Attending Physician: PENNY LA MD-PREM Primary Care Provider: TENZIN RICARDO MD-[facility] Primary Care Provider Discharge Diagnosis: Weight on Admission: 261 lb, 0 oz Comment: Follow-up Instructions: With: Address: When: [place] [address] [place] [address], [address] [place] [phone] Business (1) 10:15 AM Discharge Instructions: Diet [...] 09/03/2005 Document Revised: 07/23/2016 Document Reviewed: 07/19/2013 MumsWay Interactive Patient Education ? 2017 MumsWay Inc. Radial Site Care Introduction Refer to [...] you are awake and alert. ??? Take mgky-ewo-utfpzbe and prescription medicines only as told by [...] 12/06/2013 Document Revised: 07/20/2016 Document Reviewed: 06/06/2016 MumsWay Interactive Patient Education ? 2017 MumsWay Inc. Medication Leaflets: ranolazine (ra CHARLENE nice) [...] following drugs: ? clarithromycin; ?? nefazodone; ?? [place]'s wort; ?? antifungal medicine--itraconazole, ketoconazole; ?? HIV [...] may report side effects to FDA at 6-690-JUH-2649. What other drugs will affect ranolazine? Many [...] interact with ranolazine. This includes prescription and ydxx-ahp-igttsha medicines, vitamins, and herbal products. Give a [...] to ensure that the information provided by PivotLink. ('Multum') is accurate, up-to-date, and complete, but no guarantee is made to that effect. Drug information contained herein may be time sensitive. Heyy information has been compiled for use by healthcare practitioners and consumers in the [place] and therefore Heyy does not warrant that uses outside of the [place] are appropriate, unless specifically indicated otherwise. Heyy's drug information does not endorse drugs, diagnose patients or recommend therapy. Sirion Holdingss drug information is an informational resource designed [...] effective or appropriate for any given patient. Heyy does not assume any responsibility for any aspect of healthcare administered with the aid of information Heyy provides. The information contained herein is not intended to cover all possible uses, directions, precautions, warnings, drug interactions, allergic reactions, or adverse effects. If you have questions about the drugs you are taking, check with your doctor, nurse or pharmacist. Copyright 2840-3953 [facility]. Version: 12.30. Revision Date: 04/18/2015. CIGARETTE SMOKING: The facts are clear, cigarette smoking will shorten your life. Smoking can cause many illnesses along the way. As a healthcare provider, we recommend that you stop smoking. Assistance with quitting is available by contacting 4-553-DQQO-NOW. This is a free resource providing counseling, [...] Be sure to sign up for the [employer] patient portal, which gives you 21/09 access to your medical information ??? including these discharge instructions ??? using your computer, smartphone, or tablet. Just go to [employer] to get started. Questions? Call . [facility] would like to thank you for allowing us to assist you with your healthcare needs. CONSUELO Solano ROY V, (or call center representative) have received the above patient education materials/instructions and have verbalized understanding: Patient Signature _ Date/Time Patient Tandem Mill Roller Signature (if needed) Date/Time Clinician/Hospital Tandem Mill Roller Signature (if needed) Date/Time documented in this encounter Plan of Treatment Not on file documented as of this encounter Visit Diagnoses Not on filedocumented in this encounter
--- OUTSIDE RECORDS SUMMARY | 2024-01-25 15:17 | XMS_ITS | Encounter Summary ---
Author Organization [employer] iatives Address [address] [place] [address] Care Team Providers Care Cold Type Composing Machine Operator Name Role Phone Unavailable Primary Care Provider Unavailabl e Reason for Visit * Reason Comments Medication Refill Encounter Details Date Type Department Care Team (Late st Contact Info) Description 05/18/2022 Refill [facility] Cardiology [address] [facility] [address] [place] [address] Jhonatan Jung MD [address] [facility] [address] [place] [phone] Social History Tobacco Use Types Packs/Day Years [...]
--- OUTSIDE RECORDS SUMMARY | 2024-01-25 15:17 | XMS_ITS | Clinical Summary ---
Author Organization [facility] Address [address] [place] [address] Care Team Providers Care Bellhop Captain Name Role Phone Macario Bell MD Primary Care Provider + Allergies No known active allergies Medications carvedilol (COREG) 6.25 MG tablet 2016 Active lisinopril (PRINIVIL,ZESTR IL) 40 MG tablet 12/13/2015 Active metFORMIN (GLUCOPHAGE) 500 MG tablet 12/17/2015 Activ e aspirin 81 MG chewable tablet Chew 81 mg Daily. Active memantine (NAMENDA TITRATION MAICO) 5 (28)-10 (21) MG tablet pack Follow package directions. 1 package 01/08/2016 Active Active Problems Problem Noted Date Diagnosed Date Hypertension 12/27/2015 Cognitive impairment, mild, so stated 12/27/2015 Obstructive sleep apnea 12/27/2015 Periodic limb movement disorder (PLMD) 6 Family History Medical History Relation Name Comments Cancer Brother Heart disease Mother Hypertension Mother No Known Problems Other Multiple family members Relation Name Status Comments Brother Mother Other Multiple family members Alive Social History Tobacco Use Types Packs/Day Years Used Date Smoking Tobacco: Never Alcohol Use Standard Drinks/Week Comments Yes 0 (1 standard drink = 0.6 oz pur e alcohol) occasional Abuse Screen Answer Date Recorded Unsafe at Home or Work/School Not on file Feels Threatened by Someone? Not on file 10/2022 Does Anyone Keep You from Co ntacting Others or Doint Things Outside the Home? Not on file 12/07/2022 Physical Sign of Abuse Present Not on file 1 Housing Stability Answer Date Recorded Current Living Arrangements Not on file 10/2022 Potentially Unsafe Housing Conditions Not on juan daniel e 12/07/2022 Family and Community Support Answer Ramírez e Recorded Help with Day-to-Day Activities Not on file 12/07/2022 Lonely or Isolated Not on file 12/07/2022 Employment Answer Date Recorded Do you want help finding or keeping work or a keesha b? Not on file 12/07/2022 Disabilities Answer Date Recorded Concentrating, Remembering, or Making Decisions Difficulty Not on file 12/07/2022 Doing Errands Independently Difficulty Not on fi le 12/07/2022 Education Answer Date Recorded Help with school or training? Not on file Preferred Language Not on file 12/07/2022 Sex and Gender Information Value Date Recorded Sex Assigned at Not on file Legal Sex Male 11:48 AM EDT Gender Identity Not on file Sexual Orientation Not on file Last Filed Vital Signs Vital Sign Reading Time Taken Comments Blood Pressure 140/90 04/15/2016 8:24 AM EST Pulse - - Temperature - - Respiratory Rate - - Oxygen Saturation - - Inhaled Oxygen Concentration - - Weight 111 kg (245 lb) 04/15/2016 8:24 AM EST Height 172.7 cm (5' 8 ) 04/15/2016 8:24 AM EST Body Mass Index 37.25 04/15/2016 8:24 AM EST Plan of Treatment Health Maintenance Due Date Last Done Comments ANNUAL WELLNESS VISIT 1950 COLOGUARD 1950 COLON CANCER SCREENING 5 YEAR SIGMOIDOSCOPY 1950 COLONOSCOPY 1950 COLORECTAL CANCER SCREENING 1950 [address] COLONOGRAPHY 1950 FECAL OCCULT BLOOD TEST 1950 FIT Testing (1 year) 1950 HEPATITIS C SCREENING 1950 TDAP/TD VACCINES (1 - Tdap) 01/07/1968 ZOSTER VACCINE (1 of 2) 1999 Pneumococcal Vaccine 65+ (1 of 1 - PCV) 2014 INFLUENZA VACCINE 09/30/2023 COVID-19 Vaccine (1 - 2023- season) 2023 RSV Vaccine - Adults (1 - 1-dose 75+ series) 4 Insurance MEDICARE [place] [address] [address] [employer] Care Teams Bellhop Captain Relationship Specialty Start Date End Date Macario Bell MD PCP - General Family Medicine 01/08/16
--- OUTSIDE RECORDS SUMMARY | 2024-01-25 15:17 | XMS_ITS | Encounter Summary ---
Author Organization [employer] i[employer] Address [address] [place] [address] Care Team Providers Care Cloth Cutting Inspector Name Role Phone Unavailable Primary Care Provider Unavailabl e Encounter Details Date Type Department Care Team (Late st Contact Info) Description 03/07/2018 Transcribed Document [facility] [place] [place] Family Medicine [address] [place] [address] ProviderSarah MD [facility] [place] [address] Social History Tobacco Use Types Packs/Day Years Used Date Smoking Tobacco: Never Assessed Sex and Gender Information Value Date Recorded Sex Assigned at Not on file Legal Sex Male 1:22 PM CDT Gender Identity Not on file Sexual Orientation Not on file documented as of this encounter Miscellaneous Notes * Cerner Conversion Note - Historical ProviderMD - 03/07/2018 10:08 AM TRAFFIC RATE COMPUTER Discharge Instructions Entered On: 03/07/2018 10:09 EST Performed On: 03/07/2018 10:08 EST by Yeni Shields RN DC Instructions HWD Stroke/TIA Discharge Ins : N/A Heart Failure Discharge Ins : N/A Warfarin Discharge Ins : N/A Diet After Discharge : Resume usual diet as tolerated Activity After Discharge : Rest and relax today, No strenuous activities, Other: see post radial sheet for activity restriction Driving After Discharge : Do not drive, Other: for 24 hours Showering/Bathing : Other: May shower in 24 hours. No tub bathing, soaking, or swimming for 3-5 days Wound/Incision Care After Discharge : Keep operative site/wound site clean and dry, Other: Remove dressing in 24 hours Special Instructions : Monitor site for bleeding. If bleeding occurs, apply manual pressure and call 911. Hold metformin for 48 hours Yeni Shields RN - 03/07/2018 10:08 EST Electronically signed by [facility] Conversion Advertising Display Rotator Cerner at 06/17/2022 7:55 PM CDT documented in this encounter Plan of Treatment Not on file documented as of this encounter Visit Diagnoses Not on filedocumented in this encounter
--- OUTSIDE RECORDS SUMMARY | 2024-01-25 15:17 | XMS_ITS | Clinical Summary ---
Author Organization [employer] Address [address] [place] [address] Care Team Providers Care Parking Lot Attendant Name Role Phone Unavailable Primary Care Provider [...]
--- OUTSIDE RECORDS SUMMARY | 2024-01-25 15:17 | XMS_ITS | Encounter Summary ---
Author Organization [employer] Address [address] [place] [address] Care Team Providers Care Machine Shop Specialist Name Role Phone Unavailable Primary Care Provider Unavailabl e Encounter Details Date Type Department Care Team (Late st Contact Info) Description 03/07/2018 Transcribed Document [facility] [place] Family Medicine [address] [place] [address] ProviderSarah MD [address] [place] [address] Social History Tobacco Use Types Packs/Day Years Used Date Smoking Tobacco: Never Assessed Sex and Gender Information Value Date Recorded Sex Assigned at Not on file Legal Sex Male 1:22 PM CDT Gender Identity Not on file Sexual Orientation Not on file documented as of this encounter Miscellaneous Notes * Cerner Conversion Note - Sarah ProviderMD - 03/07/2018 10:09 AM SUPERVISOR STOCK RANCH [address] [place] [address] Patient Copy Patient Information: Name: APOLONIA FERNANDEZ V Current Date: 03/07/2018 10:09:44 : 1950 Patient Address: [address] [place] [address] [facility] [address] Patient Attending Physician: PENNY LA MD-PREM Primary Care Provider: TENZIN RICARDO MD-[facility] Primary Care Provider Discharge Diagnosis: Weight on Admission: 261 lb, 0 oz Comment: Follow-up Instructions: With: Address: When: [place] [address] [place] [address], [address] [place] [address] Business (1) Within 1 month Discharge Instructions: Diet after Discharge: Resume usual [...] 09/03/2005 Document Revised: 07/23/2016 Document Reviewed: 07/19/2013 ElseBABADU Interactive Patient Education ? 2017 2heuresavant Inc. Radial Site Care Introduction Refer to [...] you are awake and alert. ??? Take vnhs-zmu-fjrmruc and prescription medicines only as told by [...] 12/06/2013 Document Revised: 07/20/2016 Document Reviewed: 06/06/2016 2heuresavant Interactive Patient Education ? 2017 Inquisitive Systems. Medication Leaflets: ranolazine (ra CHARLENE nice) Ranexa [...] following drugs: ? clarithromycin; ?? nefazodone; ?? Phyllis's wort; ?? antifungal medicine--itraconazole, ketoconazole; ?? HIV [...] may report side effects to FDA at 0-675-WCI-9018. What other drugs will affect ranolazine? Many [...] interact with ranolazine. This includes prescription and rjct-qpp-mvzpqfj medicines, vitamins, and herbal products. Give a [...] to ensure that the information provided by Discovery Machine. ('Multum') is accurate, up-to-date, and complete, but no guarantee is made to that effect. Drug information contained herein may be time sensitive. Join The Wellness Team information has been compiled for use by healthcare practitioners and consumers in the [place] and therefore Join The Wellness Team does not warrant that uses outside of the [place] are appropriate, unless specifically indicated otherwise. Join The Wellness Team's drug information does not endorse drugs, diagnose patients or recommend therapy. My Visual Briefs drug information is an informational resource designed [...] effective or appropriate for any given patient. Join The Wellness Team does not assume any responsibility for any aspect of healthcare administered with the aid of information Join The Wellness Team provides. The information contained herein is not intended to cover all possible uses, directions, precautions, warnings, drug interactions, allergic reactions, or adverse effects. If you have questions about the drugs you are taking, check with your doctor, nurse or pharmacist. Copyright 2835-6273 [employer]. Version: .. Revision Date: 04/18/2015. CIGARETTE SMOKING: The facts are clear, cigarette smoking will shorten your life. Smoking can cause many illnesses along the way. As a healthcare provider, we recommend that you stop smoking. Assistance with quitting is available by contacting 1-089-JIVG-NOW. This is a free resource providing counseling, [...] Be sure to sign up for the [employer] patient portal, which gives you 21/09 access to your medical information ??? including these discharge instructions ??? using your computer, smartphone, or tablet. Just go to [employer] to get started. Questions? Call . [facility] would like to thank you for allowing us to assist you with your healthcare needs. CONSUELO Solano ROY V, (or financial foundations representative) have received the above patient education materials/instructions and have verbalized understanding: Patient Signature _ Date/Time Patient Social Services Analyst Signature (if needed) Date/Time Clinician/Hospital Social Services Analyst Signature (if needed) Date/Time Electronically signed by Interface, [facility] Conversion Rn Physician Office Cerner at 06/17/2022 7:30 PM CDT documented in this encounter Plan of Treatment Not on file documented as of this encounter Visit Diagnoses Not on filedocumented in this encounter
--- OUTSIDE RECORDS SUMMARY | 2024-01-25 15:17 | XMS_ITS | Encounter Summary ---
Author Organization [facility] Address [address] [place] [address] Care Team Providers Care Curriculum And Assessment Director Name Role Phone Macario Bell MD Primary Care Provider + Encounter Details Date Type Department Care Team (Late st Contact Info) Description 04/06/2017 External CPT II DIRECTOR WHOLESALE - [employer] Social History Tobacco Use [...] on filedocumented in this encounter Care Teams Curriculum And Assessment Director Relationship Specialty Start Date End Date Macario Bell MD PCP - General Family Medicine 01/08/16 documented as of this encounter
--- OUTSIDE RECORDS SUMMARY | 2024-01-25 15:17 | XMS_ITS | Encounter Summary ---
Author Organization [employer] Address [address] [place] [address] Care Team Providers Care Sewing Machine Attachment Tester Name Role Phone Unavailable Primary Care Provider Unavailabl e Encounter Details Date Type Department Care Team (Late st Contact Info) Description 03/07/2018 Transcribed Document [facility] [place] [address] [place] [address] ProviderSarah MD [address] [place] [id number] Social History Tobacco Use Types Packs/Day Years Used Date Smoking Tobacco: Never Assessed Sex and Gender Information Value Date Recorded Sex Assigned at Not on file Legal Sex Male 1:22 PM CDT Gender Identity Not on file Sexual Orientation Not on file documented as of this encounter Miscellaneous Notes * Cerner Conversion Note - Historical ProviderMD - 03/07/2018 10:07 AM OTR COMPANY DRIVER Nursing Discharge Summary Entered On: 03/07/2018 10:08 EST Performed On: 03/07/2018 10:07 EST by Yeni Shields electronic die maker Documentation Discharge Date/Time : 03/07/2018 12:15 EST Yeni Shields RN - 03/07/2018 12:18 EST Patient Disposition, General : Discharge Discharge To : Home with ambulatory/outpatient follow-up Yeni Shields RN - 03/07/2018 10:07 EST Mode Of Departure, General Discharge : Private vehicle, Wheelchair with adult Yeni Shields RN - 03/07/2018 12:18 EST Accompanied By, Discharge : Spouse IV Discontinued : Yes Personal Belongings With Patient : Yes Prescriptions Given to Patient : Electronically sent Discharge Instructions Reviewed With, Opportunity For Questions Given : Patient, Spouse Patient Education Completed : Yes Teaching Method : Explanation Teaching Evaluation : Returns demonstration, Verbalizes understanding Yeni Shields RN - 03/07/2018 10:07 EST documented in this encounter Plan of Treatment Not on file documented as of this encounter Visit Diagnoses Not on filedocumented in this encounter
--- OUTSIDE RECORDS SUMMARY | 2024-01-25 15:17 | XMS_ITS | Encounter Summary ---
Author Organization [employer] Address [address] [place] [address] Care Team Providers Care Imaging Aide Name Role Phone Unavailable Primary Care Provider Unavailabl e Encounter Details Date Type Department Care Team (Late st Contact Info) Description 03/07/2018 Transcribed Document [facility] [place] Family Medicine [address] [place] [address] ProviderSarah MD [facility] [place], [place] [id number] Social History Tobacco Use Types Packs/Day Years Used Date Smoking Tobacco: Never Assessed Sex and Gender Information Value Date Recorded Sex Assigned at Not on file Legal Sex Male 1:22 PM CDT Gender Identity Not on file Sexual Orientation Not on file documented as of this encounter Miscellaneous Notes * Cerner Conversion Note - Sarah Rizo MD - 03/07/2018 11:22 AM SPACE SYSTEMS OPERATIONS CRAFTSMAN Patient Education Materials Follows: Radial Site Care Introduction Refer to this [...] Revised: 07/23/2016 Document Reviewed: 09/03/2014 ? 2017 Elsevier Pharmacology Moderate Conscious Sedation, Adult, Care After These [...] you are awake and alert. ??? Take zhqp-oox-hcgavuv and prescription medicines only as told by [...] 12/06/2013 Document Revised: 07/20/2016 Document Reviewed: 06/06/2016 BRCK Inc Interactive Patient Education ? 2017 [employer] Managementvier Inc. Radiology Angiogram, Care After Refer to this sheet [...] 09/03/2005 Document Revised: 07/23/2016 Document Reviewed: 07/19/2013 Elsevier Interactive Patient Education ? 2017 BRCK Inc Inc. documented in this encounter Plan of Treatment Not on file documented as of this encounter Visit Diagnoses Not on filedocumented in this encounter
[2024-01-25 15:18] LABS: Albumin Level 4.1 g/dl (3.5-5.0); Chloride 100 mmol/L (98-107); Sodium 138 mmol/L (136-145)
--- OUTSIDE RECORDS SUMMARY | 2024-01-25 15:18 | XMS_ITS | Encounter Summary ---
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 Name Role Phone Unavailable Primary Care Provider Unavailabl e Encounter Details Date Type Department Care Team (Late st Contact Info) Description 04/12/2013 Office Visit Con[facility] [address] [place] [id number] Woo Barron MD Social History Tobacco Use Types Packs/Day Years Used Date Smoking Tobacco: Never Assessed Sex and Gender Information Value Date Recorded Sex Assigned at Not on file Legal Sex Male 11:48 AM EDT Gender Identity Not on file Sexual Orientation Not on file documented as of this encounter Last Filed Vital Signs Vital Sign Reading Time Taken Comments Blood Pressure 134/57 04/12/2013 2:13 PM EST Pulse - - Temperature - - Respiratory Rate - - Oxygen Saturation - - Inhaled Oxygen Concentration - - Weight 124 kg (272 lb 15.9 oz) 04/12/2013 2:13 P M EST Height 172.7 cm (5' 8 ) 04/12/2013 2:13 PM EST Body Mass Index 41.51 04/12/2013 2:13 PM EST documented in this encounter Progress Notes * Woo Barron MD - 04/12/2013 2:15 PM EST PCP/Referring Physician Primary Care Provider: Dr. Macario Bell Chief Complaint 1. Cognitive Difficulties 2. Involuntary Movements 3. Sleep Disturbances History of Present Illness HPI: The patient's memory has been getting worse. She also stopped using his CPAP up but has been using it now recently at the request of hiss were last 3 months. he also has some apraxia now. he's not bothered by PLMS. Review of Systems Constitutional: negative. ENT: negative. Cardiovascular: negative. Respiratory: negative. Gastrointestinal: negative. Genitourinary: negative. Musculoskeletal: negative. Integumentary and Breasts: negative. Neurological: as noted in HPI. Psychiatric: negative. Active Problems 1. Hypertension (401.9) Past Medical History 1. History of Fatty liver (571.8) Family History 1. No pertinent family history Social History 1. 2. Never smoked tobacco (V49.89) 3. Occasional alcohol use Current Meds Medication Name Instruction Aspirin 81 MG Oral Tablet Atenolol 25 MG Oral Tablet Fish Oil OIL Lisinopril 40 MG Oral Tablet Mens One Daily TABS Allergies 1. No Known Drug Allergies Vitals Signs [Data Includes: Current Encounter] Systolic: 134 Diastolic: 57 Height: 5 ft 8 in Weight: 273 lb BMI Calculated: 41.51 BSA Calculated: 2.33 Physical Exam Constitutional General appearance: Normal. Cardiovascular Auscultation of heart: Normal. Carotid pulses: Normal. Peripheral vascular exam: Normal. Eyes Ophthalmoscopic examination: Normal. Memory: short term memory impaired. Attention: the attention span was decreased and a decrease in concentrating ability was observed. Cranial Nerves: visual acuity and visual simmons were intact, the oculomotor, trochlear and abducensnervea were intact, no trigeminal neuropathy was noted, no facial nerve palsy was noted, hearing was intact, there was normal movement of the soft palate and normal gag, shoulder shrug was intact bilaterally and there was no tongue deviation with protrusion. Sensory exam:. Light touch was intact. Pain and temperature sensation was intact. Vibration sense was intact. Proprioception was normal. Coordination: Coordination was normal, including finger to nose, heal to alston, and rapid alternating movements. Deep tendon reflexes: Biceps: right 2+, left 2+. Triceps: right 2+, left 2+. Brachioradialis: right 2+, left 2+. Patella: right 2+, left 2+. Ankle Jerk: right 2+, left 2+. Babinski reflex absent on the right, absent on the left. Musculoskeletal The gait and station were normal. Motor Strength: motor strength was normal in all muscle groups. Motor tone:. The muscle tone was normal. no involuntary movements were seen Assessment 1. Cognitive impairment, mild, so stated (331.83) ?? Assessed By: Woo Barron (Neurology); Last Assessed: 12 Apr 2013 2. Obstructive sleep apnea (327.23) ?? Assessed By: Woo Barron (Neurology); Last Assessed: 12 Apr 2013 3. Periodic limb movement disorder (327.51) ?? Assessed By: Woo Barron (Neurology); Last Assessed: 12 Apr 2013 Plan Cognitive impairment, mild, so stated 1. Start: Start: Exelon 9.5 MG/24HR Transdermal Patch 24 Hour; APPLY DAILY DIRECTED Cognitive impairment, mild, so stated, Obstructive sleep apnea, Periodic limb movement disorder 2. Follow-up visit in 6 months Evaluation and Treatment Follow-up Status: Hold For - Scheduling Requested for: [id number] End of Encounter Meds Medication Name Instruction Aspirin 81 MG Oral Tablet Atenolol 25 MG Oral Tablet Exelon 9.5 MG/24HR Transdermal Patch 24 Hour APPLY DAILY DIRECTED. Fish Oil OIL Lisinopril 40 MG Oral Tablet Mens One Daily TABS Discussion/Summary the patient's Mini-Mental score is today 26 of 30 and he also lost one item on a visual construction. therefore he is starting to have more than just mild cognitive impairment through to his carbon dioxide poisoning. He will have to start an excellent patch and I will see him back in 6 months for repeat MMSE hoping that she will remain stable during that time. I will get a printout from his CPAP for review Reviewed lab tests tsh,b12. PCP records reviewed. Referring MD records reviewed . The patient was counseled regarding instructions for management, patient and family education, impressions, risks and benefits of treatment options and importance of compliance with treatment. Total time of encounter was 35 minutes and 20 minutes was spent counseling. Signatures Electronically signed by : Woo Barron M.D.; Apr 12 2013 2:38PM EST (Author) documented in this encounter Miscellaneous Notes * Letter - Woo Barron MD - 04/12/2013 2:15 PM EST Chief Complaint 1. Cognitive Difficulties 2. Involuntary Movements 3. Sleep Disturbances History of Present Illness HPI: The patient's memory has been getting worse. She also stopped using his CPAP up but has been using it now recently at the request of hiss were last 3 months. he also has some apraxia now. he's not bothered by PLMS. Review of Systems Constitutional: negative. ENT: negative. Cardiovascular: negative. Respiratory: negative. Gastrointestinal: negative. Genitourinary: negative. Musculoskeletal: negative. Integumentary and Breasts: negative. Neurological: as noted in HPI. Psychiatric: negative. Active Problems 1. Hypertension (401.9) Past Medical History ?? History of Fatty liver (571.8) Family History ?? No pertinent family history Social History ? Never smoked tobacco (V49.89) ?? Occasional alcohol use Current Meds Medication Name Instruction Aspirin 81 MG Oral Tablet Atenolol 25 MG Oral Tablet Fish Oil OIL Lisinopril 40 MG Oral Tablet Mens One Daily TABS Allergies 1. No Known Drug Allergies Vitals Signs [Data Includes: Current Encounter] Systolic: 134 Diastolic: 57 Height: 5 ft 8 in Weight: 273 lb BMI Calculated: 41.51 BSA Calculated: 2.33 Physical Exam Constitutional General appearance: Normal. Cardiovascular Auscultation of heart: Normal. Carotid pulses: Normal. Peripheral vascular exam: Normal. Eyes Ophthalmoscopic examination: Normal. Memory: short term memory impaired. Attention: the attention span was decreased and a decrease in concentrating ability was observed. Cranial Nerves: visual acuity and visual simmons were intact, the oculomotor, trochlear and abducensnervea were intact, no trigeminal neuropathy was noted, no facial nerve palsy was noted, hearing was intact, there was normal movement of the soft palate and normal gag, shoulder shrug was intact bilaterally and there was no tongue deviation with protrusion. Sensory exam:. Light touch was intact. Pain and temperature sensation was intact. Vibration sense was intact. Proprioception was normal. Coordination: Coordination was normal, including finger to nose, heal to alston, and rapid alternating movements. Deep tendon reflexes: Biceps: right 2+, left 2+. Triceps: right 2+, left 2+. Brachioradialis: right 2+, left 2+. Patella: right 2+, left 2+. Ankle Jerk: right 2+, left 2+. Babinski reflex absent on the right, absent on the left. Musculoskeletal The gait and station were normal. Motor Strength: motor strength was normal in all muscle groups. Motor tone:. The muscle tone was normal. no involuntary movements were seen Assessment 1. Cognitive impairment, mild, so stated (331.83) ?? Assessed By: Woo Barron (Neurology); Last Assessed: 12 Apr 2013 2. Obstructive sleep apnea (327.23) ?? Assessed By: Woo Barron (Neurology); Last Assessed: 12 Apr 2013 3. Periodic limb movement disorder (327.51) ?? Assessed By: Woo Barron (Neurology); Last Assessed: 12 Apr 2013 Plan Cognitive impairment, mild, so stated ?? Start: Exelon 9.5 MG/24HR Transdermal Patch 24 Hour; APPLY DAILY DIRECTED Cognitive impairment, mild, so stated, Obstructive sleep apnea, Periodic limb movement disorder ?? Follow-up visit in 6 months Evaluation and Treatment Follow-up Status: Hold For - Scheduling Requested for: [id number] End of Encounter Meds Medication Name Instruction Aspirin 81 MG Oral Tablet Atenolol 25 MG Oral Tablet Exelon 9.5 MG/24HR Transdermal Patch 24 Hour APPLY DAILY DIRECTED. Fish Oil OIL Lisinopril 40 MG Oral Tablet Mens One Daily TABS Discussion/Summary the patient's Mini-Mental score is today 26 of 30 and he also lost one item on a visual construction. therefore he is starting to have more than just mild cognitive impairment through to his carbon dioxide poisoning. He will have to start an excellent patch and I will see him back in 6 months for repeat MMSE hoping that she will remain stable during that time. I will get a printout from his CPAP for review Reviewed lab tests tsh,b12. PCP records reviewed. Referring MD records reviewed . The patient was counseled regarding instructions for management, patient and family education, impressions, risks and benefits of treatment options and importance of compliance with treatment. Total time of encounter was 35 minutes and 20 minutes was spent counseling. Signatures Electronically signed by : Woo Barron M.D.; Apr 12 2013 2:38PM EST (Author) documented in this encounter Plan of Treatment Not on file documented as of this encounter Visit Diagnoses Not on filedocumented in this encounter
--- OUTSIDE RECORDS SUMMARY | 2024-01-25 15:18 | XMS_ITS | Encounter Summary ---
Author Organization [facility] Address [address] [place] [address] Care Team Providers Care Beater Out Leveling Machine Name Role Phone Macario Bell MD Primary Care Provider + Reason for Visit * Reason Comments Memory Loss Encounter Details Date Type Department Care Team (Late st Contact Info) Description 04/15/2016 8:30 AM EST Office Visit [facility] [address] [facility] [place] [address] Aron Lopez MD [address] [facility] [address] [place] [address] Cognitive impairment, mild, so stated (Primary Dx) Social History Tobacco Use Types Packs/Day Years [...] Mass Index 37.25 04/15/2016 8:24 AM EST documented in this encounter Progress Notes * Aron Lopez MD - 04/15/2016 8:30 AM EST Subjective CC: memory impairment History of Present Illness Reji Fernandez is a 66 y.o. male who returns to clinic today with a history of cognitive impairment. He was previously followed by Dr. Barron. His has noted symptoms since at about 2005, starting some months following carbon monoxide poisoning. This was marked initially by forgetfulness and word-finding difficulties. This has gradually worsened over time. Additional symptoms have included impairments in language and executive function. There have been no associated symptoms of anxiety and depression. He denies impairments in ADL's. He continues to drive. He is currently residing at home with his in [place]. Prior evaluation has included an MRI of the brain performed in [place] and reviewed by Dr. Barron, not showing any significant abnormalities by report. Screening bloodwork was normal late 2015. He has tried donepezil in the past, though without any perceived benefit. Exelon was too costly. He was started on Namenda in 01/14, though neither her nor his feel this has led to any benefit. It should be noted that he has a history of BASIM, though is noncompliant with his CPAP machine. The following portions of the patient's history were reviewed and updated as appropriate: allergies, current medications, past family history, past medical history, past social history, past surgicalhistory and problem list. Review of Systems Constitutional: Negative. Respiratory: Negative. Cardiovascular: Negative. Gastrointestinal: Negative. Musculoskeletal: Negative. Psychiatric/Behavioral: Negative. Objective Visit Vitals ??? BP 140/90 ??? Ht 68 (172.7 cm) ??? Wt 245 lb (111 kg) ??? BMI 37.25 kg/m2 General appearance today is normal. Physical Exam Constitutional: He is oriented to person, place, and time. Neurological: He is oriented to person, place, and time. He has normal strength. He has a normal Ofzmcv-Jyxn-Ugdrzb Test. Gait normal. Psychiatric: His speech is normal. Neurologic Exam Mental Status Oriented to person, place, and time. Registration: recalls 3 of 3 objects. Recall at 5 minutes: recalls 1 of 3 objects. Follows 3 step commands. Attention: normal. Speech: speech is normal Level of consciousness: alert Knowledge: good. Able to name object. Able to read. Able to repeat. Able to write. Normal comprehension. Cranial Nerves Cranial nerves II through XII intact. Motor Exam Muscle bulk: normal Overall muscle tone: normal Strength Strength 5/5 throughout. Sensory Exam Light touch normal. Gait, Coordination, and Reflexes Gait Gait: normal Coordination Finger to nose coordination: normal Results MMSE=27 (unchanged) Assessment/Plan Reji was seen today for memory loss. Diagnoses and all orders for this visit: Cognitive impairment, mild, so stated Discussion/Summary Reji Fernandez returns to clinic today with a history of possible Mild Cognitive Impairment. This may well be due, is at least in part, to his history of carbon monoxide poisoning. After discussing potential treatment options, it was elected to continue memantine and try adding Razadyne ER. He will callin a month if doing well and we can increase from 8 to 16 mg daily. He will then follow up in 6 months, or sooner if needed. I spent 25 minutes with the patient and family. I spent 75 percent of this time counseling and discussing diagnosis, prognosis, diagnostic testing, evaluation, current status, treatment options and management. As part of this visit I reviewed prior lab results and obtained additional history from the family which is incorporated in the HPI. Aron Lopez MD documented in this encounter Plan of Treatment Not on file documented as of this encounter Visit Diagnoses Diagnosis Cognitive impairment, mild, so stated- Primary Mild cognitive impairment, so stated documented in this encounter Care Teams Beater Out Leveling Machine Relationship Specialty Start Date End Date Macario Bell MD PCP - General Family Medicine 01/08/16 documented as of this encounter
--- OUTSIDE RECORDS SUMMARY | 2024-01-25 15:18 | XMS_ITS | Encounter Summary ---
[facility] Address [address] [place] [address] Care Team Providers Care Change House Attendant Name Role Phone Macario Bell MD Primary Care Provider + Reason for Referral * Consultation (Routine) - Closed Specialty Diagnoses / Procedures Referred By Contact Referred To Contact Pulmonary Disease / Sleep Medicine Diagnoses Mild cognitive impairment Kenisha Dorado PA-C Phone: tel: fax: [facility] [address] [facility] [address] [place] [address] Phone: tel: fax: Referral ID Status Reason Start Date Expiration Date V isits Requested Visits Authorized [id number] Closed Specialty Services Required 01/08/2016 07/06/2016 1 1 Reason for Visit * Reason Comments Memory Loss Encounter Details Date Type Department Care Team (Late st Contact Info) Description 01/08/2016 10:00 AM EST Office Visit [facility] [address] [facility] [address] [place] [address] Kenisha Dorado PA-C [address] [facility] [address] [place] [address] Mild cognitive impairment (Primary Dx); Obstructive sleep apnea Social History Tobacco Use Types Packs/Day Years [...] Sign Reading Time Taken Comments Blood Pressure 120/70 01/08/2016 10:15 AM EST Pulse - - Temperature - - Respiratory Rate - - Oxygen Saturation - - Inhaled Oxygen Concentration - - Weight 108 kg (239 lb) 01/08/2016 10:15 AM EST Height 170.2 cm (5' 7 ) 01/08/2016 10:15 AM EST Body Mass Index 37.43 01/08/2016 10:15 AM EST documented in this encounter Progress Notes * Kenisha Dorado PA-C - 01/08/2016 11:24 AM EST Subjective History of Present Illness Reji Fernandez is a 66 y.o. male who comes to clinic today for evaluation of cognitive impairment. He was previously followed by Dr. Barron. He has noted symptoms since at least 2005 following carbon monoxide poisoning marked initially by forgetfulness and word-finding difficulties. This has gradually worsened over time. Additional symptoms have included impairments in short term memory and executive function. There have been no associated symptoms of anxiety and depression. He denies impairments in ADL's. He manages his medications and his manages their finances. He continues to drive. He is currently residing at home with his . Prior evaluation has included an MRI of the brain. Unfortunately, we do not currently have these results. He has tried donepezil in the past, though without any perceived benefit. Exelon was too costly. It should be noted that he has a history of BASIM, though is noncompliant with his CPAP machine. The following portions of the patient's history were reviewed and updated as appropriate: allergies, current medications, past family history, past medical history, past social history, past surgicalhistory and problem list. Review of Systems Constitutional: Negative. HENT: Negative. Eyes: Negative. Respiratory: Negative. Cardiovascular: Negative. Gastrointestinal: Negative. Endocrine: Negative. Genitourinary: Negative. Musculoskeletal: Negative. Skin: Negative. Allergic/Immunologic: Negative. Hematological: Negative. Psychiatric/Behavioral: Negative. Objective Visit Vitals ??? BP 120/70 ??? Ht 67 (170.2 cm) ??? Wt 239 lb (108 kg) ??? BMI 37.43 kg/m2 General appearance today is normal. Physical Exam Constitutional: He is oriented to person, place, and time. Neurological: He is oriented to person, place, and time. He has normal strength. He has a normal Cowskw-Pcws-Ivtbys Test. Psychiatric: His speech is normal. Neurologic Exam Mental Status Oriented to person, place, and time. Registration: recalls 3 of 3 objects. Recall at 5 minutes: recalls 1 of 3 objects. Follows 3 step commands. Attention: normal. Speech: speech is normal Level of consciousness: alert Able to name object. Able to read. Able to repeat. Able to write. Normal comprehension. Cranial Nerves Cranial nerves II through XII intact. Motor Exam Muscle bulk: normal Overall muscle tone: normal Strength Strength 5/5 throughout. Sensory Exam Light touch normal. Gait, Coordination, and Reflexes Coordination Finger to nose coordination: normal Tremor Resting tremor: absent Results MMSE=27 (26 in 04/14) Assessment/Plan Reji was seen today for memory loss. Diagnoses and all orders for this visit: Mild cognitive impairment - TSH - Folate - Vitamin B12 - CBC & Differential - Comprehensive Metabolic Panel - CBC Auto Differential Discussion/Summary Reji Fernandez returns to clinic today for evaluation of cognitive impairment. It is likely that his memory impairment is at least in part due to his history of carbon monoxide poisoning. I am also somewhat concerned about Mild Cognitive Impairment. Additionally, his history of obstructive sleep apnea may also be contributing to his symptoms. All of this was discussed in detail with the patient and his family.It was elected to obtain screening blood work in order to complete his work-up. We will also obtain his previous MRI of the brain. After discussing potential treatment options, it was electedto add memantine. As for his BASIM, I have made a referral to pulmonology. He will then follow up in 3 months, or sooner if needed. I spent 30 minutes with the patient and family. I spent 75 percent of this time counseling and discussing diagnosis, prognosis, diagnostic testing, evaluation, current status, treatment options and management. As part of this visit I obtained additional history from the family which is incorporated in the HPI. Kenisha Dorado PA-C documented in this encounter Plan of Treatment Scheduled Referrals Name Type Priority Associated Diagnoses Order Schedule Ambulatory Referral to Pulmonology Outpatient Referral Routine Mild cognitive impairment Ordered: 01/08/2016 documented as of this encounter Procedures Procedure Name Priority Date/Time Associated Diagnosis Comments CBC WITH AUTO DIFFERENTIAL Routine 01/08/2016 10:50 AM EST Mild cognitive impairment CBC AND DIFFERENTIAL Routine 01/08/2016 10:50 AM EST Mild cognitive impairment TSH Routine 01/08/2016 10:50 AM EST Mild cognitive impairment FOLATE Routine 01/08/2016 10:50 AM EST Mild cognitive impairment VITAMIN B12 Routine 01/08/2016 10:50 AM EST Mild cognitive impairment COMPREHENSIVE METABOLIC PANEL Routine 01/08/2016 10:50 AM EST Mild cognitive impairment documented in this encounter Results * CBC Auto Differential (01/08/2016 10:50 AM EST) WBC 7.61 3.50 - 10.80 10*3/mm3 01/08/2016 12:52 PM EST [facility] RBC 5.02 4.20 - 5.76 10*6/mm3 01/08/2016 12:52 PM EST [facility] Hemoglobin 14.9 13.1 - 17.5 g/dL 01/08/2016 12:52 PM EST [facility] Hematocrit 45.6 38.9 - 50.9 % 01/08/2016 12:52 PM EST [facility] MCV 90.8 80.0 - 99.0 fL 01/08/2016 12:52 PM EST [facility] MCH 29.7 27.0 - 31.0 pg 01/08/2016 12:52 PM EST [facility] MCHC 32.7 32.0 - 36.0 g/dL 01/08/2016 12:52 PM EST [facility] RDW 13.2 11.3 - 14.5 % 01/08/2016 12:52 PM [facility] RDW-SD 43.4 37.0 - 54.0 fl 01/08/2016 12:52 PM [facility] MPV 10.5 6.0 - 12.0 fL 01/08/2016 12:52 PM [facility] Platelets 286 150 - 450 10*3/mm3 01/08/2016 12:52 PM [facility] Neutrophil % 46.6 41.0 - 71.0 % 01/08/2016 12:52 PM [facility] Lymphocyte % 39.6 24.0 - 44.0 % 01/08/2016 12:52 PM [facility] Monocyte % 10.5 0.0 - 12.0 % 01/08/2016 12:52 PM [facility] Eosinophil % 2.5 0.0 - 3.0 % 01/08/2016 12:52 PM [facility] Basophil % 0.7 0.0 - 1.0 % 01/08/2016 12:52 PM [facility] Immature Grans % 0.1 0.0 - 0.6 % 01/08/2016 12:52 PM [facility] Neutrophils, Absolute 3.55 1.50 - 8.30 10*3/mm3 01/08/2016 12:52 PM [facility] Lymphocytes, Absolute 3.01 0.60 - 4.80 10*3/mm3 01/08/2016 12:52 PM [facility] Monocytes, Absolute 0.80 0.00 - 1.00 10*3/mm3 01/08/2016 12:52 PM [facility] Eosinophils, Absolute 0.19 0.10 - 0.30 10*3/mm3 01/08/2016 12:52 PM [facility] Basophils, Absolute 0.05 0.00 - 0.20 10*3/mm3 01/08/2016 12:52 PM [facility] Immature Grans, Absolute 0.01 0.00 - 0.03 10*3/mm3 01/08/2016 12:52 PM [facility] Blood Venipuncture / Unknown 01/08/2016 10:50 AM EST 01/08/2016 10:50 AM EST us Kenisha Dorado PA-C LAB BLOOD ORDERABLES Final Res ult [facility]
[address] [place] [address], * (ABNORMAL) Comprehensive Metabolic Panel (01/08/2016 10:50 AM EST) Glucose 106(H) 70 - 100 mg/dL 01/08/2016 1:37 PM EST [facility] BUN 12 9 - 23 mg/dL 01/08/2016 1:37 PM [facility] Creatinine 0.80 0.60 - 1.30 mg/dL 01/08/2016 1:37 PM [facility] Sodium 137 132 - 146 mmol/L 01/08/2016 1:37 PM [facility] Potassium 4.6 3.5 - 5.5 mmol/L 01/08/2016 1:37 PM [facility] Chloride 102 99 - 109 mmol/L 01/08/2016 1:37 PM EST [facility] CO2 31.0 20.0 - 31.0 mmol/L 01/08/2016 1:37 PM [facility] Calcium 9.5 8.7 - 10.4 mg/dL 01/08/2016 1:37 PM EST [facility] Total Protein 8.1 5.7 - 8.2 g/dL 01/08/2016 1:37 PM [facility] Albumin 3.90 3.20 - 4.80 g/dL 01/08/2016 1:37 PM EST [facility] ALT (SGPT) 22 7 - 40 U/L 01/08/2016 1:37 PM [facility] AST (SGOT) 21 0 - 33 U/L 01/08/2016 1:37 PM [facility] Alkaline Phosphatase 54 25 - 100 U/L 01/08/2016 1:37 PM [facility] Total Bilirubin 0.5 0.3 - 1.2 mg/dL 01/08/2016 1:37 PM [facility] eGFR Non Amer 96 >60 mL/min/1.7 3 01/08/2016 1:37 PM [facility] Globulin 4.2 gm/dL 01/08/2016 1:37 PM [facility] A/G Ratio 0.9 g/dL 01/08/2016 1:37 PM [facility] BUN/Creatinine Ratio 15.0 7.0 - 25.0 01/08/2016 1:37 PM [facility] Anion Gap 4.0 3.0 - 11.0 mmol/L 01/08/2016 1:37 PM [facility] Blood Venipuncture / Unknown 01/08/2016 10:50 AM EST 01/08/2016 10:50 AM EST [facility] - 01/08/2016 1:37 PM EST National [employer] Guidelines Stage ? Description ?GFR 1 ?Normal or High ? 90+ 2 ?Mild decrease ? 60-89 3 ?Moderate decrease ?30-59 4 ?Severe decrease ?15-29 5 ?Kidney failure ?<15 Kenishaleanne Dorado PA-C LAB BLOOD ORDERABLES Final Res ult Performing Organization Address [facility] de Phone Number [facility]
[address] [place] [address], * Vitamin B12 (01/08/2016 10:50 AM EST) [facility] Vitamin B-12 652 211 - 911 pg/mL 01/08/2016 1:37 PM EST [facility] Blood Venipuncture / Unknown 01/08/2016 10:50 AM EST 01/08/2016 10:50 AM EST Kenisha Dorado PA-C LAB BLOOD ORDERABLES Final Res ult Performing Organization Address [facility] de Phone Number [facility]
[address] [place] [address], * Folate (01/08/2016 10:50 AM EST) [facility] Folate 13.79 3.20 - 20.00 ng/mL 01/08/2016 1:37 PM EST [facility] Blood Venipuncture / Unknown 01/08/2016 10:50 AM EST 01/08/2016 10:50 AM EST Narrative [facility] - 01/08/2016 1:37 PM EST Folate Reference Ranges: Deficient: ?Less than 1.2 ng/mL Indeterminant: ?1.2-3.1 ng/mL Normal: ? 3.2-20.0 ng/mL Kenisha Dorado PA-C LAB BLOOD ORDERABLES Final Res ult Performing Organization Address [facility] Co de Phone Number [facility]
[address] [place] [address], * TSH (01/08/2016 10:50 AM EST) TSH 0.952 0.350 - 5.350 mIU/mL 01/08/2016 1:37 PM EST [facility] Blood Venipuncture / Unknown 01/08/2016 10:50 AM EST 01/08/2016 10:50 AM EST Kenisha Dorado PA-C LAB BLOOD ORDERABLES Final Res ult Performing Organization Address [facility] de Phone Number [facility]
[address] [place] [address], documented in this encounter Visit Diagnoses Diagnosis Mild cognitive impairment- Primary Mild cognitive impairment, so stated Obstructive sleep apnea Obstructive sleep apnea (adult) (pediatric) documented in this encounter Care Teams Change House Attendant Relationship Specialty Start Date End Date Macario Bell MD PCP - General Family Medicine 01/08/16 documented as of this encounter
--- OUTSIDE RECORDS SUMMARY | 2024-01-25 15:18 | XMS_ITS | Encounter Summary ---
[facility] Address [address] [place] [address] Care Team Providers Care General Intern Name Role Phone Macario Bell MD Primary Care Provider + Encounter Details Date Type Department Care Team (Late st Contact Info) Description 04/16/2016 Telephone [facility] [address] [facility] [address] [place] [address] Dina Thomson CMA Social History [...] Telephone Encounter - Dina Thomson CMA - 04/16/2016 12:46 PM EST Pts called back, I informed her that I called in the glantamine/ razadyne 8 mg to [facility] which is what pt will take for the 1st month, after the 1st month to call office and let us know how he is doing, then will increase to 16 mg daily. She verbalized understanding and will cb if needed. * Telephone Encounter - Dina Thomson CMA - 04/16/2016 12:46 PM EST ----- Message from Arno Lopez MD sent at 04/16/2016 11:41 AM EST ----- Regarding: RE: ARUN- RX MEDICATION ISSUE Contact: I don't think these can be cut in half, though they could check with their pharmacist to be sure. Thanks. ----- Message ----- From: Dina Thomson CMA Sent: 04/16/2016 11:29 AM To: Aron Lopez MD Subject: FW: ARUN- RX MEDICATION ISSUE Is it okay for pt to break these in half? ----- Message ----- From: Marta Gonzalez Sent: 04/16/2016 8:59 AM To: [facility] Clinical Pool Subject: ARUN- RX MEDICATION ISSUE PTS PICKED UP RX YESTERDAY FROM PHARMACY AND IT ENDED UP BEING 16MG- TAKE 1 TABLET A DAY #30 IT SHOULD BE RAZADYNE 8MG- TAKE 1 TABLET BY MOUTH DAILY FOR 30 DAYS AND THEN IF DOING OK MAY INCREASE TO 16MG. PLEASE CALL PTS TO CLARIFY OR CALL PHARMACY TO CLARIFY. PHARMACY: [facility] PTS #: [phone] documented in this encounter Plan of Treatment Not on file documented as of this encounter Visit Diagnoses Not on filedocumented in this encounter Care Teams General Intern Relationship Specialty Start Date End Date Macario Bell MD PCP - General Family Medicine 01/08/16 documented as of this encounter
--- OUTSIDE RECORDS SUMMARY | 2024-01-25 15:18 | XMS_ITS | Encounter Summary ---
Author Organization [facility] Address [address] [place] [address] Care Team Providers Care Financial Sales Assistant Name Role Phone Macario Bell MD Primary Care Provider + Reason for Visit * Reason Onset Date Comments Results 01/09/2016 Encounter Details Date Type Department Care Team (Late st Contact Info) Description 01/09/2016 Documentation [facility] [address] [facility] [address] [place] [address] Vandana Pavon CMA Results Social History Tobacco Use Types Packs/Day Years Used Date Smoking Tobacco: Never Alcohol Use Standard Drinks/Week Comments Yes 0 (1 standard drink = 0.6 oz pur e alcohol) occasional Sex and Gender Information Value Date Recorded Sex Assigned at Not on file Legal Sex Male 11:48 AM EDT Gender Identity Not on file Sexual Orientation Not on file documented as of this encounter Progress Notes * Vandana Pavon CMA - 01/09/2016 9:21 AM EST Called and requested the MRI disk and paper work for the pt to be faxed to us and I faxed the radiology department the [facility] with information and pt name/D.O.B to [phone] documented in this encounter Plan of Treatment Not on file documented as of this encounter Visit Diagnoses Not on filedocumented in this encounter Care Teams Financial Sales Assistant Relationship Specialty Start Date End Date Macario Bell MD PCP - General Family Medicine 01/08/16 documented as of this encounter
--- OUTSIDE RECORDS SUMMARY | 2024-01-25 15:18 | XMS_ITS | Encounter Summary ---
[facility] Address [address] [id number] Care Team Providers Care Tire Mounter Name Role Phone Macario Bell MD Primary Care Provider + Reason for Visit * Reason Onset Date Comments Med Refill 05/18/2016 Encounter Details Date Type Department Care Team (Late st Contact Info) Description 05/18/2016 Refill [facility] [address] [facility] [address] [place] [address] Vandana Pavon, [facility] Social History Tobacco Use Types Packs/Day Years [...] on filedocumented in this encounter Care Teams Tire Mounter Relationship Specialty Start Date End Date Macario Bell MD PCP - General Family Medicine 01/08/16 documented as of this encounter
--- OUTSIDE RECORDS SUMMARY | 2024-01-25 15:18 | XMS_ITS | Encounter Summary ---
Author Organization [facility] Address [address] [place] [address] Care Team Providers Care Ukrainian Folk Arts Instructor Name Role Phone Macario Bell MD Primary Care Provider + Reason for Visit * Reason Onset Date Comments MRI Results 01/09/2016 Encounter Details Date Type Department Care Team (Late st Contact Info) Description 01/09/2016 Documentation [facility] [address] [facility] [address] [place] [address] Vandana Pavon CMA MRI Results Social History Tobacco Use Types Packs/Day [...] Notes * Vandana Pavon CMA - 01/09/2016 11:01 AM EST There were no recent MRI's done on pt so no information to be obtained from Radiology at [facility]. No MRI since 2009 of the head and most recent was of the back documented in this encounter Plan of Treatment Not on file documented as of this encounter Visit Diagnoses Not on filedocumented in this encounter Care Teams Ukrainian Folk Arts Instructor Relationship Specialty Start Date End Date Macario Bell MD PCP - General Family Medicine 01/08/16 documented as of this encounter
[2024-01-25 15:21] LABS: Alanine Aminotransferase 25 U/L (12-78); Albumin/Globulin Ratio 1.3 (1.1-1.8); Alkaline Phosphatase 48 U/L (38-126); Aspartate Amino Transferase 27 U/L (17-59); Bilirubin,Total 0.7 mg/dl (0.2-1.3); Blood Urea Nitrogen 23 mg/dl (9-20); Calcium 9.3 mg/dl (8.4-10.2); Carbon Dioxide 25 mmol/L (22.0-30.0); Estimated Glomerular Filt Rate 49 ml/min (>60); GFR (African American) 60 ML/MIN (>60); Globulin 3.1 g/dL (1.3-3.2); Glucose 189 mg/dl (74-100); Total Protein,Serum 7.2 g/dl (6.3-8.2)
[2024-01-25 15:25] LABS: Creatinine Clearance Estimated 67 mL/min (50-200)
--- NOTE | 2024-01-25 15:45 | PC.NURSE ---
Don Wainscot PAC at bedside with staff to remove scoop stretcher, exam back & spine, and slide-sheet placed under pt for easy transfer to ct table.
--- NOTE | 2024-01-25 15:46 | PC.NURSE ---
Radiology her to continuous pickling line pickler for CT
--- NOTE | 2024-01-25 15:59 | PC.NURSE ---
pt to ct scan
[2024-01-25] MEDS: SODIUM CHLORIDE 0.9% 10ML SYR (RAD ONLY) 10 ML IV (16:20)
[2024-01-25] MEDS: IOPAMIDOL-370 (76%);100ML BOTTLE 160 ML IV (16:20)
[2024-01-25] MEDS: 0.9 % SODIUM CHLORIDE 50 ML VIAL 100 ML IV (16:20)
[2024-01-25] MEDS: LIDOCAINE 1% W/EPI 1:100,000 20ML VIAL 20 ML SQ (17:14)
[2024-01-25] MEDS: TET/DIPHTH/PERT-ADULT 0.5ML SYRINGE 0.5 ML IM (17:16)
[2024-01-25 18:58] VITALS: BP 136/56; PULSE 60; RESP 20; TEMP 36.8; O2SAT 95
== END 2024-01-25 19:00 | disposition home or self-care (01) ==
PROVIDERS: Physician Assistant; Emergency Provider Emergency Medicine; PCP Family Medicine
DX: S01.91XA Laceration without foreign body of unspecified part of head, initial encounter (principal); Z23 Encounter for immunization; W01.198A Fall on same level from slipping, tripping and stumbling with subsequent striking against other object, initial encounter; Y93.89 Activity, other specified; Y92.008 Other place in unspecified non-institutional (private) residence as the place of occurrence of the external cause
CPT/HCPCS: 70450; 70486; 70496; 70498; 71275; 72125; 72128; 72131; 72192; 74174; 80053; 85025; 85610; 90471; 90715; 93005; 96361; 96374; 99285; J0131; J7030; Q9967

== ENCOUNTER 2024-03-03 09:15 | Outpatient (CLI) | payer MEDICARE, SELFPAY ==
--- NOTE | 2024-03-03 09:22 | CT_ITS ---
FINAL REPORT TECHNIQUE: Multiple axial CT sections were performed from the foramen magnum to the vertex. Coronal and sagittal reformatted images were also obtained. Precontrast and postcontrast injection images were obtained. This study was performed with technique to keep radiation doses as low as reasonably achievable, (ALARA). Individualized dose reduction techniques using automated exposure control or adjustment of mA and/or kV according to the patient size were employed. CLINICAL HISTORY: DIZZINESS COMPARISON: 01/25/2024 FINDINGS: Changes of atrophy and chronic small vessel ischemic change remain present, stable when compared to the prior exam of December 2023. The right frontal scalp hematoma noted on the prior exam has resolved. There is no evidence of hemorrhage. No masses are identified. No extra-axial fluid collection is seen. The sinuses are normal without air-fluid levels. No osseous abnormality is seen on the bone window images. Postcontrast images demonstrate no abnormal enhancement. IMPRESSION: Atrophy and chronic small vessel ischemic change, stable when compared to the prior CT. No acute intracranial enhancement or abnormality identified. Reviewed, Interpreted and Dictated by Katelynn Quinn MD Transcribed by Cristela Chilel Authenticated and [facility]
[2024-03-03 09:46] LABS: Blood Urea Nitrogen 16 mg/dl (9-20); Estimated Glomerular Filt Rate 54 ml/min (>60); GFR (African American) 65 ML/MIN (>60)
[2024-03-03] MEDS: SODIUM CHLORIDE 0.9% 10ML SYR (RAD ONLY) 10 ML IV (10:21)
[2024-03-03] MEDS: IOPAMIDOL-300 (61%) 100ML VIAL 100 ML IV (10:21)
== END 2024-03-03 23:59 | disposition home or self-care (01) ==
LOC: RAD 09:18
PROVIDERS: PCP Family Medicine; Visit Provider Family Medicine
DX: R42 Dizziness and giddiness (principal); S09.90XA Unspecified injury of head, initial encounter
CPT/HCPCS: 36415; 70470; 82565; 84520; Q9967

== ENCOUNTER 2024-03-31 10:47 | Outpatient (RCR) | payer MEDICARE, SELFPAY ==
--- NOTE | 2024-03-31 14:18 | HMH.PTOPEV ---
PT Outpatient Evaluation Rehab PT Outpatient Evaluation Start: 03/31/24 11:04 Freq: Status: Active Protocol: Document 03/31/24 13:58 PHORNE (Rec: 03/31/24 14:18 PHORNE [id number]) E-signed By Manjinder Brown, PT Outpatient Therapy Subjective History Subjective History This is the initial PT eval for Reji Fernandez, 74 yowm who presents with c/o feeling dizzy and off balance x ~ 2 mos. He reports no vertigo symptoms and no positional changes that effect his symptoms. He reports intermittent dizziness that can last for hours to days at a time and states, it's never really gone all the way. He also has hx of multiple falls in the past 1-2 mos with unsteadiness on his feet. He has significant PMH that likely results in a multi- factorial cause of his symptoms consisting of B hearing loss ( states he refuses to wear hearing aids also), poor motor control of left eyelid, DM, CAD with stents x 3, BASIM, HTN (moved from 4 different HTN meds previously to 1 now), Dementia with CT scan showing chronic atrophy and small vessel ischemic changes, prior hx of CO poisoning. Chief Complaint Other Balance Eval Hx of Falls Hx Falls Yes Number in last 6 months 5 Gait/Posture Asssessment General Gait Observation Decrease Stride Lngth (R), Decrease Stride Lngth (L) Ankle/Foot Observation in Gait Swing Decreased Foot Clearance Nystagmus Nystagmus Presence None Timed Up and Go Test 1. Is the Timed Up and Go test result > yes or = to 12 seconds? Oculomotor Gaze Oculomotor Gaze Nml: Vergence Smooth Pursuit Cover/Uncover Abn: Saccades VOR Cancellation Cross Cover [place]omberg Feet Together/Eyes open/Stable Surface pass Feet Together/Eyes Closed/Stable Surface fail Feet Together/Eyes open/Unstable Surface fail Feet Together/Eyes Closed/Unstable fail Surface Dynamic Gait Index Test Protocol Gait Level Surface Mild Impairment Query Text: Instructions: Walk at your normal speed from here to the next natalya (20'). Grading: Natalya the lowest category that applies. Change in Gait Speed Mild Impairment Query Text: Instructions: Begin walking at your normal pace (for 5'), when I tell you go , walk as fast as you can (for 5'). When I tell you slow , walk as slowly as you can (for 5'). Grading: Natalya the lowest category that applies. Gait with Horizontal Head Turns Moderate Impairment Query Text: Instructions: Begin walking at your normal pace. When I tell you to look right , keep walking straight, but turn you head to the right. Keep looking to the right unit I tell you look left , then keep walking straight and turn your head to the left. Keep your head to the left until I tell you look straight , then keep walking straight, but return you head to the center. Grading: Natalya the lowest category that applies. Gait with Vertical Head Turns Moderate Impairment Query Text: Instructions: Begin walking at your normal pace. When I tell you to look up , keep walking staight, but tip your head up. Keep looking up until I tell you to look down , then keep walking straight and tip your head down. Keep your head down until I tell you look straight , then keep walking straight, but return your head to the center. Grading: Natalya the lowest category that applies. Gait and Pivot Turn Moderate Impairment Query Text: Instructions: Begin walking at your normal pace. When I tell you turn and stop , turn as quickly as you can to face the opposite direction and stop. Grading: Natalya the lowest category that applies. Step Over Obstacle Mild Impairment Query Text: Instructions: Begin walking at your normal speed. When you come to the shoebox, step over it, not around it and keep walking. Grading: Natalya the lowest category that applies. Step Around Obstacles Mild Impairment Query Text: Instructions: Begin walking at normal speed. When you come to the first cone (about 6' away), walk around the right side of it. When you come to the second cone (6' past first cone), walk around it to the left. Grading: Natalya the lowest category that applies. Steps Moderate Impairment Query Text: Instructions: Walk up these stairs as you would at home. At the top, turn around and walk down. Grading: Natalya the lowest category that applies. Scoring Dynamic Gait Index Score 12 Miscellaneous Dx PT Eval Objective Objective FTSTS= 21.7 sec TUG= 18 sec Outpatient Therapy Assessment Impairments Problems/Impairmments Impaired Endurance,Impaired Gait Pattern,Impaired Walking, Impaired Standing,Impaired Household Care,Impaired Stair Climbing,Impaired Balance, Impaired DGI Score,Impaired TUG Time,Impaired Self Care/ Self Management Prognosis Rehab Potential Fair Comment Skilled therapy is indicated to improve static and dynamic standing balance, improve gait pattern, decrease TUG, decrease FTSTS, and reduce dizziness in an effort to return pt to PLOF. Worsening dementia, possible neuropathy due to DM, and unknown baseline neurologic function are limiting factors for all care involving this patient. Clinical Impression Consistent with Diagnosis Yes Short Term Goals Number of Weeks 4 Improve Gait Pattern with Assistive Yes: Normal gait pattern with Device least restrictive AD Increase DGI Score Yes: at least 14/24 Decrease TUG Time Yes: 15 sec or less Patient to be Ind w/ HEP Yes Jail Goals Number of Weeks 8 Improve Gait Pattern without Assistive Yes: Normalized gait pattern Device without AD Increase DGI Score Yes: at least 18/24 Decrease TUG Time Yes: 12 sec or less Improve Self Care/Self Management Yes: FTSTS 17 sec or less Patient to be Ind w/ Advanced HEP Yes Outpatient Therapy Plan of Care Treatment Plan May Include Therapeutic Exercise Including Home Yes Exercise Program Manual Therapy Techniques Yes Neuromuscular Re-education Yes Therapeutic Activities to Return to Yes Previous Functional/Work Level Gait Training Yes ADL/Self Care Education Yes Orthotics/Bracing/Splinting Yes Eval/Re-Eval Yes Frequency Times per week 2-3 Duration Number of Weeks 8 Addendums This patient is a candidate for social No or vocational rehab? Patient/Guardian verbally acknowledges Yes understanding of treatment program and consents to further treatment? Patient/Guardian verbally acknowledges Yes understanding of diagnosis, prognosis and goals for treatment? Eval Complexity PT Charges 23949 - High Complexity Shoulder/Elbow Eval Shoulder Objective Measurements Elbow Objective Measurements PHYSICIAN CERTIFICATION: I certify the specified therapy services for Reji Fernandez are required, authorized, and reviewed every 30 days.
== END 2024-03-31 23:59 | disposition home or self-care (01) ==
LOC: PT 10:47
PROVIDERS: PCP Family Medicine; Visit Provider Specialist
DX: R42 Dizziness and giddiness (principal)
CPT/HCPCS: 97163

== ENCOUNTER 2024-04-10 11:42 | Outpatient (CLI) | payer MEDICARE, SELFPAY ==
[2024-04-10 12:43] LABS: Blood Urea Nitrogen 11 mg/dl (9-20); Estimated Glomerular Filt Rate 94 ml/min (>60); GFR (African American) 114 ML/MIN (>60)
[2024-04-11 08:12] LABS: PSA, Free 2.33 ng/mL; Prostate Specific Ag 5.9 ng/mL (0.0-4.0)
== END 2024-04-10 23:59 | disposition home or self-care (01) ==
LOC: LAB 11:44
PROVIDERS: PCP Family Medicine; Visit Provider Urology
DX: N40.0 Benign prostatic hyperplasia without lower urinary tract symptoms (principal); R97.20 Elevated prostate specific antigen [PSA]; R32 Unspecified urinary incontinence
CPT/HCPCS: 36415; 82565; 84153; 84154; 84520

== ENCOUNTER 2024-04-14 10:00 | Outpatient (RCR) | payer MEDICARE, SELFPAY | END 2024-04-14 23:59 | disposition home or self-care (01) | LOC: PT 10:00 | PROVIDERS: PCP Family Medicine; Visit Provider Specialist | DX: R42 Dizziness and giddiness (principal) | CPT/HCPCS: 97112; 97530 ==

== ENCOUNTER 2024-05-16 12:43 | Outpatient (CLI) | payer MEDICARE, SELFPAY ==
--- NOTE | 2024-05-16 12:47 | CT_ITS ---
FINAL REPORT TECHNIQUE: Thin section axial CT images with coronal and sagittal reformats were performed through neck after the administration of IV contrast. This study was performed with techniques to keep radiation doses as low as reasonably achievable, (ALARA). CLINICAL HISTORY: parotid FINDINGS: There are at least 3 nodules in the left parotid gland measuring up to 14 mm. There are at least 6 nodules in the right parotid gland with the largest, in the deep right parotid measuring 13 x 6 mm. Submandibular glands are normal. There are scattered, normal-sized jugular lymph nodes. The larynx is normal. The thyroid is mildly enlarged and contains an isodense mass posterior to the inferior left thyroid measuring up to 17 mm. This is suspicious for thyroid mass. However, evaluation and biopsy would be difficult due to intrathoracic location. IMPRESSION: 1. Multiple bilateral parotid nodules. Multiplicity and morphology suggest intraparotid lymph nodes which could be reactive or related to lymphoproliferative disorder. Other primary parotid tumor is considered less likely. If FNA is desired, ultrasound-guided FNA of the superficial lesion in the left lobe should be considered. 2. Mass posterior to the left thyroid is probably of thyroid origin. Although, biopsy would be difficult due to location. 3. No extraparotid adenopathy seen. Reviewed, Interpreted and Dictated by Shelby Bullock MD Transcribed by Karyn Campbell Authenticated and [facility]
[2024-05-16 13:19] LABS: Blood Urea Nitrogen 8 mg/dl (9-20); Estimated Glomerular Filt Rate 82 ml/min (>60); GFR (African American) 100 ML/MIN (>60)
[2024-05-16] MEDS: SODIUM CHLORIDE 0.9% 10ML SYR (RAD ONLY) 10 ML IV (13:38)
[2024-05-16] MEDS: IOPAMIDOL-370 (76%);100ML BOTTLE 75 ML IV (13:38)
== END 2024-05-16 23:59 | disposition home or self-care (01) ==
LOC: RAD 12:44
PROVIDERS: PCP Family Medicine; Visit Provider Otolaryngology
DX: K11.8 Other diseases of salivary glands (principal)
CPT/HCPCS: 36415; 70491; 82565; 84520; Q9967

== ENCOUNTER 2024-07-31 10:52 | Outpatient (POV) | payer MEDICARE, SELFPAY ==
[2024-07-31 11:11] VITALS: BP 140/64; PULSE 71; RESP 18; O2SAT 96; BMI 37.3
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
== END 2024-07-31 23:59 | disposition home or self-care (01) ==
LOC: SC.PAIN 10:55
PROVIDERS: PCP Family Medicine; Visit Provider Nurse Practitioner Family
DX: M47.816 Spondylosis without myelopathy or radiculopathy, lumbar region (principal); M51.370 Other intervertebral disc degeneration, lumbosacral region with discogenic back pain only
CPT/HCPCS: 99202; G0463

== ENCOUNTER 2024-08-15 08:05 | Day surgery (SDC) | payer MEDICARE, SELFPAY ==
[2024-08-15 08:20] VITALS: BP 139/58; PULSE 68; RESP 16; TEMP 36.6; O2SAT 95; BMI 36.8
--- NOTE | 2024-08-15 08:28 | P.PCN_ITS ---
Procedure Date: 08/15/24 Time: 08:20 Anesthesiologist:: Mayank Angela CRNA Complications:: None Pre-procedure Diagnosis:: Of disc lumbar spine multilevels. Lumbar radiculopathy. Lumbar spondylosis. Multilevel lumbar facet arthropathy. Lumbar postlaminectomy syndrome. Post-procedure Diagnosis:: Same. Indications for Procedure:: This patient is a pleasant 74-year-old male who comes our clinic today for ROUND ONE of bilateral lumbar medial branch blocks/facet injections at the L4-5, L5-S1 level. Patient describes low lumbar back pain as constant, dull, aching. He reports pain into the hips bilaterally. He rates his pain 7/10. Procedure Details:: Informed consent was obtained and the risk and benefits of the procedure was explained to the patient. Patient was taken to the procedure room where noninvasive monitors were placed, including noninvasive blood pressure cuff as well as pulse oximeter. The area over the lumbar spine was cleansed using chlorhexidine as a cleansing solution. I anesthetized the skin and subcutaneous tissues with 1% Lidocaine. I placed 22-gauge spinal needles into the facet joint/ medial branches of L4-L5, and L5-S1] bilaterally. Needle placement was confirmed with fluoroscopy. After confirmation of needle placement, each site was injected with 1 mL of 1% lidocaine and 0.25 % Marcaine and 10 mg of Depo- Medrol. A total of 80 mg of depo medrol was used for bilateral medial branch blocks of L4-L5, and L5-S1] bilaterally. Patient tolerated the procedure without difficulty. There were no complications. Plan and Disposition:: Patient was discharged without incident.
[2024-08-15] MEDS: LIDOCAINE 1% 5ML PF VIAL 5 ML (08:31)
[2024-08-15] MEDS: DEXAMETHASONE 10MG/ML 1ML VIAL 10 MG (08:31)
[2024-08-15] MEDS: BUPIVACAINE 0.25% 10ML INJ 25 MG IJ (08:31)
[2024-08-15 08:32] VITALS: BP 136/92; PULSE 77; RESP 18; O2SAT 96
[2024-08-15 08:35] VITALS: BP 136/92; PULSE 77; RESP 18; O2SAT 96
[2024-08-15 08:39] VITALS: BP 130/62; PULSE 67; RESP 18; O2SAT 97
== END 2024-08-15 08:39 | disposition home or self-care (01) ==
PROVIDERS: PCP Family Medicine; Visit Provider Nurse Anesthetist, Certified Registered
DX: M47.816 Spondylosis without myelopathy or radiculopathy, lumbar region (principal); M47.26 Other spondylosis with radiculopathy, lumbar region; M51.360 Other intervertebral disc degeneration, lumbar region with discogenic back pain only; M96.1 Postlaminectomy syndrome, not elsewhere classified; G47.33 Obstructive sleep apnea (adult) (pediatric); E78.5 Hyperlipidemia, unspecified; I10 Essential (primary) hypertension; I25.10 Atherosclerotic heart disease of native coronary artery without angina pectoris; F03.90 Unspecified dementia, unspecified severity, without behavioral disturbance, psychotic disturbance, mood disturbance, and anxiety; Z86.711 Personal history of pulmonary embolism; Z87.891 Personal history of nicotine dependence; Z79.82 Long term (current) use of aspirin; Z79.899 Other long term (current) drug therapy; Z79.02 Long term (current) use of antithrombotics/antiplatelets; Z79.84 Long term (current) use of oral hypoglycemic drugs
CPT/HCPCS: 64493; 64494; J0665; J1100; J2003

== ENCOUNTER 2024-09-04 09:29 | Outpatient (POV) | payer MEDICARE, SELFPAY ==
--- OUTSIDE RECORDS SUMMARY | 2024-09-04 09:33 | XMS_ITS | Encounter Summary ---
Author Organization [employer] ([place], [place], [place], [place]) Address [address] [place] [address] Care Team Providers Care Slackman Name Role Phone Unavailable Primary Care Provider Unavailabl e Encounter Details Date Type Department Care Team (Late st Contact Info) Description 03/07/2018 Transcribed Document [facility] – [place] Family Medicine [facility] [place] [address] ProviderSarah [place] [address] Social History Tobacco Use Types Packs/Day Years Used Date Smoking Tobacco: Never Assessed Sex and Gender Information Value Date Recorded Sex Assigned at Not on file Legal Sex Male 1:22 PM CDT Gender Identity Not on file Sexual Orientation Not on file documented as of this encounter Miscellaneous Notes * Cerner Conversion Note - Sarah ProviderMD - 03/07/2018 10:08 AM DYNAMITE CARTRIDGE CRIMPER Discharge Instructions Entered On: 03/07/2018 10:09 EST [...] 03/07/2018 10:08 EST Electronically signed by Elver [facility] Conversion Batch Weigher Cerner at 06/17/2022 7:55 PM CDT documented in this encounter Plan of Treatment Not on file documented as of this encounter Visit Diagnoses Not on filedocumented in this encounter
--- OUTSIDE RECORDS SUMMARY | 2024-09-04 09:33 | XMS_ITS | Encounter Summary ---
Author Organization [employer] ([place], [place], [place], [place]) Address [address] [place] [address] Care Team Providers Care Crosscutter Name Role Phone Unavailable Primary Care Provider Unavailabl e Encounter Details Date Type Department Care Team (Late st Contact Info) Description 03/07/2018 Transcribed Document [facility] – [place], [place] Family Medicine [address] [place] [address] ProviderSarah MD [address] [place] [address] Social History Tobacco Use Types Packs/Day Years Used Date Smoking Tobacco: Never Assessed Sex and Gender Information Value Date Recorded Sex Assigned at Not on file Legal Sex Male 1:22 PM CDT Gender Identity Not on file Sexual Orientation Not on file documented as of this encounter Miscellaneous Notes * [employer]ner Conversion Note - Sarah Rizo MD - 03/07/2018 11:22 AM AGRICULTURAL SALES REPRESENTATIVE Patient Education Materials Follows: Radial Site Care [...] you are awake and alert. ??? Take [id number] and prescription medicines only as told by [...] 12/06/2013 Document Revised: 07/20/2016 Document Reviewed: 06/06/2016 Elsevier Interactive Patient Education ? 2017 [employer] Radiology Angiogram, Care After Refer to [...] 07/19/2013 Else[employer] Interactive Patient Education ? 2017 [employer] Electronically signed by Kandice Raya Conversion Hvac Technician Residential Ana Cristina at 06/17/2022 7:34 PM CDT documented in this encounter Plan of Treatment Not on file documented as of this encounter Visit Diagnoses Not on filedocumented in this encounter
--- OUTSIDE RECORDS SUMMARY | 2024-09-04 09:33 | XMS_ITS | Encounter Summary ---
Author Organization [facility] Address [address] [place] [address] Care Team Providers Care Single Needle Tufting Machine Operator Name Role Phone Macario Bell MD Primary Care Provider [phone] Encounter Details Date Type Department Care Team (Late st Contact Info) Description 08/16/2024 Telephone [facility] Urology [address] [place] [address] [place] [address] Social History Tobacco Use Types Packs/Day Years Used Date Smoking Tobacco: Former Sex and Gender Information Value Date Recorded Sex Assigned at Not on file Legal Sex Male 8:38 PM EDT Gender Identity Not on file Sexual Orientation Not on file documented as of this encounter Miscellaneous Notes * Telephone Encounter - Ni Cabrera - 08/16/2024 9:04 AM EDT Patient is on urology referral triage, sent fax to Ilia Arriaga MD urologist for records to be sent to our office. [phone].Ni Cabrera RN documented in this encounter Plan of Treatment Upcoming Encounters Date Type Department Care Team (Late st Contact Info) Description 10/03/2024 10:00 AM EDT Consult [facility] Urology [address] [place] [address] Macario Gan MD [address] [place] [address] documented as of this encounter Visit Diagnoses Not on filedocumented in this encounter Care Teams Single Needle Tufting Machine Operator Relationship Specialty Start Date End Date Macario Bell MD [address] [place] [address] PCP - General 07/12/20 documented as of this encounter
--- OUTSIDE RECORDS SUMMARY | 2024-09-04 09:33 | XMS_ITS | Encounter Summary ---
Author Organization [facility] Address [address] [place] [address] Care Team Providers Care Marine Engineering Consultant Name Role Phone Macario Bell MD Primary Care Provider [phone] Encounter Details Date Type Department Care Team (Late st Contact Info) Description 06/15/2023 Orders Only External Location [address] [place] [address] Provider, External Social History Tobacco Use Types Packs/Day Years Used Date Smoking Tobacco: Former Sex and Gender Information Value Date Recorded Sex Assigned at Not on file Legal Sex Male 8:38 PM EDT Gender Identity Not on file Sexual Orientation Not on file documented as of this encounter Plan of Treatment Upcoming Encounters Date Type Department Care Team (Late st Contact Info) Description 10/03/2024 10:00 AM EDT Consult [facility] Urology [address] [place] [address] Macario Gan MD [address] [place] [address] documented as of this encounter Procedures Procedure Name Priority Date/Time Associated Diagnosis Comments MR OUTSIDE IMAGES 06/15/2023 11:52 AM EDT documented in this encounter Results * MR transfer of outside films (06/15/2023 11:52 AM EDT) Anatomical Region Laterality Modality Magnetic Resonan ce 06/15/2023 11:5 2 AM EDT us External Provider IMG MRI PROCEDURES Final Resul t documented in this encounter Visit Diagnoses Not on filedocumented in this encounter Care Teams Marine Engineering Consultant Relationship Specialty Start Date End Date Macario Bell MD [address] [place] [address] PCP - General 07/12/20 documented as of this encounter
--- OUTSIDE RECORDS SUMMARY | 2024-09-04 09:33 | XMS_ITS | Encounter Summary ---
Author Organization [facility] Address [address] [place] [address] Care Team Providers Care Transliterator Name Role Phone Macario Bell MD Primary Care Provider [phone] Reason for Visit * Reason Onset Date Comments vd Records 08/16/2024 Encounter Details Date Type Department Care Team (Late st Contact Info) Description 08/16/2024 Telephone [facility] Urology [address], [address] [place] [id number] Ni Cabrera [place] [id number] [facility] Records Social History Tobacco Use Types Packs/Day Years Used Date Smoking Tobacco: Former Sex and Gender Information Value Date Recorded Sex Assigned at Not on file Legal Sex Male 8:38 PM EDT Gender Identity Not on file Sexual Orientation Not on file documented as of this encounter Miscellaneous Notes * Telephone Encounter - Ashley Groves - 09/04/2024 7:47 AM EDT Uploaded Referral Records from [facility] * Telephone Encounter - Amna Hopper - 08/18/2024 4:34 PM EDT MRI prostate report from 06/15/23 was received and uploaded to media. * Telephone Encounter - Ni Cabrera - 08/16/2024 9:16 AM EDT Patient is on referral triage, sent fax to [facility], , for MRI of prostate report. Ni Cabrera RN documented in this encounter Plan of Treatment Upcoming Encounters Date Type Department Care Team (Late st Contact Info) Description 10/03/2024 10:00 AM EDT Consult [facility] Urology [address] [place] [address] Macario Gan MD [address] [facility] [address] [place] [address] documented as of this encounter Visit Diagnoses Not on filedocumented in this encounter Care Teams Transliterator Relationship Specialty Start Date End Date Macario Bell MD [address] [place] [address] PCP - General 07/12/20 documented as of this encounter
--- OUTSIDE RECORDS SUMMARY | 2024-09-04 09:33 | XMS_ITS | Referral Summary ---
Author Organization [employer] ([place], [place], [place], [place]) Address [address] [place] [address] Care Team Providers Care It Generalist Name Role Phone Unavailable Primary Care Provider [...]
--- OUTSIDE RECORDS SUMMARY | 2024-09-04 09:33 | XMS_ITS | Encounter Summary ---
Author Organization [employer] ([place], [place], [place]) Address [address] [place] [address] Care Team Providers Care Structural Steel Equipment Erector Name Role Phone Unavailable Primary Care Provider Unavailabl e Encounter Details Date Type Department Care Team (Late st Contact Info) Description 03/07/[address] [facility] Family Medicine [facility] [place] [address] ProviderSarah MD [place] [address] Social History Tobacco Use Types Packs/Day Years Used Date Smoking Tobacco: Never Assessed Sex and Gender Information Value Date Recorded Sex Assigned at Not on file Legal Sex Male 1:22 PM CDT Gender Identity Not on file Sexual Orientation Not on file documented as of this encounter Miscellaneous Notes * Cerner Conversion Note - Historical ProviderMD - 03/07/2018 10:07 AM ASSISTANT MANAGER Nursing Discharge Summary Entered On: 03/07/2018 10:08 EST Performed On: 03/07/2018 10:07 EST by Yeni Shields back tacker Documentation Discharge Date/Time : 03/07/2018 12:15 EST Yeni Shields RN - 03/07/2018 12:18 EST Patient Disposition, General : Discharge Discharge To : Home with ambulatory/outpatient follow-up Yeni Shields RN - 03/07/2018 10:07 EST Mode Of Departure, General Discharge : Private vehicle, Wheelchair with adult Yein Shields RN - 03/07/2018 12:18 EST Accompanied By, Discharge : Spouse IV Discontinued : Yes Personal Belongings With Patient : Yes Prescriptions Given to Patient : Electronically sent Discharge Instructions Reviewed With, Opportunity For Questions Given : Patient, Spouse Patient Education Completed : Yes Teaching Method : Explanation Teaching Evaluation : Returns demonstration, Verbalizes understanding Yeni Shields RN - 03/07/2018 10:07 EST Electronically signed by [facility] Conversion Lap Machine Operator Cerner at 06/17/2022 7:43 PM CDT documented in this encounter Plan of Treatment Not on file documented as of this encounter Visit Diagnoses Not on filedocumented in this encounter
--- OUTSIDE RECORDS SUMMARY | 2024-09-04 09:33 | XMS_ITS | Encounter Summary ---
Author Organization [employer] ([place], [place], [place], [place]) Address [address] [place] [address] Care Team Providers Care Ore Sampler Name Role Phone Unavailable Primary Care Provider Unavailabl e Encounter Details Date Type Department Care Team (Late st Contact Info) Description 03/07/2018 Transcribed Document [facility] [place] Medicine [facility] [place] [address] ProviderSarah MD [facility] [place] [address] Social History Tobacco Use Types Packs/Day Years Used Date Smoking Tobacco: Never Assessed Sex and Gender Information Value Date Recorded Sex Assigned at Not on file Legal Sex Male 1:22 PM CDT Gender Identity Not on file Sexual Orientation Not on file documented as of this encounter Miscellaneous Notes * Cerner Conversion Note - Sarah ProviderMD - 03/07/2018 10:09 AM CELL SUPPORT OPERATOR [address] , [place] [phone] Patient Copy Patient Information: Name: APOLONIA FERNANDEZ V Current Date: 03/07/2018 10:09:44 : 1950 Patient Address: [address] [place] [address] [facility] [address] Patient Attending Physician: PENNY LA MD-CAR Primary Care Provider: TENZIN RICARDO MD-[facility] Primary Care Provider Discharge Diagnosis: Weight on Admission: 261 lb, 0 oz Comment: Follow-up Instructions: With: Address: When: [place] [address] [place] [address], [address] [place] [phone] Business (1) Within 1 month Discharge Instructions: [...] 09/03/2005 Document Revised: 07/23/2016 Document Reviewed: 07/19/2013 Just [employer] Interactive Patient Education ? 2017 Just Eat Inc. Radial Site Care Introduction Refer to [...] you are awake and alert. ??? Take imst-tzt-xrqtrqn and prescription medicines only as told by [...] 12/06/2013 Document Revised: 07/20/2016 Document Reviewed: 06/06/2016 Just Eat Interactive Patient Education ? 2017 [employer] Inc. Medication Leaflets: ranolazine (ra CHARLENE nice) [...] following drugs: ? clarithromycin; ?? nefazodone; ?? Doerun's wort; ?? antifungal medicine--itraconazole, ketoconazole; ?? HIV [...] may report side effects to FDA at 0-171-DOI-9470. What other drugs will affect ranolazine? Many [...] interact with ranolazine. This includes prescription and qftg-lto-bwtrjxf medicines, vitamins, and herbal products. Give a [...] to ensure that the information provided by [employer]. ('Multum') is accurate, up-to-date, and complete, but no guarantee is made to that effect. Drug information contained herein may be time sensitive. payworks information has been compiled for use by healthcare practitioners and consumers in the [place] and therefore payworks does not warrant that uses outside of the [place] are appropriate, unless specifically indicated otherwise. payworks's drug information does not endorse drugs, diagnose patients or recommend therapy. [employer] drug information is an informational resource designed [...] effective or appropriate for any given patient. payworks does not assume any responsibility for any aspect of healthcare administered with the aid of information payworks provides. The information contained herein is not intended to cover all possible uses, directions, precautions, warnings, drug interactions, allergic reactions, or adverse effects. If you have questions about the drugs you are taking, check with your doctor, nurse or pharmacist. Copyright 5804-3432 [facility]. Version: 12.30. Revision Date: 04/18/2015. CIGARETTE SMOKING: The facts are clear, cigarette smoking will shorten your life. Smoking can cause many illnesses along the way. As a healthcare provider, we recommend that you stop smoking. Assistance with quitting is available by contacting 7-430-DGIY-NOW. This is a free resource providing counseling, [...] Be sure to sign up for the [employer] patient portal, which gives you 21/09 access to your medical information ??? including these discharge instructions ??? using your computer, smartphone, or tablet. Just go to Visualnet to get started. Questions? Call . [facility] would like to thank you for allowing us to assist you with your healthcare needs. CONSUELO Solano ROY V, (or arborist representative) have received the above patient education materials/instructions and have verbalized understanding: Patient Signature _ Date/Time Patient Buildings And Grounds Coordinator Signature (if needed) Date/Time Clinician/Hospital Buildings And Grounds Coordinator Signature (if needed) Date/Time documented in this encounter Plan of Treatment Not on file documented as of this encounter Visit Diagnoses Not on filedocumented in this encounter
--- OUTSIDE RECORDS SUMMARY | 2024-09-04 09:33 | XMS_ITS | Encounter Summary ---
Author Organization [employer] ([place], [place], [place], [place]) Address [address] [place] [address] Care Team Providers Care Motion Picture Narrator Name Role Phone Unavailable Primary Care Provider Unavailabl e Encounter Details Date Type Department Care Team (Late st Contact Info) Description 03/07/2018 Transcribed Document [facility] Family Medicine [facility] [place] [address] ProviderSarah MD [place] [address] Social History Tobacco Use Types Packs/Day Years Used Date Smoking Tobacco: Never Assessed Sex and Gender Information Value Date Recorded Sex Assigned at Not on file Legal Sex Male 1:22 PM CDT Gender Identity Not on file Sexual Orientation Not on file documented as of this encounter Miscellaneous Notes * Cerner Conversion Note - Sarah ProviderMD - 03/07/2018 10:12 AM [address] , [place] [phone] Patient Copy Patient Information: Name: APOLONIA FERNANDEZ V Current Date: 03/07/2018 10:12:49 : 1950 Patient Address: [address] [place] [address] [facility] [address] Patient Attending Physician: PENNY LA MD-CAR Primary Care Provider: TENZIN RICARDO MD-[facility] Primary Care Provider Discharge Diagnosis: Weight on Admission: 261 lb, 0 oz Comment: Follow-up Instructions: With: Address: When: [place] [address] [place] [address], [address] [place] [address] Business (1) 10:15 AM Discharge Instructions: Diet [...] 09/03/2005 Document Revised: 07/23/2016 Document Reviewed: 07/19/2013 [employer] Interactive Patient Education ? 2017 Pro[employer] Inc. Radial Site Care Introduction Refer to [...] you are awake and alert. ??? Take dklo-dln-dqflxug and prescription medicines only as told by [...] 12/06/2013 Document Revised: 07/20/2016 Document Reviewed: 06/06/2016 [employer] Interactive Patient Education ? 2017 [facility]. Medication Leaflets: ranolazine (ra CHARLENE nice) Ranexa [...] may report side effects to FDA at 3-032-IBO-0333. What other drugs will affect ranolazine? Many [...] interact with ranolazine. This includes prescription and gkur-hwm-wbducol medicines, vitamins, and herbal products. Give a [...] to ensure that the information provided by [employer]. ('Multum') is accurate, up-to-date, and complete, but no guarantee is made to that effect. Drug information contained herein may be time sensitive. [employer] information has been compiled for use by healthcare practitioners and consumers in the [place] and therefore [employer] does not warrant that uses outside of the [place] are appropriate, unless specifically indicated otherwise. [employer]'s drug information does not endorse drugs, diagnose patients or recommend therapy. i[employer]umas drug information is an informational resource designed [...] effective or appropriate for any given patient. [employer] does not assume any responsibility for any aspect of healthcare administered with the aid of information [employer] provides. The information contained herein is not intended to cover all possible uses, directions, precautions, warnings, drug interactions, allergic reactions, or adverse effects. If you have questions about the drugs you are taking, check with your doctor, nurse or pharmacist. Copyright [facility], Inc. Version: 12.30. Revision Date: 04/18/2015. CIGARETTE SMOKING: The facts are clear, cigarette smoking will shorten your life. Smoking can cause many illnesses along the way. As a healthcare provider, we recommend that you stop smoking. Assistance with quitting is available by contacting 8-986-QHXP-NOW. This is a free resource providing counseling, [...] Be sure to sign up for the [employer] patient portal, which gives you 21/09 access to your medical information ??? including these discharge instructions ??? using your computer, smartphone, or tablet. Just go to [employer] to get started. Questions? Call . [facility] would like to thank you for allowing us to assist you with your healthcare needs. CONSUELO Solano ROY V, (or policy services representative) have received the above patient education materials/instructions and have verbalized understanding: Patient Signature _ Date/Time Patient Special Education Educational Assistant Signature (if needed) Date/Time Clinician/Hospital Special Education Educational Assistant Signature (if needed) Date/Time documented in this encounter Plan of Treatment Not on file documented as of this encounter Visit Diagnoses Not on filedocumented in this encounter
--- OUTSIDE RECORDS SUMMARY | 2024-09-04 09:33 | XMS_ITS | Encounter Summary ---
Author Organization [facility] Address [address] [place] [address] Care Team Providers Care Band Presser Name Role Phone Macario Bell MD Primary Care Provider [phone] Encounter Details Date Type Department Care Team (Late st Contact Info) Description 08/15/2024 Telephone [facility] Urology [address] [place] [address] [place] [address] Social History Tobacco Use Types Packs/Day Years Used Date Smoking Tobacco: Former Sex and Gender Information Value Date Recorded Sex Assigned at Not on file Legal Sex Male 8:38 PM EDT Gender Identity Not on file Sexual Orientation Not on file documented as of this encounter Miscellaneous Notes * Telephone Encounter - Ni Cabrera - 08/15/2024 1:35 PM EDT Patient is on urology referral triage, called patient to get more info in regards to MRI done in 05/2023, no answer, left a detailed message to return my call. Referring office does not know where theMRI was done. Ni Cabrera RN documented in this encounter Plan of Treatment Upcoming Encounters Date Type Department Care Team (Late st Contact Info) Description 10/03/2024 10:00 AM EDT Consult [facility] Urology [address] [place] [address] Macario Gan MD [address] [place] [address] documented as of this encounter Visit Diagnoses Not on filedocumented in this encounter Care Teams Band Presser Relationship Specialty Start Date End Date Macario Bell MD [address] [place] [address] PCP - General 07/12/20 documented as of this encounter
--- OUTSIDE RECORDS SUMMARY | 2024-09-04 09:33 | XMS_ITS | Encounter Summary ---
Author Organization [employer] ([place], [place], [place], [place]) Address [address] [place] [address] Care Team Providers Care Medical Staffing Coordinator Name Role Phone Unavailable Primary Care Provider Unavailabl e Reason for Visit * Reason Comments Medication Refill Encounter Details Date Type Department Care Team (Late st Contact Info) Description 05/18/2022 Refill [facility] Cardiology [address] [place] [address] Jhonatan Jung MD [address] [facility] [address] [place] [address] Social History Tobacco Use Types Packs/Day Years [...]
--- OUTSIDE RECORDS SUMMARY | 2024-09-04 09:33 | XMS_ITS | Encounter Summary ---
Author Organization [facility] Address [address] [place] [address] Care Team Providers Care Hotel Clerk Name Role Phone Macario Bell MD Primary Care Provider [phone] Encounter Details Date Type Department Care Team (Late st Contact Info) Description 11/17/2018 Orders Only External Location [address] [place] [address] Eduardo Mir MD [address] [place] [address] Social History Tobacco Use Types Packs/Day Years [...] Info) Description 10/03/2024 10:00 AM EDT Consult [facility] [address] [place] [address] Macario Gan MD [address] [place] [address] documented as of this encounter Procedures Procedure Name Priority Date/Time Associated Diagnosis Comments MR OUTSIDE IMAGES 11/17/2018 3:33 PM EDT documented in this encounter Results * MR transfer of outside films (11/17/2018 3:33 PM EDT) Anatomical Region Laterality Modality Magnetic Resonan ce 11/17/2018 3:33 PM EDT us Eduardo Mir MD IMG MRI PROCEDURES Final Resu lt documented in this encounter Visit Diagnoses Not on filedocumented in this encounter Care Teams Hotel Clerk Relationship Specialty Start Date End Date Macario Bell MD [address] [facility] [address] PCP - General 07/12/20 documented as of this encounter
--- OUTSIDE RECORDS SUMMARY | 2024-09-04 09:33 | XMS_ITS | Encounter Summary ---
Author Organization [employer] ([place], [place], [place], [place]) Address [address] [place] [address] Care Team Providers Care Tablet Making Machine Operator Helper Name Role Phone Unavailable Primary Care Provider Unavailabl e Encounter Details Date Type Department Care Team (Late st Contact Info) Description 03/07/2018 Transcribed Document [facility] [facility] [place] [address] ProviderSarah MD [facility] [place] [address] Social History Tobacco Use Types Packs/Day Years Used Date Smoking Tobacco: Never Assessed Sex and Gender Information Value Date Recorded Sex Assigned at Not on file Legal Sex Male 1:22 PM CDT Gender Identity Not on file Sexual Orientation Not on file documented as of this encounter Miscellaneous Notes * Cerner Conversion Note - Sarah ProviderMD - 03/07/2018 11:22 AM ELECTRONIC EQUIPMENT SET UP OPERATOR [address] , [place] [phone] Patient Copy Patient Information: Name: APOLONIA FERNANDEZ V Current Date: 03/07/2018 11:22:13 : 1950 Patient Address: [address] [place] [address] [facility] [address] Patient Attending Physician: PENNY LA MD-CAR Primary Care Provider: TENZIN RICARDO MD-[facility] Primary Care Provider Discharge Diagnosis: Weight on Admission: 261 lb, 0 oz Comment: Follow-up Instructions: With: Address: When: [place] [address] [place] [address], [address] [place] [address] Business (1) 10:15 AM Discharge Instructions: Diet [...] 09/03/2005 Document Revised: 07/23/2016 Document Reviewed: 07/19/2013 [employer] Interactive Patient Education ? 2017 [employer] Inc. Radial Site Care Introduction Refer to [...] you are awake and alert. ??? Take uqwg-ycg-fpopyyz and prescription medicines only as told by [...] 12/06/2013 Document Revised: 07/20/2016 Document Reviewed: 06/06/2016 [employer] Interactive Patient Education ? 2017 [employer]. Medication Leaflets: ranolazine (ra CHARLENE nice) Ranexa [...] may report side effects to FDA at 9-883-HOM-7787. What other drugs will affect ranolazine? Many [...] interact with ranolazine. This includes prescription and jsro-lmw-sabpggx medicines, vitamins, and herbal products. Give a [...] to ensure that the information provided by [employer]. ('Multum') is accurate, up-to-date, and complete, but no guarantee is made to that effect. Drug information contained herein may be time sensitive. [employer] information has been compiled for use by healthcare practitioners and consumers in the [place] and therefore [employer] does not warrant that uses outside of the [place] are appropriate, unless specifically indicated otherwise. [employer]'s drug information does not endorse drugs, diagnose patients or recommend therapy. [employer] drug information is an informational resource designed [...] effective or appropriate for any given patient. [employer] does not assume any responsibility for any aspect of healthcare administered with the aid of information [employer] provides. The information contained herein is not intended to cover all possible uses, directions, precautions, warnings, drug interactions, allergic reactions, or adverse effects. If you have questions about the drugs you are taking, check with your doctor, nurse or pharmacist. Copyright [facility]Comm, Inc. Version: 12.30. Revision Date: 04/18/2015. CIGARETTE SMOKING: The facts are clear, cigarette smoking will shorten your life. Smoking can cause many illnesses along the way. As a healthcare provider, we recommend that you stop smoking. Assistance with quitting is available by contacting 5-071-HDZG-NOW. This is a free resource providing counseling, [...] Be sure to sign up for the [employer] patient portal, which gives you 21/09 access to your medical information ??? including these discharge instructions ??? using your computer, smartphone, or tablet. Just go to Zauber to get started. Questions? Call . [facility] would like to thank you for allowing us to assist you with your healthcare needs. CONSUELO Solano ROY V, (or solar manufacturer's representative) have received the above patient education materials/instructions and have verbalized understanding: Patient Signature _ Date/Time Patient Client Services Representative Signature (if needed) Date/Time Clinician/Hospital Client Services Representative Signature (if needed) Date/Time documented in this encounter Plan of Treatment Not on file documented as of this encounter Visit Diagnoses Not on filedocumented in this encounter
--- OUTSIDE RECORDS SUMMARY | 2024-09-04 09:33 | XMS_ITS | Clinical Summary ---
Author Organization [facility] Address [address] [id number] Care Team Providers Care Induction Brazer Name Role Phone Macario Bell MD Primary Care Provider [phone] Encounters Date Type Department Care Team Description 08/16/2024 Telephone [facility] [address] [place] [address] Ni Cabrera Rcvd Records 08/16/2024 Telephone [facility] [address] [place] [address] Ni Cabrera 08/15/2024 Telephone [facility] [address] [place] [address] Ni Cabrera from Last 3 Months Family History Medical History Relation Name Comments Cirrhosis Other 1 Lung cancer Other 2 Relation Name Status Comments Other 1 Other 2 Social History Tobacco Use Types Packs/Day Years Used Date Smoking Tobacco: Former Sex and Gender Information Value Date Recorded Sex Assigned at Not on file Legal Sex Male 8:38 PM EDT Gender Identity Not on file Sexual Orientation Not on file Last Filed Vital Signs Vital Sign Reading Time Taken Comments Blood Pressure 134/80 01/03/2019 8:30 AM EST Pulse - - Temperature - - Respiratory Rate - - Oxygen Saturation - - Inhaled Oxygen Concentration - - Weight 122 kg (268 lb 1.3 oz) 01/03/2019 8:30 AM EST Height 167.6 cm (5' 6 ) 01/03/2019 8:30 AM EST Body Mass Index 43.27 01/03/2019 8:30 AM EST Plan of Treatment Upcoming Encounters Date Type Department Care Team (Late st Contact Info) Description 10/03/2024 10:00 AM EDT Consult [facility] [address] [place] [address] Macario Gan MD [address] [place] [address] Health Maintenance Due Date Last Done Comments [facility]-Depression Screening 1950 [facility]-Hepatitis C Screening 1950 [facility]-Medicare Annual Wellness (AWV) 1950 [facility]-/Child/Adol SDOH Screenings 1950 [facility]- SDOH Screenings 1967 [facility]-Adult SDOH Screenings 1967 CT Colonography 1994 Colonoscopy 1994 FIT-DNA 1994 FIT 1994 FOBT 1994 Sigmoidoscopy 1994 [facility]-Colorectal Cancer Screening 1994 [facility]-Pneumococcal Vaccine: 50+ Years (1 of 1 - PCV) 1999 [facility]-Zoster Vaccines (1 of 2) 1999 [facility]-RSV Vaccine: 60+ Years or (1 - 1-dose 75+ series) 01/07/2024 [id number] Vaccine ( - season) 2024 12/17/2023, 01/29/2021, 05/08/2020, Additional history exists [facility]-Influenza Vaccine (#1) 10/30/202412/16, 12/29/2018, 12/05/2015 [facility]-DTaP,Tdap,and Td Vaccines (2 - Td or Tdap) 01/24/2034 01/25/2024 [facility]-Hepatitis A Vaccines Aged Out 03/20/2018 No longer eligible based on patient's age to complete this topic HPV Vaccines Aged Out No longer eligi ble based on patient's age to complete this topic [facility]-HIB Vaccines Aged Out No longer e ligible based on patient's age to complete this topic [facility]-IPV Vaccines Aged Out No longer e ligible based on patient's age to complete this topic [facility]-Rotavirus Vaccines Aged Out No lo nger eligible based on patient's age to complete this topic Insurance MEDICARE Care Teams Induction Brazer Relationship Specialty Start Date End Date Macario Bell MD [address] [facility] [facility] [address] PCP - General 07/12/20
--- OUTSIDE RECORDS SUMMARY | 2024-09-04 09:33 | XMS_ITS | Encounter Summary ---
Author Organization [employer] ([place], [place], [place], [place]) Address [address] [place] [address] Care Team Providers Care Gear Machinist Name Role Phone Unavailable Primary Care Provider Unavailabl e Encounter Details Date Type Department Care Team (Late st Contact Info) Description 03/07/2018 Transcribed Document [facility] Family Medicine [facility] [place] [address] ProviderSarah MD [facility] [address] Social History Tobacco Use Types Packs/Day Years Used Date Smoking Tobacco: Never Assessed Sex and Gender Information Value Date Recorded Sex Assigned at Not on file Legal Sex Male 1:22 PM CDT Gender Identity Not on file Sexual Orientation Not on file documented as of this encounter Miscellaneous Notes * Cerner Conversion Note - Sarah ProviderMD - 03/07/2018 8:29 AM RECEPTION CENTRE MANAGER Pre Procedure Adult Entered On: 03/07/2018 8:34 EST Performed On: 03/07/2018 8:29 EST by Yeni Shields RN Height and Weight, Clinical Dosing Height Source : Stated Height Entry Format : [facility] Height, Feet : 5 ft(Converted to: 152 cm, 60 Inch) Height, Inches : 7 Inch(Converted to: 0 ft 7 Inch, 17.78 cm) Clinical Height : 170.18 cm Weight Source : Standing scale Weight Entry Format : [facility] Clinical Dosing Weight : 118.64 kg Weight, Pounds : 261 lb Body Surface Area (BSA) : 2.27 m2 Body Mass Index : 41 kg/m2 (>HHI) [place] Body Weight : 65 kg Yeni Shields [...] Fernandez Support Person/Pt Rep Contact Information : [phone] Want Family/Rep/Phys Notified of Admit : No Emergency Contact #1 : Mere Fernandez Emergency Contact #1 Emergency Contact #1 Relationship : Emergency Contact #2 : NA Emergency Contact #2 Phone Number : NA Emergency Contact #2 Relationship : NA Information Obtained From : Patient Primary Language : [place] Preferred Communication Mode : Verbal Communication Barrier [...] Scale Risk Level : 0-24 Low Risk [place] Fall Interventions : Adequate lighting, Bed in [...]
--- OUTSIDE RECORDS SUMMARY | 2024-09-04 09:33 | XMS_ITS | Clinical Summary ---
Author Organization [employer] ([place], [place], [place], [place]) Address [address] [place] [address] Care Team Providers Care Livestock Trucker Name Role Phone Unavailable Primary Care Provider [...]
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
--- OUTSIDE RECORDS SUMMARY | 2024-09-04 09:33 | XMS_ITS | Encounter Summary ---
Author Organization [employer] ([place], [place], [place], [place]) Address [address] [place] [address] Care Team Providers Care Housing Inspectors Name Role Phone Unavailable Primary Care Provider Unavailabl e Encounter Details Date Type Department Care Team (Late st Contact Info) Description 03/07/2018 Transcribed Document [facility] Family Medicine [address] [place] [address] ProviderSarah MD [address] [place] [address] Social History Tobacco Use Types Packs/Day Years Used Date Smoking Tobacco: Never Assessed Sex and Gender Information Value Date Recorded Sex Assigned at Not on file Legal Sex Male 1:22 PM CDT Gender Identity Not on file Sexual Orientation Not on file documented as of this encounter Miscellaneous Notes * Cerner Conversion Note - Historical ProviderMD - 03/07/2018 10:00 AM SOCCER COACH Event Note Entered On: 03/07/2018 10:06 EST Performed On: 03/07/2018 10:00 EST by Yeni Shields, LUCIA Event Note Description of Event : Pt returned from computer lab assistant with right 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 Pt placed on monitor, call clifford within reach, family at BS. Yeni Shields, RN - 03/07/2018 10:05 EST Electronically signed by [facility] Conversion Special Trackwork Blacksmith Cerner at 06/17/2022 7:47 PM CDT documented in this encounter Plan of Treatment Not on file documented as of this encounter Visit Diagnoses Not on filedocumented in this encounter
--- NOTE | 2024-09-04 09:54 | EXP.PAIN.SOA ---
[facility] Disclaimer: The information contained in this section may have been updated after the patient was seen, as this information can be updated by other users. Medical History Mass of left parotid gland Hypotension Blood pressure medications x4 were discontinued Fatigue BASIM (obstructive sleep apnea) Order sent to [facility] to set up AutoPap 8/12 cm, ramp 4 cm during 15 minutes. History of basal cell carcinoma Dyspnea Pulmonary embolism Dementia HLD (hyperlipidemia) HTN (hypertension) (~05/08/24) Diastolic dysfunction CAD (coronary artery disease) Surgical History History of foot surgery History of back surgery History of bunionectomy History of cholecystectomy History of bilateral knee replacement Family History Other Cancer Coronary artery disease Diabetes Heart attack Hyperlipidemia Hypertension Social History Smoking Status: Former smoker alcohol intake: current alcohol intake frequency: holidays/special occasions only substance use type: denies use current occupational status: retired Travel in the last 8 weeks?: None household members: spouse housing: house marital status: number of children: 3 caffeine: Yes PM Subjective & Objective Subjective Subjective:: [id number] is a pleasant 74-year-old male who presents today for follow-up of his first lumbar medial branch block bilaterally L4-L5 after S1 on 08/15/2024. Today he rates his pain a 0 out of 10. He states that he has had 100% relief following this procedure. He does state that he does still have some stiffness but the pain has completely gone away. Patient does state that it was pretty much immediate and that he had no pain by the time he left out of our office on the day of the procedure. He denies any other changes. His Buck has been reviewed and is appropriate. Review of Systems: General: No recent weight changes, no fever, no sleep disturbances Respiratory: No cough, no shortness of air, no recurring pulmonary infections Cardiovascular/peripheral vascular: No chest pain, no palpitations, no edema, no shortness of breath Gastrointestinal: No new onset incontinence, normal bowel movements reported Genitourinary: No new onset incontinence Musculoskeletal: Low back pain Psychiatric: [Normal mood/affect] Neurological: [Denies weakness in extremities], [denies balance issues] Pain at rest (0-10 scale): 0 Objective Objective:: Physical Exam: General: Alert and oriented x3, no acute distress, pleasant and cooperative Lungs: Respirations even and unlabored, symmetrical chest expansion Eyes: PERRL Musculoskeletal: Flexion and extension of lumbar [spine] somewhat guarded secondary to pain Neurological: Speech clear, no gross sensory deficit Has patient had previous pain injection?: Yes Percent improvement in pain since last injection: 100% Conservative treatment options previously tried: Home exercise plan Length of treatment: Longer than 12 weeks Meds Home Medications and Allergies Home Medications ?Medication ?Instructions ?Recorded ?Confirmed ?Type aspirin 81 mg tablet,delayed 81 mg PO DAILY heart health 05/18/19 08/15/24 History release memantine 10 mg tablet 10 mg PO BID 30 days #60 tabs 07/29/21 08/15/24 Rx baclofen 10 mg tablet 10 mg PO TID PRN Pain, Mild 11/09/23 08/15/24 History donepezil 10 mg tablet 10 mg PO HS 11/09/23 08/15/24 History nitroglycerin 0.4 mg sublingual 0.4 mg sublingual Q5M PRN chest 12/31/23 08/15/24 Rx tablet pain #30 tabs atorvastatin 40 mg tablet 40 mg PO DAILY Cholesterol #90 tabs 02/18/24 08/15/24 Rx clopidogrel 75 mg tablet (Plavix) 75 mg PO DAILY #30 tabs 02/18/24 08/15/24 Rx amlodipine 10 mg tablet 10 mg PO DAILY BLOOD PRESSURE 04/26/24 08/15/24 History glipizide 5 mg tablet, extended 5 mg PO DAILY Diabetes 04/26/24 08/15/24 History release 24 hr quetiapine 25 mg tablet See Rx Instructions .Route 05/04/24 08/15/24 Rx .COMPLEX #30 tabs tamsulosin 0.4 mg capsule (Flomax) 0.4 mg PO DAILY 90 days #90 caps 08/07/24 08/15/24 Rx New Prescriptions to Start Prescriptions: Allergies Allergy/AdvReac Type Severity Reaction Status Date / Time No Known Allergies Allergy Verified 08/07/24 13:11 Assessment and Plan *Assessment and plan (1) 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 Patient will return to clinic in 1 month for reevaluation of symptoms and plan of care. Patient has been instructed to contact the clinic with any concerns before the next appointment. Dr. Denton has reviewed this note and agrees with this plan of care. This note was dictated using voice recognition software and make contain errors or omissions. All injections are used with Lidocaine, Bupivacaine and dexamethasone. Occasionally urine drug screen is needed to verify patient's compliance with our office pain contract. This is ordered based off specific treatments related to chronic pain with the potential to abuse certain medications.
[2024-09-04 10:13] VITALS: BP 129/57; PULSE 62; RESP 18; O2SAT 95; BMI 33.5
== END 2024-09-04 23:59 | disposition home or self-care (01) ==
LOC: SC.PAIN 09:30
PROVIDERS: PCP Family Medicine; Visit Provider Nurse Practitioner Family
DX: M51.370 Other intervertebral disc degeneration, lumbosacral region with discogenic back pain only (principal); M47.816 Spondylosis without myelopathy or radiculopathy, lumbar region
CPT/HCPCS: 99212; G0463

== ENCOUNTER 2024-10-04 09:58 | Outpatient (POV) | payer MEDICARE, SELFPAY ==
--- OUTSIDE RECORDS SUMMARY | 2023-12-23 09:00 | XMS_ITS ---
Author Organization [facility] - [address] Address [address] [place] [address] Care Team Providers Care Director Of Undergraduate Admissions Name Role Phone Chelsy Oliver MD Primary Care Provider UnaLOREE Spivey Unavailable [phone] Allergies No Known Allergies REASON FOR VISIT 6 Month F/U Social History Tobacco Use: Social History Observation Description Date Details (start date - stop date) Former Smoker NA - NA Tobacco Use/Smoking Question Answer Notes Are you a former smoker How long has it been since y ou last smoked? > 10 years Additional Findings: Tobacco User Modera te cigarette smoker (10-19 cigs/day) Encounters Encounter Location Date Provider Diagnosis [facility] - [address] [place] [address] 12/23/2023 LOREE RICH Coronary artery dise ase involving barrow coronary artery of barrow heart with other form of angina pectoris I25.118 ; Coronary angioplasty status Z98.61 ; Hypercholesterolemia E78.00 ; Type 2 diabetes mellitus without complication, without long-term current use of insulin E11.9 and Morbid (severe) obesity due to excess calories E66.01 Assessments Encounter Date Diagnosis (ICD Code) Assessment Notes Treatment Notes Treatment Clinical Notes Section Notes 12/23/2023 Coronary artery dise ase involving barrow coronary artery of barrow heart with other form of angina pectoris (ICD-10 - I25.118) 12/23/2023 Coronary angioplasty status (ICD-10 - Z98.61) 12/23/2023 Hypercholesterolemia (ICD-10 - E78.00) 12/23/2023 Type 2 diabetes rhea itus without complication, without long-term current use of insulin (ICD-10 - E11.9) 12/23/2023 Morbid (severe) obes ity due to excess calories (ICD-10 - E66.01) Plan Of Treatment No Information Progress Notes * Constanza CORDEROOB:1950 (74 yo M)Acc No.[id number]:12/23/2023 Progress Notes Patient: Reji VELÁSQUEZ Provider: Hunter Rich MD [facility] :1950 A ge:73 Y S ex:Male Date:12/23/2023 Address:[address] [place] [address], [facility] , [id number] Pcp:Chelsy Oliver MD Subjective: * Chief Complaints: * 1 . 6 Month F/U. * HPI: E lectrocardiogram (ECG): The electrocardiogram (ECG) 1 04/14/2022. L VEF Recordings: Based on - E CHO. Ejection Fraction L eft ventricular systolic dysfunction N ormal R esult (%) 6 5 D ate : 0 08/28/2021 Conclusions: 1. Left ventricular ejection fraction estimated by 2D at 65-70% with moderate concentric hypertrophy. 2. Analysis of mitral valve inflow and tissue doppler suggests grade I diastolic dysfunction. M yocardial Perfusion Imagin09/04/2021 PET/CT Stress CONCLUSIONS: 1. There was a small, mild, reversible lateral defect. 2. Normal wall thickening. 3. Normal LV systolic function 4. Despite an abnormal perfusion defect seen in the lateral segment of the left ventricle, the normal myocardial blood flow reserve suggests study normalcy, and reduces the risk of a major coronary related event. * ROS: G eneral/Constitutional-ros: Denies C hange in appetite. D enies C hills. D enies F atigue. D enies F ever. D enies H eadache. D enies L ightheadedness. D enies S leep disturbance. D enies W eight gain. D enies W eight loss.? C ardiovascular: Denies C hest pain. D enies C hest pain at rest.?Denies C hest pain with exertion. D enies C laudication. D enies C yanosis.?Denies D ifficulty laying flat. D enies D izziness. D enies D yspnea on exertion. D enies F luid accumulation in the legs. D enies I rregular heartbeat. D enies O rthopnea. D enies P alpitations. D enies S hortness of breath. D enies S welling in hands/feet. D enies W eakness. D enies W eight gain. ? P eripheral Vascular: Denies A bsent pulses in hands. D enies A bsent pulses in feet. D enies B lanching of skin. D enies B lood clots in legs. D enies?Cold extremities. D enies D ecreased sensation in extremities. D enies P ain/cramping in legs after exertion. D enies P ainful extremities. D enies U lceration of feet. * Medical History: D M2, HPLD, HTN, Chest Pain, Osteoarthritis , ED. * Surgical History: G all Bladder , BIlateral Knee Replacement , Back Surgery x 2 , Heart Stint . * Hospitalization/Major Diagno stic Procedure: D enies Past Hospitalization. * Family History: F ather: , family history unknown . M other: , diagnosed with Hypertension. * Social History: T obacco Use: T obacco Use/Smoking A re you a f ormer smoker H ow long has it been since you last smoked??> 10 years A dditional Findings: Tobacco User M oderate cigarette smoker (10-19 cigs/day) * Allergies: N .K.D.A. Objective: * Vitals: * Examination: C ardiovascular exam : General Appearance a lert, oriented in no acute distress.? HEENT w ithin normal limits. Carotid Upstroke 2 + bilaterally with no bruits appreciated. Jugular Venous Distention (JVD) n o juglar venous distension. Chest n o tenderness over chest wall to palpitation. Lungs C lear to auscultation and percussion bilaterally.? Cardiovascular R RR, S1 normal, S2 normal split, no murmur, rub or gallops. Abdomen s oft, non-tender, no hepatomegaly, no splenomegaly, no mass, no ascites. Extremities n o clubbing, cyanosis or edema. Peripheral Pulses 2 + dorsalis pedis and posterior tibial pulses bilaterally. Assessment: * Assessment: 1. C oronary artery disease involving barrow coronary artery of barrow heart with other form of angina pectoris - I25.118 (Primary) 2 . C oronary angioplasty status - Z98.61? 3. H ypercholesterolemia - E78.00 4 . T ype 2 diabetes mellitus without complication, without long-term current use of insulin - E11.9 5 . M orbid (severe) obesity due to excess calories - E66.01 Plan: * Treatment: * Preventive Medicine: Counseling: B P Management: LIFESTYLE RECOMMENDATION: H ypertension education PHYSICAL ACTIVITY RECOMMENDATION: G iving encouragement to exercise C are goal follow-up plan: BMI counseling provided to patient:?Lifestyle education Screenings: F ALL RISK SCREENING Fall Risk Assessment: N o falls in the past year Assessment: P erformed Plan of Care: D ocumented YOUR PREVENTIVE WELLNESS PLAN: B NC, Height, and Weight: The Recommended Frequency is: A nnually My BMI, height, and weight were taken on: * * Electronic signature of LOREE RICH MD on 10/04/2024 at 10:01 AM EDT Sign off status: Pending * Provider: Hunter Rich MD [facility] Date: Generated for Tyree sanford/Geraldine/eTransmitting on: 0 10/04/2024 10:01 AM EDT History and Physical Notes * HPI (History of Present Illness) Category Sub-Category Detail Notes Category Notes Electrocardiogram (ECG) The electrocardi ogram (ECG) 02/11/2023 Myocardial Perfusion Imaging 09/04/2021 PET/CT Stress CONCLUSIONS: 1. There was a small, mild, reversible lateral defect. 2. Normal wall thickening. 3. Normal LV systolic function 4. Despite an abnormal perfusion defect seen in the lateral segment of the left ventricle, the normal myocardial blood flow reserve suggests study normalcy, and reduces the risk of a major coronary related event. LVEF Recordings Based on - ECHO Conclusions: 1. Left ventricular ejection fraction estimated by 2D at 65-70% with moderate concentric hypertrophy. 2. Analysis of mitral valve inflow and tissue doppler suggests grade I diastolic dysfunction. Ejection Fraction Left ventricular systolic dysf unction: Normal Result (%): 65 Date : : 08/28/2021 Examination Category Sub-Category Detail Notes Category Not es Cardiovascular exam General Appearance alert, or iented in no acute distress HEENT within normal limits Carotid Upstroke 2 + bilaterally with no bruits appreciated Jugular Venous Distention (JVD) no jugla r venous distension Chest no tenderness over c hest wall to palpitation Lungs Clear to auscultatio n and percussion bilaterally Cardiovascular RRR, S1 normal, S2 n ormal split, no murmur, rub or gallops Abdomen soft, non-tender, no hepatomegaly, no splenomegaly, no mass, no ascites Extremities no clubbing, cyanosi s or edema Peripheral Pulses 2+ dorsalis pedis an d posterior tibial pulses bilaterally
--- OUTSIDE RECORDS SUMMARY | 2024-10-03 10:00 | XMS_ITS | Encounter Summary ---
Author Organization Healthcare Address [address] [place] [address] Care Team Providers Care Office Engineer Name Role Phone Adrian Gamnig MD Primary Care Provider [phone] Reason for Visit * Reason Comments Elevated PSA Encounter Details Date Type Department Care Team (Late st Contact Info) Description 10/03/2024 10:00 AM EDT Consult [facility] [address] [place] [address] Macario Gan MD [address] [place] [address] Elevated PSA (Primary Dx) Social History Tobacco Use Types Packs/Day Years Used Date Smoking Tobacco: Former Cigarettes - 1989 Passive Smoke Exposure: Never Smokeless Tobacco: Former Tobacco Cessation:Counseling Given: Not Answered PHQ-2 Answer Date Recorded Patient Health Questionnaire-2 Score 0 10/03/2024 PHQ-9 Answer Date Recorded Patient Health Questionnaire-9 Score 0 10/03/2024 AUDIT-C Answer Date Recorded Q1: How often do you have a drink containing alcohol? Monthly or less 10/03/2024 Q2: How many drinks containi ng alcohol do you have on a typical day when you are drinking? Patient does not drink Q3: How often do you have si x or more drinks on one occasion? Never 10/03/2024 Sex and Gender Information Value Date Recorded Sex Assigned at Not on file Legal Sex Male 8:38 PM EDT Gender Identity Not on file Sexual Orientation Not on file documented as of this encounter Last Filed Vital Signs Vital Sign Reading Time Taken Comments Blood Pressure 99/65 10/03/2024 10:21 AM EDT Pulse 72 10/03/2024 10:21 AM EDT Temperature 37.1 C (98.7 F) 10/03/2024 10:21 AM EDT Respiratory Rate 18 10/03/2024 10:21 AM EDT Oxygen Saturation 96% 10/03/2024 10:21 AM EDT Inhaled Oxygen Concentration - - Weight 106 kg (233 lb 0.4 oz) 10/03/2024 10:21 A M EDT Height 167.6 cm (5' 6 ) 10/03/2024 10:21 AM EDT Body Mass Index 37.61 10/03/2024 10:21 AM EDT documented in this encounter Functional Status * AUDIT-C Score Answer Date of Assessment Author 1 10/03/2024 10:22 AM Burak Summers * Question Answer Date of Assessment Author Q1: How often do you have a drink containing alcohol? Monthly or less 10/03/2024 10:22 AM Sal Summers Q2: How many drinks containing alcohol do you have on a typical day when you are drinking? Patient does not drink 10/03/2024 10:22 AM Burak Summers Q3: How often do you have six or more drinks on one occasion? Never 10/03/2024 10:22 AM Sal Summers * Over the past 2 weeks, how often have you been bothered by any of the following problems? Question Answer Date of Assessment Author Little interest or pleasure in doing things Not at all 10/03/2024 10:19 AM Sal Summers Feeling down, depressed, or hopeless Not at all 10/03/2024 10:19 AM Sal Summers Patient Health Questionnaire -2 Score 0 10/03/2024 10:19 AM Sal Summers * Question Answer Date of Assessment Author Trouble falling or staying asleep, or sleeping too much Not at all 10/03/2024 10:19 AM Burak Sorto Feeling tired or having moreno le energy Not at all 10/03/2024 10:19 AM Sal Summers Poor appetite or overeating Not at all 10/03/2024 10 :19 AM Burak Summers Feeling bad about yourself - or that you are a failure or have let yourself or your family down Not at all 10/03/2024 10:19 AM Burak Villarreal Trouble concentrating on thi ngs, such as reading the newspaper or watching television Not at all 10/03/2024 10:19 AM Sal Summers Moving or speaking so slowly that other people could have noticed? Or the opposite - being so fidgety or restless that you have been moving around a lot more than usual. Not at all 10/03/2024 10:19 AM Sal Summers Thoughts that you would be better off or hurting yourself in some way Not at all 10/03/2024 10:[address] Patient Health Questionnaire -9 Score 0 10/03/2024 10:19 AM Sal Summers documented as of this encounter Plan of Treatment Upcoming Encounters Date Type Department Care Team (Late st Contact Info) Description 10/05/2024 8:50 AM EDT Office Visit [facility] [address] [place] [address] Candelaria Ahn DO [address] [facility] [address] [place] [address] 10/02/2025 9:45 AM EDT [facility] [address] [place] [address] Macario Gan MD [address] [facility] [address] [place] [address] Scheduled Orders Name Type Priority Associated Diagnoses Orde r Schedule Prostate Specific Antigen, Diagnostic, Serum Lab Routine Elevated PSA Expected: 09/28/2025 Prostate Specific Antigen, Diagnostic, Serum Lab Routine Elevated PSA Expected: 10/03/2025 (Approximate), Expires: 04/05/2026 documented as of this encounter Visit Diagnoses Diagnosis Elevated PSA- Primary Elevated prostate specific antigen (PSA) documented in this encounter Additional Health Concerns Assessment Noted Time PHQ-9 Depression Total Score: 0 10/04/19 10:19 AM EDT A fall risk assessment has been complete d for the patient 10/03/2024 10:19 AM EDT documented as of this encounter Care Teams Office Engineer Relationship Specialty Start Date End Date Adrian Gaming MD [address] [place] [address] PCP - General 09/13/24 documented as of this encounter
--- OUTSIDE RECORDS SUMMARY | 2024-10-04 10:01 | XMS_ITS | Encounter Summary ---
[facility] Address [address] [place] [address] Care Team Providers Care Powerhouse Mechanic Supervisor Name Role Phone Macario Bell MD Primary Care Provider + Encounter Details Date Type Department Care Team (Late st Contact Info) Description 04/06/2017 External CPT II NETWORK/TELECOM ENGINEER - [facility] Social History Tobacco Use [...] on filedocumented in this encounter Care Teams Powerhouse Mechanic Supervisor Relationship Specialty Start Date End Date Macario Bell MD PCP - General Family Medicine 01/08/16 documented as of this encounter
--- OUTSIDE RECORDS SUMMARY | 2024-10-04 10:01 | XMS_ITS | Encounter Summary ---
Author Organization [email or web address] ([place], [place], [place], [place]) Address [address] [place] [address] Care Team Providers Care Claims Technician Name Role Phone Unavailable Primary Care Provider Unavailabl e Reason for Visit * Reason Comments Medication Refill Encounter Details Date Type Department Care Team (Late st Contact Info) Description 05/18/2022 Refill [facility] Cardiology [address] [place] [address] Jhonatan Jung MD [address] [facility] [address] [place] [address] Social History Tobacco Use Types Packs/Day Years [...]
--- OUTSIDE RECORDS SUMMARY | 2024-10-04 10:01 | XMS_ITS | Clinical Summary ---
[facility] [address] [place] [address] Care Team Providers Care Resource Analyst Name Role Phone Macario Bell MD Primary [...] Maintenance Due Date Last Done Comments ANNUAL PHYSICAL 1950 HEPATITIS C SCREENING 1950 TDAP/TD VACCINES (1 - Tdap) 01/07/1968 COLOGUARD 1994 COLON CANCER SCREENING 5 YEAR SIGMOIDOSCOPY 1994 COLONOSCOPY 1994 COLORECTAL CANCER SCREENING 1994 CT COLONOGRAPHY 1994 FECAL OCCULT BLOOD TEST 1994 FIT Testing (1 year) 1994 Pneumococcal Vaccine 50+ (1 of 1 - PCV) 1999 ZOSTER VACCINE (1 of 2) 1999 AAA SCREEN ONCE 2014 COVID-19 Vaccine (1 - 2023-25 season) 2023 RSV Vaccine - Adults (1 - 1-dose 75+ series) INFLUENZA VACCINE 11/29/2024 Insurance MEDICARE A & [place] [address] [employer] OPTIONS Care Teams Resource Analyst Relationship Specialty Start Date End Date Macario Bell MD PCP - General Family Medicine 01/08/16
--- OUTSIDE RECORDS SUMMARY | 2024-10-04 10:01 | XMS_ITS | Encounter Summary ---
Author Organization [employer] ([place], [place], [place], [place]) Address [address] [place] [address] Care Team Providers Care Stunt Driver Name Role Phone Unavailable Primary Care Provider Unavailabl e Encounter Details Date Type Department Care Team (Late st Contact Info) Description 03/07/2018 Transcribed Document [facility] [place] [address] [place] [address] ProviderSarah MD [address] [place] [address] Social History Tobacco Use Types Packs/Day Years Used Date Smoking Tobacco: Never Assessed Sex and Gender Information Value Date Recorded Sex Assigned at Not on file Legal Sex Male 1:22 PM CDT Gender Identity Not on file Sexual Orientation Not on file documented as of this encounter Miscellaneous Notes * Cerner Conversion Note - Historical ProviderMD - 03/07/2018 10:00 AM ACCOUNT EXECUTIVE AGRIBUSINESS Event Note Entered On: 03/07/2018 10:06 EST Performed On: 03/07/2018 10:00 EST by Yeni Shields, LUCIA Event Note Description of Event : Pt returned from assistant laboratory director with right 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 Pt placed on monitor, call clifford within reach, family at BS. Yeni Shields, RN - 03/07/2018 10:05 EST Electronically signed by [facility] Conversion Bus Driver School Cerner at 06/17/2022 7:47 PM CDT documented in this encounter Plan of Treatment Not on file documented as of this encounter Visit Diagnoses Not on filedocumented in this encounter
--- OUTSIDE RECORDS SUMMARY | 2024-10-04 10:01 | XMS_ITS | Encounter Summary ---
Author Organization Healthcare Address [address] [place] [address] Care Team Providers Care Web Retailer Name Role Phone Macario Bell MD Primary Care Provider [phone] Adrian Gaming MD Primary Care Provider [phone] Encounter Details Date Type Department Care Team (Late st Contact Info) Description 06/15/2023 Orders Only External Location [address] [place] [id number] Provider, External Social History Tobacco Use Types [...] Description 10/05/2024 8:50 AM EDT Office Visit [facility] at [facility] [address] [place] [address] Candelaria Ahn DO [address] [place] [address] 10/02/2025 9:45 AM EDT Office Visit [facility] [address] [place] [address] Macario Gan MD [address] [place] [address] documented as of this encounter Procedures Procedure [...] on filedocumented in this encounter Care Teams Web Retailer Relationship Specialty Start Date End Date Macario Bell MD [address] [place] [address] PCP - General 07/12/20 09/12/24 Adrian Gaming MD [address] [address] PCP - General 09/13/24 documented as of this encounter
--- OUTSIDE RECORDS SUMMARY | 2024-10-04 10:01 | XMS_ITS | Clinical Summary ---
Author Organization [employer] ([place], [place], [place], [place]) Address [address] [place] [address] Care Team Providers Care Licensed Aircraft Maintenance Engineer Name Role Phone Unavailable Primary Care Provider [...]
--- OUTSIDE RECORDS SUMMARY | 2024-10-04 10:01 | XMS_ITS | Encounter Summary ---
Author Organization [email or web address] ([place], [place], [place], [place]) Address [address] [place] [address] Care Team Providers Care Military Communications Specialist Name Role Phone Unavailable Primary Care Provider Unavailabl e Encounter Details Date Type Department Care Team (Late st Contact Info) Description 03/07/2018 Transcribed Document [facility] [place] Family Medicine [facility] [place] [address] ProviderSarah MD [facility] [place] [address] Social History Tobacco Use Types Packs/Day Years Used Date Smoking Tobacco: Never Assessed Sex and Gender Information Value Date Recorded Sex Assigned at Not on file Legal Sex Male 1:22 PM CDT Gender Identity Not on file Sexual Orientation Not on file documented as of this encounter Miscellaneous Notes * Cerner Conversion Note - Sarah ProviderMD - 03/07/2018 10:09 AM INSTRUMENT AND CONTROL SERVICE PERSON [address] , [place] [id number] Patient Copy Patient Information: Name: APOLONIA FERNANDEZ V Current Date: 03/07/2018 10:09:44 : 1950 Patient Address: [address] [place] [address] [facility] [address] Patient Attending Physician: PENNY LA MD-CAR Primary Care Provider: TENZIN RICARDO MD-[facility] Primary Care Provider Discharge Diagnosis: Weight on Admission: 261 lb, 0 oz Comment: Follow-up Instructions: With: Address: When: [place] [address] [place] [address], [address] [place] [id number] Business (1) Within 1 month Discharge Instructions: [...] 09/03/2005 Document Revised: 07/23/2016 Document Reviewed: 07/19/2013 [employer] Patient Education ? 2017 [employer] Radial Site Care Introduction Refer to [...] you are awake and alert. ??? Take cogw-gwm-giydmcd and prescription medicines only as told by [...] 12/06/2013 Document Revised: 07/20/2016 Document Reviewed: 06/06/2016 [employer] Interactive Patient Education ? 2017 [employer] Medication Leaflets: ranolazine (ra CHARLENE nice) [...] may report side effects to FDA at 2-561-FDE-9703. What other drugs will affect ranolazine? Many [...] interact with ranolazine. This includes prescription and ehxa-ucx-fablzsm medicines, vitamins, and herbal products. Give a [...] to ensure that the information provided by [employer]. ('[employer]') is accurate, up-to-date, and complete, but no guarantee is made to that effect. Drug information contained herein may be time sensitive. [employer] information has been compiled for use by healthcare practitioners and consumers in the [place] and therefore [employer] does not warrant that uses outside of the [place] are appropriate, unless specifically indicated otherwise. [employer]'s drug information does not endorse drugs, diagnose patients or recommend therapy. [employer] drug information is an informational resource designed [...] effective or appropriate for any given patient. [employer] does not assume any responsibility for any aspect of healthcare administered with the aid of information [employer] provides. The information contained herein is not intended to cover all possible uses, directions, precautions, warnings, drug interactions, allergic reactions, or adverse effects. If you have questions about the drugs you are taking, check with your doctor, nurse or pharmacist. Copyright 6340-8785 [facility]. Version: 12.30. Revision Date: 04/18/2015. CIGARETTE SMOKING: The facts are clear, cigarette smoking will shorten your life. Smoking can cause many illnesses along the way. As a healthcare provider, we recommend that you stop smoking. Assistance with quitting is available by contacting 9-977-UATC-NOW. This is a free resource providing counseling, [...] Be sure to sign up for the [employer] patient portal, which gives you 21/09 access to your medical information ??? including these discharge instructions ??? using your computer, smartphone, or tablet. Just go to [employer] to get started. Questions? Call . [facility] would like to thank you for allowing us to assist you with your healthcare needs. CONSUELO Solano ROY V, (or area representative) have received the above patient education materials/instructions and have verbalized understanding: Patient Signature _ Date/Time Patient Generator Mechanic Signature (if needed) Date/Time Clinician/Hospital Generator Mechanic Signature (if needed) Date/Time documented in this encounter Plan of Treatment Not on file documented as of this encounter Visit Diagnoses Not on filedocumented in this encounter
--- OUTSIDE RECORDS SUMMARY | 2024-10-04 10:01 | XMS_ITS ---
Author Organization Unknown Results OrderDate OrderTestName ResultName ResultDate Value Units Range AbnormalFlag ResultStatus ObservationNotes TestCode ResultCode DateRecorded AccessionNumber DiagnosticSectionCode DiagnosticSectionName Sequence Interpretation Cust 01/17/2024 00:00:00 Covid test (in house) Result: [id number]:00:00 neg Reviewed Tabitha Garcia 01/17/2024 2:55:10 PM > Provider reviewed results while patient in office.Marilyn Gomez 01/17/2024 3:45:41 PM > Covid test (in house) 01/17/2024 00:00:00103/18/2023 00:00:00CBC Fingerstick (in house)[facility] 8117-06-04Q44:00:[id number] - 400ReEdTabitha 01/17/2024 2:39:18 PM > Provider reviewed results while patient in office.Marilyn Gomez 01/17/2024 3:45:30 PM > Coding CBC Fingerstick (in house) 01/17/2024 00:00:00103/18/2023 00:00:00CBC Fingerstick (in house)[facility] 7075-02-69P90:00:0032.131 - 38RevieweTabitha Peralta 01/17/2024 2:39:18 PM > Provider reviewed results while patient in office.Marilyn Gomez 01/17/2024 3:45:30 PM > Coding CBC Fingerstick (in house) 01/17/2024 00:00:00103/18/2023 00:00:00[facility]stick [facility] house[facility] 5992-03-83L23:00:0029.225 - 35RevieweFabianTabitha 01/17/2024 2:39:18 PM > Provider reviewed results while patient in office.Marilyn Gomez 01/17/2024 3:45:30 PM > Coding CBC Fingerstick (in house) 01/17/2024 00:00:00103/18/2023 00:00:00CBC Fingerstick (in house)mcv 9622-82-89M03:00:0091.075 - 100RevieweFabianTabitha 01/17/2024 2:39:18 PM > Provider reviewed results while patient in office.Marilyn Gomez 01/17/2024 3:45:30 PM > Coding CBC Fingerstick (in house) 01/17/2024 00:00:00103/18/2023 00:00:00CBC Fingerstick (in house)hct 5772-30-82U51:00:0044.635 - 55RevieweFabianTabitha 01/17/2024 2:39:18 PM > Provider reviewed results while patient in office.Marilyn Gomez 01/17/2024 3:45:30 PM > Coding CBC Fingerstick (in house) 01/17/2024 00:00:00103/18/2023 00:00:00CBC Fingerstick (in house)hg 7142-50-79P55:00:0014.311.5 - 16.5RevieweFabianTabitha 01/17/2024 2:39:18 PM > Provider reviewed results while patient in office.Marilyn Gomez 01/17/2024 3:45:30 PM > Coding CBC Fingerstick (in house) 01/17/2024 00:00:00103/18/2023 00:00:00CBC Fingerstick (in house)rbc 0234-11-88M35:00:004.903.5 - 5.5RevieweFabianTabitha 01/17/2024 2:39:18 PM > Provider reviewed results while patient in office.Marilyn Gomez 01/17/2024 3:45:30 PM > Coding CBC Fingerstick (in house) 01/17/2024 00:00:00103/18/2023 00:00:00CBC Fingerstick (in house)gran 4028-37-69K12:00:0063.135 - 80[facility] 01/17/2024 2:39:18 PM > Provider reviewed results while patient in office.Marilyn Gomez 01/17/2024 3:45:30 PM > Coding CBC Fingerstick (in house) 01/17/2024 00:00:00103/18/2023 00:00:00CBC Fingerstick (in house)mid 7009-93-15Q51:00:007.42 - 15[facility] 01/17/2024 2:39:18 PM > Provider reviewed results while patient in office.Marilyn Gomez 01/17/2024 3:45:30 PM > Coding CBC Fingerstick (in house) 01/17/2024 00:00:00103/18/2023 00:00:00CBC Fingerstick (in house)lym 6532-75-62Q70:00:0029.515 - 50[facility] 01/17/2024 2:39:18 PM > Provider reviewed results while patient in office.Marilyn Gomez 01/17/2024 3:45:30 PM > Coding CBC Fingerstick (in house) 01/17/2024 00:00:00103/18/2023 00:00:00CBC Fingerstick (in house)wbc 5529-60-31Y38:00:007.53.5 - 10[facility] 01/17/2024 2:39:18 PM > Provider reviewed results while patient in office.Marilyn Gomez 01/17/2024 3:45:30 PM > Coding CBC Fingerstick (in house) 01/17/2024 00:00:00103/18/2023 00:00:00Rapid Strep- Inhousestrep test 9558-28-42M18:00:00neg[facility]EdC[facility] 01/17/2024 2:55:30 PM > Provider reviewed results while patient in office.Marilyn Gomez 01/17/2024 3:45:52 PM > Coding Rapid Strep- Inhouse 01/17/2024 00:00:00103/18/2023 00:00:00Influenza Screen (in house)results 8115-39-70H42:00:00negReTabitha Ward 01/17/2024 2:56:52 PM > Provider reviewed results while patient in office.Marilyn Gomez 01/17/2024 3:47:01 PM > Coding Influenza Screen (in house) 01/17/2024 00:00: 00:00:00H-BUN/KAZVIPYQW7825-00-85C64:00:0054ml/min >60 - ml/minLReviewedprior to TammyAdrian 03/06/2024 9:36:06 AM > Coding H-BUN/CREAT 03/03/2024 00:00: 00:00:00H-BUN/DNOZLYYDOJ8879-61-38Z39:00:0065 ML/MIN>60 - ML/MINReviewedprior to TammyAdrian 03/06/2024 9:36:06 AM > Coding H-BUN/CREAT 03/03/2024 00:00: 00:00:00H-BUN/KNBGGOZJHNG3684-67-26E00:00:001.30 mg/dl0.66-1.25 - mg/dlHReviewedprior to TammyAdrian T 03/06/2024 9:36:06 AM > Coding H-BUN/CREAT 03/03/2024 00:00: 00:00:00H-BUN/AAWGRAFY6095-52-08A65:00:0016mg/dl9- 20 - mg/dlReviewedprior to TammyAdrian T 03/06/2024 9:36:06 AM > Coding H-BUN/CREAT 03/03/2024 00:00: 00:00:00P-Microalbumin/Creatinine, Random Urine SampleMicroalbumin, Urine, Tujqse5847-50-31R27:00:001.0mg/dL- mg/dLReviewed Chanda Thomas 03/16/2024 4:49:20 PM > See phone encounter Coding P-Microalbumin/Creatinine, R andom Urine Sample 03/15/2024 00:00: 00:00:00P-Microalbumin/Creatinine, Random Urine SampleCreatinine, Wukci0669-63-93T27:00:20616.3mg/dL- mg/dLRevieweChanda Almaguer 03/16/2024 4:49:20 PM > See phone encounter Coding P-Microalbumin/Creatinine, R andom Urine Sample 03/15/2024 00:00: 00:00:00P-Microalbumin/Creatinine, Random Urine SampleAlbumin/Creatinine Ratio, Szzvn3715-26-06R85:00:009ug/mg0-30 - ug/mg Chanda Walton 03/16/2024 4:49:20 PM > See phone encounter Coding P-Microalbumin/Creatinine, R andom Urine Sample 03/15/2024 00:00: 00:00:00P-TSH reflex to FT4TSH reflex to FT4 4659-28-25L08:00:001.08mU/L0.43-5.25 - mU/LRevChanda Paredes 03/16/2024 4:49:20 PM > See phone encounter Coding P-TSH reflex to FT4 03/15/2024 00:00: 00:00:00P-PSA Free and TotalfPSA, PCT 0448-33-34V47:00:0036.43- %Chanda Walton 03/16/2024 4:49:20 PM > See phone encounter Coding P-PSA Free and Total 03/15/2024 00:00: 00:00:00P-PSA Free and TotalPSA Free 5628-07-50K55:00:001.92ng/mL- ng/mLRevChanda Paredes 03/16/2024 4:49:20 PM > See phone encounter Coding P-PSA Free and Total 03/15/2024 00:00: 00:00:00P-PSA Free and UwxohYIW4462-89-13V38:00:00 5.27ng/mL<4.00 - ng/mLHRChanda Urbina 03/16/2024 4:49:20 PM > See phone encounter Coding P-PSA Free and Total 03/15/2024 00:00: 00:00:00P-Lipid PanelTriglycerides 9230-00-25F50:00:0091mg/dL<150 - mg/dLChanda Walton 03/16/2024 4:49:20 PM > See phone encounter Coding P-Lipid Panel 03/15/2024 00:00: 00:00:00P-Lipid PanelNon-HDL Cholesterol 5884-69-78X68:00:0077mg/dL<130 - mg/dLChanda Walton 03/16/2024 4:49:20 PM > See phone encounter Coding P-Lipid Panel 03/15/2024 00:00: 00:00:00P-Lipid PanelLDL/HDL Ratio 9747-26-60O02:00:001.4Ratio<3.3 - RatioReChanda Avalos 03/16/2024 4:49:20 PM > See phone encounter Coding P-Lipid Panel 03/15/2024 00:00: 00:00:00P-Lipid PanelLDL Cholesterol (Calculation) 4148-51-87J93:00:0059mg/dL<130 - mg/dLChanda Walton 03/16/2024 4:49:20 PM > See phone encounter Coding P-Lipid Panel 03/15/2024 00:00: 00:00:00P-Lipid PanelHDL Cholesterol 0536-00-29C66:00:0042mg/dL>39 - mg/dLChanda Walton 03/16/2024 4:49:20 PM > See phone encounter Coding P-Lipid Panel 03/15/2024 00:00: 00:00:00P-Lipid PanelCholesterol 8577-67-88S11:00:29989hp/dL<200 - mg/dLReChanda Avalos 03/16/2024 4:49:20 PM > See phone encounter Coding P-Lipid Panel 03/15/2024 00:00: 00:00:00P-Lipid PanelCholesterol / HDL Ratio 4401-14-52W85:00:002.24Uswqd5.00-4.99 - RatioReChanda Avalos 03/16/2024 4:49:20 PM > See phone encounter Coding P-Lipid Panel 03/15/2024 00:00: 00:00:00P-Comprehensive Metabolic Panel (CMP)eGFR by Mturbvikor2376-95-38O47:00:0087mL/min/1.73m2>59 - mL/min/1.44g1RzcqszdsChanda Castillo 03/16/2024 4:49:20 PM > See phone encounter Coding P-Comprehensive Metabolic Pa epifanio (CMP) 03/15/2024 00:00: 00:00:00P-Comprehensive Metabolic Panel (CMP) Pecnpat2413-05-95X41:00:006.6g/dL6.0-8.3 - g/dLReBaileyChanda 03/16/2024 4:49:20 PM > See phone encounter Coding P-Comprehensive Metabolic Pa epifanio (CMP) 03/15/2024 00:00: 00:00:00P-Comprehensive Metabolic Panel (CMP) Avcxph1483-53-08Q01:00:92287sabx/N634-320 - mmol/JOELLEevChanda Paredes 03/16/2024 4:49:20 PM > See phone encounter Coding P-Comprehensive Metabolic Pa epifanio (CMP) 03/15/2024 00:00: 00:00:00P-Comprehensive Metabolic Panel (CMP) Pcfotmyct7159-07-89F57:00:004.5mmol/L3.5-5.3 - mmol/LRevieChanda Martinez 03/16/2024 4:49:20 PM > See phone encounter Coding P-Comprehensive Metabolic Pa epifanio (CMP) 03/15/2024 00:00: 00:00:00P-Comprehensive Metabolic Panel (CMP) Idrcarq3741-53-32Q11:00:84851xd/dL65-99 - mg/dLChanda Mcdowell 03/16/2024 4:49:20 PM > See phone encounter Coding P-Comprehensive Metabolic Pa epifanio (CMP) 03/15/2024 00:00: 00:00:00P-Comprehensive Metabolic Panel (CMP) Yfszhgsvkc2983-49-92J99:00:000.92mg/dL0.70-1.30 - mg/dLChanda Walton 03/16/2024 4:49:20 PM > See phone encounter Coding P-Comprehensive Metabolic Pa epifanio (CMP) 03/15/2024 00:00: 00:00:00P-Comprehensive Metabolic Panel (CMP)CO2 0573-52-42S74:00:0025mmol/L22-32 - mmol/Chanda Serrano 03/16/2024 4:49:20 PM > See phone encounter Coding P-Comprehensive Metabolic Pa epifanio (CMP) 03/15/2024 00:00: 00:00:00P-Comprehensive Metabolic Panel (CMP) Ycfjvsva1502-35-61K23:00:94034hwhb/L97-108 - mmol/LRChanda Urbina 03/16/2024 4:49:20 PM > See phone encounter Coding P-Comprehensive Metabolic Pa epifanio (CMP) 03/15/2024 00:00: 00:00:00P-Comprehensive Metabolic Panel (CMP) Jpcpool9917-67-71K02:00:009.1mg/dL8.6-10.4 - mg/dLChanda Walton 03/16/2024 4:49:20 PM > See phone encounter Coding P-Comprehensive Metabolic Pa epifanio (CMP) 03/15/2024 00:00: 00:00:00P-Comprehensive Metabolic Panel (CMP)BUN 6161-51-89T62:00:0010mg/dL8-23 - mg/dLChanda Walton 03/16/2024 4:49:20 PM > See phone encounter Coding P-Comprehensive Metabolic Pa epifanio (CMP) 03/15/2024 00:00: 00:00:00P-Comprehensive Metabolic Panel (CMP) Bilirubin, Gbrfs7650-16-19N47:00:000.3mg/dL<0.2-1.2 - mg/dLChanda Walton 03/16/2024 4:49:20 PM > See phone encounter Coding P-Comprehensive Metabolic Pa epifanio (CMP) 03/15/2024 00:00: 00:00:00P-Comprehensive Metabolic Panel (CMP)AST (SGOT)8401-71-56H90:00:0014IU/L<5-46 - IU/LRevieChanda Martinez 03/16/2024 4:49:20 PM > See phone encounter Coding P-Comprehensive Metabolic Pa epifanio (CMP) 03/15/2024 00:00: 00:00:00P-Comprehensive Metabolic Panel (CMP)ALT (SGPT)0386-24-15R56:00:0011IU/L<5-55 - IU/LRevieJuan,Chanda 03/16/2024 4:49:20 PM > See phone encounter Coding P-Comprehensive Metabolic Pa epifanio (CMP) 03/15/2024 00:00: 00:00:00P-Comprehensive Metabolic Panel (CMP) Alkaline Xzyukppdrqa7611-85-41N52:00:0057IU/L40-129 - IU/LRevieJuan,Chanda 03/16/2024 4:49:20 PM > See phone encounter Coding P-Comprehensive Metabolic Pa epifanio (CMP) 03/15/2024 00:00: 00:00:00P-Comprehensive Metabolic Panel (CMP) Wziiebu3031-75-79L02:00:003.9g/dL3.5-5.3 - g/dLAntonChanda 03/16/2024 4:49:20 PM > See phone encounter Coding P-Comprehensive Metabolic Pa epifanio (CMP) 03/15/2024 00:00: 00:00:00P-Comprehensive Metabolic Panel (CMP)A/G Gzmhf8648-12-78J05:00:001.41.1-2.5 -ReviewedChanda Thomas 03/16/2024 4:49:20 PM > See phone encounter Coding P-Comprehensive Metabolic Pa epifanio (CMP) 03/15/2024 00:00: 00:00:00Glycohemoglobin A1c (in house) xuxlvyaghmvsnor5016-96-87O59:00:006.3%%5 - 6.5 %Miriam Sanchez 03/15/2024 12:06:54 PM > Chanda Thomas 03/16/2024 4:49:20 PM > See phone encounter Coding Glycohemoglobin A1c (in hous e) 03/15/2024 00:00: 00:00:00Glucose (In-House)blood glucose 5079-06-79H80:00:53991yw/dL74 - 106 mg/dLReMiriam Hayward 03/15/2024 12:05:19 PM > Chanda Thomas 03/16/2024 4:49:20 PM > See phone encounter Coding Glucose (In-House) 03/15/2024 00:00: 00:00:00P-PSA Free and TotalfPSA, PCT 3400-77-68A86:00:0035.17- %ReviewedGoCaroline aquino 07/13/2024 12:22:09 PM > See phone encounter Coding P-PSA Free and Total 07/12/2024 00:00: 00:00:00P-PSA Free and TotalPSA Free 5519-76-28J08:00:002.55ng/mL- ng/mLRevieCaroline Bueno 07/13/2024 12:22:09 PM > See phone encounter Coding P-PSA Free and Total 07/12/2024 00:00: 00:00:00P-PSA Free and BctutDGV4081-08-26C17:00:00 7.25ng/mL<4.00 - ng/mLCaroline Rodarte 07/13/2024 12:22:09 PM > See phone encounter Coding P-PSA Free and Total 07/12/2024 00:00: 00:00:00P-Basic Metabolic Panel (BMP)eGFR by Yiwnoiezob5338-79-14B06:00:0075mL/min/1.73m2>59 - mL/min/1.99h1PquwfvlrHykajCaroline Rojas 07/13/2024 12:22:09 PM > See phone encounter Coding P-Basic Metabolic Panel (BMP ) 07/12/2024 00:00: 00:00:00P-Basic Metabolic Panel (BMP)Sodium 8581-09-71M01:00:46297wpmf/S327-509 - mmol/[place] Palm 07/13/2024 12:22:09 PM > See phone encounter Coding P-Basic Metabolic Panel (BMP ) 07/12/2024 00:00: 00:00:00P-Basic Metabolic Panel (BMP)Potassium 8112-32-75R41:00:004.5mmol/L3.5-5.3 - mmol/[place]oline Palm 07/13/2024 12:22:09 PM > See phone encounter Coding P-Basic Metabolic Panel (BMP ) 07/12/2024 00:00: 00:00:00P-Basic Metabolic Panel (BMP)Glucose 9927-29-88G31:00:0098mg/dL65-99 - mg/dLCaroline Rojas 07/13/2024 12:22:09 PM > See phone encounter Coding P-Basic Metabolic Panel (BMP ) 07/12/2024 00:00: 00:00:00P-Basic Metabolic Panel (BMP)Creatinine 2985-36-82G23:00:001.04mg/dL0.70-1.30 - mg/dLCaroline Rojas 07/13/2024 12:22:09 PM > See phone encounter Coding P-Basic Metabolic Panel (BMP ) 07/12/2024 00:00: 00:00:00P-Basic Metabolic Panel (BMP)CO2 2958-96-78M74:00:0026mmol/L22-32 - mmol/Caroline Palm 07/13/2024 12:22:09 PM > See phone encounter Coding P-Basic Metabolic Panel (BMP ) 07/12/2024 00:00: 00:00:00P-Basic Metabolic Panel (BMP)Chloride 0462-40-32C03:00:97599cmjh/L97-108 - mmol/Caroline Palm 07/13/2024 12:22:09 PM > See phone encounter Coding P-Basic Metabolic Panel (BMP ) 07/12/2024 00:00: 00:00:00P-Basic Metabolic Panel (BMP)Calcium 6616-03-48A24:00:009.4mg/dL8.6-10.4 - mg/dLCaroline Rojas 07/13/2024 12:22:09 PM > See phone encounter Coding P-Basic Metabolic Panel (BMP ) 07/12/2024 00:00: 00:00:00P-Basic Metabolic Panel (BMP)BUN 3926-32-72W90:00:009mg/dL8-23 - mg/dLCaroline Rojas 07/13/2024 12:22:09 PM > See phone encounter Coding P-Basic Metabolic Panel (BMP ) 07/12/2024 00:00: 00:00:00Glycohemoglobin A1c (in house) yfldoxybvjxkxmd1917-57-95J07:00:006.7%%5 - 6.5 %Dotty Mg 07/12/2024 11:58:43 AM > [place] Chatman 07/13/2024 12:22:09 PM > See phone encou nter Coding Glycohemoglobin A1c (in hous e) 07/12/2024 00:00: 00:00:00Glucose (In-House)blood glucose 4124-28-40Q01:00:22656tf/dL74 - 106 mg/dLReviewedJoDotty gautam 07/12/2024 11:54:27 AM > [place] Chatman 07/13/2024 12:22:09 PM > See phone encounter Coding Glucose (In-House) 07/12/2024 00:00:00
--- OUTSIDE RECORDS SUMMARY | 2024-10-04 10:01 | XMS_ITS | Encounter Summary ---
Author Organization [employer] ([place], [place], [place], [place]) Address [address] [place] [address] Care Team Providers Care Vehicle Delivery Worker Name Role Phone Unavailable Primary Care Provider Unavailabl e Encounter Details Date Type Department Care Team (Late st Contact Info) Description 03/07/2018 Transcribed Document [facility] Family Medicine [facility] [place] [address] ProviderSarah MD [facility] [place] [address] Social History Tobacco Use Types Packs/Day Years Used Date Smoking Tobacco: Never Assessed Sex and Gender Information Value Date Recorded Sex Assigned at Not on file Legal Sex Male 1:22 PM CDT Gender Identity Not on file Sexual Orientation Not on file documented as of this encounter Miscellaneous Notes * Cerner Conversion Note - Sarah ProviderMD - 03/07/2018 10:12 AM INTERNAL SALESPERSON [address] , [place] [id number] Patient Copy Patient Information: Name: APOLONIA FERNANDEZ V Current Date: 03/07/2018 10:12:49 : 1950 Patient Address: [address] [place] [address] [facility] [address] Patient Attending Physician: PENNY LA MD-CAR Primary Care Provider: TENZIN RICARDO MD-[facility] Primary Care Provider Discharge Diagnosis: Weight on Admission: 261 lb, 0 oz Comment: Follow-up Instructions: With: Address: When: PENNY [place] [address] [place] [address], [address] [place] [address] Business (1) 10:15 AM Discharge Instructions: Diet [...] 09/03/2005 Document Revised: 07/23/2016 Document Reviewed: 07/19/2013 [employer] Interactive Patient Education ? 2017 [employer] Radial Site Care Introduction Refer to [...] you are awake and alert. ??? Take hmnv-fpc-jdicivc and prescription medicines only as told by [...] 12/06/2013 Document Revised: 07/20/2016 Document Reviewed: 06/06/2016 [employer] Interactive Patient Education ? 2017 [employer]. Medication Leaflets: ranolazine (ra CHARLENE nice) Ranexa [...] may report side effects to FDA at [phone]-GBJ-8335. What other drugs will affect ranolazine? Many [...] interact with ranolazine. This includes prescription and bjbt-elx-pojjfiw medicines, vitamins, and herbal products. Give a [...] to ensure that the information provided by [employer]. ('[employer]') is accurate, up-to-date, and complete, but no guarantee is made to that effect. Drug information contained herein may be time sensitive. [employer] information has been compiled for use by healthcare practitioners and consumers in the [place] and therefore [employer] does not warrant that uses outside of the [place] are appropriate, unless specifically indicated otherwise. [employer]'s drug information does not endorse drugs, diagnose patients or recommend therapy. [employer] drug information is an informational resource designed [...] effective or appropriate for any given patient. [employer] does not assume any responsibility for any aspect of healthcare administered with the aid of information [employer] provides. The information contained herein is not intended to cover all possible uses, directions, precautions, warnings, drug interactions, allergic reactions, or adverse effects. If you have questions about the drugs you are taking, check with your doctor, nurse or pharmacist. Copyright [facility] [employer] Version: 12.30. Revision Date: 04/18/2015. CIGARETTE SMOKING: The facts are clear, cigarette smoking will shorten your life. Smoking can cause many illnesses along the way. As a healthcare provider, we recommend that you stop smoking. Assistance with quitting is available by contacting 0-260-OUTE-NOW. This is a free resource providing counseling, [...] Be sure to sign up for the [employer] patient portal, which gives you 21/09 access to your medical information ??? including these discharge instructions ??? using your computer, smartphone, or tablet. Just go to [employer] to get started. Questions? Call . [facility] would like to thank you for allowing us to assist you with your healthcare needs. CONSUELO Solano ROY V, (or agency service representative) have received the above patient education materials/instructions and have verbalized understanding: Patient Signature _ Date/Time Patient Vending Mechanic Signature (if needed) Date/Time Clinician/Hospital Vending Mechanic Signature (if needed) Date/Time documented in this encounter Plan of Treatment Not on file documented as of this encounter Visit Diagnoses Not on filedocumented in this encounter
--- OUTSIDE RECORDS SUMMARY | 2024-10-04 10:01 | XMS_ITS | Encounter Summary ---
Author Organization [facility] ([place], [place], [place], [place]) Address [address] [place] [address] Care Team Providers Care Baggagemaster Name Role Phone Unavailable Primary Care Provider Unavailabl e Encounter Details Date Type Department Care Team (Late st Contact Info) Description 03/07/2018 Transcribed Document [facility] [place] Family Medicine [facility] [place] [address] ProviderSarah MD [facility] [place] [address] Social History Tobacco Use Types Packs/Day Years Used Date Smoking Tobacco: Never Assessed Sex and Gender Information Value Date Recorded Sex Assigned at Not on file Legal Sex Male 1:22 PM CDT Gender Identity Not on file Sexual Orientation Not on file documented as of this encounter Miscellaneous Notes * Cerner Conversion Note - Sarah ProviderMD - 03/07/2018 10:08 AM CUSTOMER SERVICE ATTENDANT Discharge Instructions Entered On: 03/07/2018 10:09 EST [...] 03/07/2018 10:08 EST Electronically signed by Elver [facility] Conversion Bander Operator Cerner at 06/17/2022 7:55 PM CDT documented in this encounter Plan of Treatment Not on file documented as of this encounter Visit Diagnoses Not on filedocumented in this encounter
--- OUTSIDE RECORDS SUMMARY | 2024-10-04 10:01 | XMS_ITS | Encounter Summary ---
Author Organization Healthcare Address [address] [place] [address] Care Team Providers Care Credit Report Checker Name Role Phone Macario Bell MD Primary Care Provider [phone] Adrian Gaming MD Primary Care Provider [phone] Encounter Details Date Type Department Care Team (Late st Contact Info) Description 11/17/2018 Orders Only External Location [address] [place] [address] Eduardo Mir MD [address] [place] [address] Social History Tobacco Use Types [...] Visit [facility] [address] [place] [address] Candelaria Ahn DO [address] [place] [address] 10/02/2025 9:45 AM EDT Office Visit [facility] [address] [place] [address] Macario Gan MD [address] [facility] [address] [place] [address] documented as of this encounter Procedures Procedure Name Priority Date/Time Associated Diagnosis Comments MR OUTSIDE IMAGES 11/17/2018 3:33 PM EDT documented in this encounter Results * MR transfer of outside films (11/17/2018 3:33 PM EDT) Anatomical Region Laterality Modality Magnetic Resonan ce 11/17/2018 3:33 PM EDT Eduardo Mir MD IMG MRI PROCEDURES Final Resu lt documented in this encounter Visit Diagnoses Not on filedocumented in this encounter Care Teams Credit Report Checker Relationship Specialty Start Date End Date Macario Bell MD [address] [place] [id number] PCP - General 07/12/20 09/12/24 Adrian Gaming MD [address] [facility] [address] [place], [place] [id number] PCP - General 09/13/24 documented as of this encounter
--- OUTSIDE RECORDS SUMMARY | 2024-10-04 10:01 | XMS_ITS | Encounter Summary ---
Author Organization [employer] ([place], [place], [place], [place]) Address [address] [place] [address] Care Team Providers Care Dental Equipment Technician Name Role Phone Unavailable Primary Care Provider Unavailabl e Encounter Details Date Type Department Care Team (Late st Contact Info) Description 03/07/2018 Transcribed Document [facility] [place] [facility] [address] ProviderSarah [place] [address] Social History Tobacco Use Types Packs/Day Years Used Date Smoking Tobacco: Never Assessed Sex and Gender Information Value Date Recorded Sex Assigned at Not on file Legal Sex Male 1:22 PM CDT Gender Identity Not on file Sexual Orientation Not on file documented as of this encounter Miscellaneous Notes * Cerner Conversion Note - Sarah ProviderMD - 03/07/2018 8:29 AM STUNT DRIVER Pre Procedure Adult Entered On: 03/07/2018 8:34 EST Performed On: 03/07/2018 8:29 EST by Yeni Shields RN Height and Weight, Clinical Dosing Height Source : Stated Height Entry Format : Bradford Height, Feet : 5 ft(Converted to: 152 cm, 60 Inch) Height, Inches : 7 Inch(Converted to: 0 ft 7 Inch, 17.78 cm) Clinical Height : 170.18 cm Weight Source : Standing scale Weight Entry Format : Bradford Clinical Dosing Weight : 118.64 kg Weight, Pounds : 261 lb Body Surface Area (BSA) : 2.27 m2 Body Mass Index : 41 kg/m2 (>HHI) [place] Body Weight : 65 kg Yeni Shields [...] Fernandez Support Person/Pt Rep Contact Information : [phone] Want Family/Rep/Phys Notified of Admit : No Emergency Contact #1 : Mere Fernandez Emergency Contact #1 Emergency Contact #1 Relationship : Emergency Contact #2 : NA Emergency Contact #2 Phone Number : NA Emergency Contact #2 Relationship : NA Information Obtained From : Patient Primary Language : Paraguayan Preferred Communication Mode : Verbal Communication Barrier [...] Scale Risk Level : 0-24 Low Risk Pinnacle Fall Interventions : Adequate lighting, Bed in [...]
--- OUTSIDE RECORDS SUMMARY | 2024-10-04 10:01 | XMS_ITS | Encounter Summary ---
Author Organization [employer] ([place], [place], [place], [place]) Address [address] [place] [address] Care Team Providers Care Metal Trimmer Name Role Phone Unavailable Primary Care Provider Unavailabl e Encounter Details Date Type Department Care Team (Late st Contact Info) Description 03/07/2018 Transcribed Document [facility] [place] [facility] [place] [address] ProviderSarah [place] [address] Social History Tobacco Use Types Packs/Day Years Used Date Smoking Tobacco: Never Assessed Sex and Gender Information Value Date Recorded Sex Assigned at Not on file Legal Sex Male 1:22 PM CDT Gender Identity Not on file Sexual Orientation Not on file documented as of this encounter Miscellaneous Notes * Cerner Conversion Note - Historical ProviderMD - 03/07/2018 10:07 AM REFUSE COLLECTOR Nursing Discharge Summary Entered On: 03/07/2018 10:08 EST Performed On: 03/07/2018 10:07 EST by Yeni Shields train electronic technician Documentation Discharge Date/Time : 03/07/2018 12:15 EST [...] 03/07/2018 10:07 EST Electronically signed by El[facility] Conversion Manager Mental Health Cerner at 06/17/2022 7:43 PM CDT documented in this encounter Plan of Treatment Not on file documented as of this encounter Visit Diagnoses Not on filedocumented in this encounter
--- OUTSIDE RECORDS SUMMARY | 2024-10-04 10:01 | XMS_ITS | Encounter Summary ---
Author Organization [employer] ([place], [place], [place], [place]) Address [address] [place] [address] Care Team Providers Care Supervisor Contact Lens Name Role Phone Unavailable Primary Care Provider Unavailabl e Encounter Details Date Type Department Care Team (Late st Contact Info) Description 03/07/2018 Transcribed Document [facility] [place] [address] ProviderSarah [place] [address] Social History Tobacco Use Types Packs/Day Years Used Date Smoking Tobacco: Never Assessed Sex and Gender Information Value Date Recorded Sex Assigned at Not on file Legal Sex Male 1:22 PM CDT Gender Identity Not on file Sexual Orientation Not on file documented as of this encounter Miscellaneous Notes * Cerner Conversion Note - Sarah ProviderMD - 03/07/2018 11:22 AM ELEVATOR TENDER [address] , [place] [id number] Patient Copy Patient Information: Name: APOLONIA FERNANDEZ V Current Date: 03/07/2018 11:22:13 : 1950 Patient Address: [address] [place] [address] [facility] [address] Patient Attending Physician: PENNY LA MD-CAR Primary Care Provider: TENZIN RICARDO MD-[facility] Primary Care Provider Discharge Diagnosis: Weight on Admission: 261 lb, 0 oz Comment: Follow-up Instructions: With: Address: When: PENNY [place] [address] [place] [address], [address] [place] [address] Business (1) 10:15 AM Discharge Instructions: Diet [...] 09/03/2005 Document Revised: 07/23/2016 Document Reviewed: 07/19/2013 [employer] Interactive Patient Education ? 2017 [employer] Inc. Radial Site Care Introduction Refer to [...] you are awake and alert. ??? Take sica-woj-wdyecvx and prescription medicines only as told by [...] 12/06/2013 Document Revised: 07/20/2016 Document Reviewed: 06/06/2016 [employer] Interactive Patient Education ? 2017 [employer]. Medication Leaflets: ranolazine (ra CHARLENE nice) Ranexa [...] may report side effects to FDA at 6-539-WNF-1508. What other drugs will affect ranolazine? Many [...] interact with ranolazine. This includes prescription and hsib-set-mtxagiu medicines, vitamins, and herbal products. Give a [...] to ensure that the information provided by Patients Know Best. ('[employer]') is accurate, up-to-date, and complete, but no guarantee is made to that effect. Drug information contained herein may be time sensitive. [employer] information has been compiled for use by healthcare practitioners and consumers in the [place] and therefore [employer] does not warrant that uses outside of the [place] are appropriate, unless specifically indicated otherwise. [employer]'s drug information does not endorse drugs, diagnose patients or recommend therapy. Scrip-ts drug information is an informational resource designed [...] effective or appropriate for any given patient. [employer] does not assume any responsibility for any aspect of healthcare administered with the aid of information [employer] provides. The information contained herein is not intended to cover all possible uses, directions, precautions, warnings, drug interactions, allergic reactions, or adverse effects. If you have questions about the drugs you are taking, check with your doctor, nurse or pharmacist. Copyright [facility] [employer] [employer] Version: 12.30. Revision Date: 04/18/2015. CIGARETTE SMOKING: The facts are clear, cigarette smoking will shorten your life. Smoking can cause many illnesses along the way. As a healthcare provider, we recommend that you stop smoking. Assistance with quitting is available by contacting 3-817-NNRV-NOW. This is a free resource providing counseling, [...] Be sure to sign up for the [employer] patient portal, which gives you 21/09 access to your medical information ??? including these discharge instructions ??? using your computer, smartphone, or tablet. Just go to [employer] to get started. Questions? Call . [facility] would like to thank you for allowing us to assist you with your healthcare needs. CONSUELO Solano ROY V, (or senior human resources representative) have received the above patient education materials/instructions and have verbalized understanding: Patient Signature _ Date/Time Patient Agricultural Crop Farm Manager Signature (if needed) Date/Time Clinician/Hospital Agricultural Crop Farm Manager Signature (if needed) Date/Time documented in this encounter Plan of Treatment Not on file documented as of this encounter Visit Diagnoses Not on filedocumented in this encounter
--- OUTSIDE RECORDS SUMMARY | 2024-10-04 10:01 | XMS_ITS | Patient Health Record ---
Author Organization [facility] - [address] Address [address] [place] [address] Care Team Providers Care Pickling Grader Name Role Phone Chelsy Oliver MD Primary Care Provider Katjaarnold LOREE Cotton Unavailable [phone] Allergies No Known Allergies Reason For Referral No Information Medications Medication SIG (Take, Route, Frequency, Duration) Notes Start Date End Date Status Carvedilol 6.25 MG 1 tablet with food O rally Twice a day; Duration: 30 days 12/25/2022 Active Aspirin 81 MG 1 tablet Orally Once a day; Duration: 30 day(s) Active Donepezil HCl 5 MG TAKE 1 TABLET BY YULI EVERY DAY WITH FOOD Oral; Duration: 90 Active amLODIPine Besylate 5 MG 1 tablet Orally Once a day; Duration: 90 days 11/12/2022 Active Escitalopram Oxalate 10 MG 2 tablets Ora lly Once a day; Duration: 30 days Active Vitamin B12 TR 2000 MCG 1 tablet Orally Once a day; Duration: 30 day(s) Active Chlorthalidone 25 MG 1 tablet in the mor estephanie with food Orally Once a day; Duration: 90 days 11/18/2021 Active glipiZIDE ER 5 MG 1 tablet with food O rally Once a day; Duration: 30 day(s) Active Lisinopril 40 MG 1 tablet Orally Once a day; Duration: 30 day(s) Active Memantine HCl 10 MG 1 tablet Orally Twic e a day; Duration: 30 day(s) Active Atorvastatin Calcium 40 MG 1 tablet Oral ly Once a day; Duration: 30 days Active Social History Tobacco Use: Social History Observation Description Date Details (start date - stop date) Former Smoker NA - NA Tobacco Use/Smoking Question Answer Notes Are you a former smoker How long has it been since y ou last smoked? > 10 years Additional Findings: Tobacco User Modera te cigarette smoker (10-19 cigs/day) Problems Problem Type SNOMED Code ICD Code Onset Dates Problem Status W/U Status Risk Notes Problem Morbid obesity (disorder) (943899279) Morbid (severe) obesity due to excess calories (E66.01) Active confirmed Problem History of percutaneous transluminal coronary angioplasty (situation) (674367247) Coronary angioplasty status (Z98.61) Active confirmed Problem Type II diabetes mellitus without complication (261153661) Type 2 diabetes mellitus without complication, without long-term current use of insulin (E11.9) Active confirmed Problem Angina 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 (61019671952601177) Coronary artery disease involving [place] coronary artery of [place] heart with other form of angina pectoris (I25.118) Active confirmed Problem Hypercholesterolemia (77495934) Hypercholesterolemia (E78.00) Active confirmed Problem Primary hypertension (58120465) Primary hypertension (I10) Active confirmed Problem Body mass index 40+ - severely obese (finding) (732086933) Body mass index [BMI] 70 or greater, adult (Z68.45) Active confirmed Plan Of Treatment Pending Test Test Name Order Date Basic Metabolic Panel (8) 11/18/2021 Insurance Providers Payer Name Payer Address Payer Phone Subscriber Number Group Number Insured Name Patient Relationship to Insured Coverage Start Date Coverage End Date [place] [facility] [place] [address] [place] [address] [id number] Reji Fernandez Self - patient is the insured [facility] [address] [place] [address] [id number] Reji Fernandez Self - patient is the insured Medical (General) History Medical History History ICD Code DM2 HPLD HTN Chest Pain Osteoarthritis ED Surgical History Surgery Date(Month/Year) Gall Bladder BIlateral Knee Replacement Back Surgery x 2 Heart Stint
--- OUTSIDE RECORDS SUMMARY | 2024-10-04 10:01 | XMS_ITS | Encounter Summary ---
Author Organization [employer] ([place], [place], [place], [place]) Address [address] [place] [address] Care Team Providers Care Accounts Payable Specialist Name Role Phone Unavailable Primary Care Provider Unavailabl e Encounter Details Date Type Department Care Team (Late st Contact Info) Description 03/07/2018 Transcribed Document [facility] [place] Family Medicine [address] [place] [address] ProviderSarah MD [address] [place] [address] Social History Tobacco Use Types Packs/Day Years Used Date Smoking Tobacco: Never Assessed Sex and Gender Information Value Date Recorded Sex Assigned at Not on file Legal Sex Male 1:22 PM CDT Gender Identity Not on file Sexual Orientation Not on file documented as of this encounter Miscellaneous Notes * Cerner Conversion Note - Sarah Rizo MD - 03/07/2018 11:22 AM EXTRAS CASTING DIRECTOR Patient Education Materials Follows: Radial Site Care [...] you are awake and alert. ??? Take rkjv-iwx-vbbomoq and prescription medicines only as told by [...] 07/19/2013 Else[employer] Interactive Patient Education ? 2017 [employer]. documented in this encounter Plan of Treatment Not on file documented as of this encounter Visit Diagnoses Not on filedocumented in this encounter
--- OUTSIDE RECORDS SUMMARY | 2024-10-04 10:01 | XMS_ITS | Referral Summary ---
Author Organization [employer] ([place], [place], [place], [place]) Address [address] [place] [address] Care Team Providers Care Boulevard Glassware Replacer Name Role Phone Unavailable Primary Care Provider [...]
--- OUTSIDE RECORDS SUMMARY | 2024-10-04 10:01 | XMS_ITS | Encounter Summary ---
[facility] Address [address] [place] [address] Care Team Providers Care Conductor Sleeping Car Name Role Phone Macario Bell MD Primary Care Provider + Encounter Details Date Type Department Care Team (Late st Contact Info) Description 10/11/2017 External CPT II MANAGER BACKGROUND - [employer] Social History Tobacco Use [...] on filedocumented in this encounter Care Teams Conductor Sleeping Car Relationship Specialty Start Date End Date Macario Bell MD PCP - General Family Medicine 01/08/16 documented as of this encounter
--- OUTSIDE RECORDS SUMMARY | 2024-10-04 10:02 | XMS_ITS | Encounter Summary ---
Author Organization [facility] Address [address] [place] [address] Care Team Providers Care Outsole Molder Name Role Phone Adrian Gaming MD Primary Care Provider [phone] Encounter Details Date Type Department Care Team (Latest Contact Info) Description 10/03/2024 Travel Social History Tobacco Use Types Packs/Day Years Used Date Smoking Tobacco: Former Cigarettes 1989 Passive Smoke Exposure: Never Smokeless Tobacco: Former PHQ-2 Answer Date Recorded Patient Health Questionnaire-2 [...] on file documented as of this encounter Functional Status * AUDIT-C Score [...] Visit [facility] [address] [place] [address] Candelaria Ahn, [address] [place] [address] 10/02/2025 9:45 AM EDT Office Visit [facility] [address] [place] [address] Macario Gan MD [address] [place] [address] documented as of this encounter Visit Diagnoses Not on filedocumented in this encounter Additional Health Concerns Assessment Noted Time PHQ-9 Depression Total Score: 0 10/04/19 10:19 AM EDT A fall risk assessment has been complete d for the patient 10/03/2024 10:19 AM EDT documented as of this encounter Care Teams Outsole Molder Relationship Specialty Start Date End Date Adrian Gaming MD [address] [facility] [address] [place] [address] PCP - General 09/13/24 documented as of this encounter
--- OUTSIDE RECORDS SUMMARY | 2024-10-04 10:02 | XMS_ITS | Encounter Summary ---
Author Organization [facility] Address [address] [place] [address] Care Team Providers Care Bonding Machine Operator Name Role Phone Macario Bell MD Primary Care Provider Reason for Visit * Reason Onset Date Comments Rcvd Records 08/16/2024 Encounter Details Date Type Department Care Team (Late st Contact Info) Description 08/16/2024 Telephone [place] [facility] [address] [place] [address] [place] [address] [facility] Records Social History Tobacco Use Types [...] is on referral triage, sent fax to [facility], , for MRI of prostate report. iN Cabrera RN documented in this encounter Plan of Treatment Upcoming Encounters Date Type Department Care Team (Late st Contact Info) Description 10/05/2024 8:50 AM EDT Office Visit [facility] at [facility] [address] [place] [address] Candelaria Ahn, [address] [place] [address] 10/02/2025 9:45 AM EDT Office Visit [facility] [address] [place] [address] Macario Gan MD [address] [place] [address] documented as of this encounter Visit Diagnoses Not on filedocumented in this encounter Care Teams Bonding Machine Operator Relationship Specialty Start Date End Date Macario Bell MD [address] [place], [place] [id number] PCP - General 07/12/20 09/12/24 documented as of this encounter
--- OUTSIDE RECORDS SUMMARY | 2024-10-04 10:02 | XMS_ITS | Encounter Summary ---
Author Organization [facility] Address [address] [place] [address] Care Team Providers Care Tower Switch Operator Name Role Phone Macario Bell MD Primary Care Provider [phone] Encounter Details Date Type Department Care Team (Late st Contact Info) Description 08/16/2024 Telephone [place] [facility] [address] [place] [address] [place] [address] Social History Tobacco Use Types Packs/Day Years [...] records to be sent to our office. [phone].Ni Cabrera RN documented in this encounter Plan of Treatment Upcoming Encounters Date Type Department Care Team (Late st Contact Info) Description 10/05/2024 8:50 AM EDT Office Visit [facility] at [facility] [address] [place] [place] [address] Candelaria Ahn, DO [address] [place] [address] 10/02/2025 9:45 AM EDT Office Visit [facility] [address] [place] [address] Macario Gan MD [address] [facility] [address] [place] [address] documented as of this encounter Visit Diagnoses Not on filedocumented in this encounter Care Teams Tower Switch Operator Relationship Specialty Start Date End Date Macario Bell MD [address] [place] [address] PCP - General 07/12/20 09/12/24 documented as of this encounter
--- OUTSIDE RECORDS SUMMARY | 2024-10-04 10:02 | XMS_ITS | Encounter Summary ---
Author Organization Healthcare Address [address] [place] [address] Care Team Providers Care Dukey Rider Name Role Phone Macario Bell MD Primary Care Provider [phone] Adrian Gaming MD Primary Care Provider [phone] Reason for Referral * Consultation (Routine) - Authorized Specialty Diagnoses / Procedures Referred By Contact Referred To Contact Physical Medicine and Rehabilitation Diagnoses Blepharospasm Alla Falk MD [address] [place] [address] Phone: tel:[phone] fax:[phone] [facility] at [facility] [address] [facility] [place] [address] Phone: tel: fax: Referral ID Status Reason Start Date Expiration Date Visits Requested Visits Authorized [id number] Authorized Specialty Services Required 09/05/2024 03/07/2026 1 1 Encounter Details Date Type Department Care Team (Latest Contact Info) Description 09/05/2024 Community [facility] [address] [place] [address] Alla Falk MD [address] [place] [address] Blepharospasm (Primary Dx) Social History Tobacco Use Types [...] Visit [facility] at [facility] [address] [place] [address] Candelaria Ahn, [address] [place] [address] 10/02/2025 9:45 AM EDT Office Visit [place] [facility] [address] [place] [address] Mcaario Gan MD [address] [place] [address] Scheduled Referrals Name Type Priority Associated Diagnoses Order Schedule Ambulatory referral to Physical Medicine Rehab Outpatient Referral Routine Blepharospasm Expected: 09/05/2024 (Approximate), Expires: 03/08/2026 documented as of this encounter Visit Diagnoses Diagnosis Blepharospasm- Primary documented in this encounter Care Teams Dukey Rider Relationship Specialty Start Date End Date Macario Bell MD [address] [place] [address] PCP - General 07/12/20 09/12/24 Adrian Gaming MD [address] [facility] [address] [place] [address] PCP - General 09/13/24 documented as of this encounter
--- OUTSIDE RECORDS SUMMARY | 2024-10-04 10:02 | XMS_ITS | Encounter Summary ---
Author Organization [facility] Address [address] [place] [address] Care Team Providers Care Roll Mill Operator Name Role Phone Macario Bell MD Primary Care Provider [phone] Encounter Details Date Type Department Care Team (Late st Contact Info) Description 08/15/2024 Telephone [place] [facility] [address] [place] [address] [place] [address] Social History Tobacco Use Types Packs/Day Years [...] Visit [facility] at [facility] [address] [place] [address] Candelaria Ahn, DO [address] [facility] [address] [place] [address] 10/02/2025 9:45 AM EDT Office Visit [place] [facility] [address] [place] [address] Macario Gan MD [address] [facility] [address] [place] [address] documented as of this encounter Visit Diagnoses Not on filedocumented in this encounter Care Teams Roll Mill Operator Relationship Specialty Start Date End Date Macario Bell MD [address] [facility] [place] [address] PCP - General 07/12/20 09/12/24 documented as of this encounter
--- OUTSIDE RECORDS SUMMARY | 2024-10-04 10:02 | XMS_ITS | Clinical Summary ---
Author Organization Healthcare Address [address] [place] [address] Care Team Providers Care Clinical Radiologist Name Role Phone Adrian Gaming MD Primary Care Provider [phone] Allergies No known active allergies Medications amLODIPine (Norvasc) 10 MG tablet Take 1 tablet by mouth daily. 5 Active aspirin 81 MG EC tablet Take 1 tablet by mouth. Active atorvastatin (Lipitor) 40 MG tablet take 1 tablet by mouth once daily for cholesterol Active baclofen (Lioresal) 10 MG tablet every 12 hours. Acti ve clopidogrel (Plavix) 75 MG tablet Take 1 tablet by mouth daily. Active donepezil (Aricept) 10 MG tablet TAKE 1 TABLET BY MOUTH AT BEDTIME NIGHTLY Active glipiZIDE XL (Glucotrol XL) 2.5 MG 24 hr tablet 9 Active lisinopril 20 MG tablet 5 Active memantine (Namenda) 10 MG tablet every 12 hours. Acti ve nitroglycerin (Nitrostat) 0.4 MG SL tablet every 8 hours. Ac tive omeprazole (PriLOSEC) [address] capsule 9 Active QUEtiapine (SEROquel) 25 MG tablet TAKE 1 TABLET BY MOUTH EVERY DAY 1 HOUR BEFORE BEDTIME Active tamsulosin (Flomax) 0.4 MG 24 hr capsule Take 1 capsule by mouth daily. Active Encounters Date Type Department Care Team Description 10/03/2024 10:00 AM EDT Consult [facility] [address] [place] [address] Macario Gan MD Elevated PSA (Primary Dx) 10/03/2024 Travel 09/05/2024 Community [facility] [address] [place] [address] Alla Falk MD Blepharospasm (Primary Dx) 08/16/2024 Telephone [facility] [address] [place] [address] Ni Cabrera Rcvd Records 08/16/2024 Telephone [facility] [address] [place] [address] Ni Cabrera 08/15/2024 Telephone [facility] [address] [place] [address] Ni Cabrera from Last 3 [...] Mass Index 37.61 10/03/2024 10:21 AM EDT Plan of Treatment Upcoming Encounters Date Type Department Care Team (Late st Contact Info) Description 10/05/2024 8:50 AM EDT Office Visit [facility] [address] [place] [address] Candelaria Ahn DO [address] [place] [address] 10/02/2025 9:45 AM EDT Office Visit [facility] [address] [place] [address] Macario Gan MD [address] [place] [address] Health Maintenance Due Date Last Done Comments [facility]-Hepatitis C Screening 1950 [facility]-Medicare Annual Wellness (AWV) 1949 [facility]-/Child/Adol SDOH Screenings 1949 [facility]-Obesity Intervention 1955 [facility]- SDOH Screenings 1967 [facility]-Adult SDOH Screenings 1967 CT Colonography 1994 Colonoscopy 1994 FIT-DNA 1994 FIT 1994 FOBT 1994 Sigmoidoscopy 1994 [facility]-Colorectal Cancer Screening 1994 [facility]-Pneumococcal Vaccine: 50+ Years (1 of 1 - PCV) 1999 [facility]-Zoster Vaccines (1 of 2) 1999 [facility]-Abdominal Aortic Aneurysm (AAA) Screening 2014 [facility]-RSV Vaccine: 60+ Years or (1 - 1-dose 75+ series) 01/07/2024 [id number] Vaccine ( season) 2024 12/17/2023, 01/29/2021, 05/08/2020, Additional history exists [facility]-Influenza Vaccine (#1) 10/30/202412/16, 12/29/2018, 12/05/2015 [facility]-Depression Screening 10/03/2025 10/03/2024, 08/06/2024 [facility]-DTaP,Tdap,and Td Vaccines (2 - Td or [...] age to complete this topic [place] [address] [facility] Care Teams Clinical Radiologist Relationship Specialty Start Date End Date Adrian Gaming MD [address] [place] [address] PCP - General 09/13/24
[2024-10-04 11:06] VITALS: BP 122/58; PULSE 68; RESP 18; O2SAT 96; BMI 36.0
--- NOTE | 2024-10-04 11:25 | EXP.PAIN.SOA ---
[facility] Disclaimer: The information contained in this section may have been updated after the patient was seen, as this information can be updated by other users. Medical History Mass of left parotid gland Hypotension Blood pressure medications x4 were discontinued Fatigue BASIM (obstructive sleep apnea) Order sent to [facility] to set up AutoPap 8/12 cm, ramp 4 cm during 15 minutes. History of basal cell carcinoma Dyspnea Pulmonary embolism Dementia HLD (hyperlipidemia) HTN (hypertension) (~05/08/24) Diastolic dysfunction CAD (coronary artery disease) Surgical History History of foot surgery History of back surgery History of bunionectomy History of cholecystectomy History of bilateral knee replacement Family History Other Cancer Coronary artery disease Diabetes Heart attack Hyperlipidemia Hypertension Social History Smoking Status: Former smoker alcohol intake: current alcohol intake frequency: holidays/special occasions only substance use type: denies use current occupational status: retired Travel in the last 8 weeks?: None household members: spouse housing: house marital status: number of children: 3 caffeine: Yes Have you lived/traveled outside [place] in past 30 days?: No Contact w/someone who lives/traveled outside US past 30 days?: No Exposure to someone with infectious disease in past 14 days?: No Do you have a fever (greater than 100.4 F or 38 C)?: No Have you tested positive for COVID-19?: No Exposed to someone with COVID-19 in past 14 days?: No Do you have a sore throat?: No Do you have a cough?: No Do you have any weakness?: No Do you have any diarrhea?: No Are you experiencing any unusual bleeding?: No Do you have any muscle aches/pain?: No Do you have any abdominal pain?: No Are you experiencing loss of taste or smell?: No PM Subjective & Objective Subjective Subjective:: Patient is a 74-year-old male who presents today for 1 month follow-up. He does state he is still having no pain and rates that a 0 but does state he constantly has stiffness that interferes with his daily activities. Patient states that soon as he gets up and moves it is significant. Patient did have his first lumbar medial branch block in July that did provide 100% relief of the pain just not the stiffness. He is asking if there were anything additionally we can do for the stiffness. His Buck has been reviewed and is appropriate. Review of Systems: General: No recent weight changes, no fever, no sleep disturbances Respiratory: No cough, no shortness of air, no recurring pulmonary infections Cardiovascular/peripheral vascular: No chest pain, no palpitations, no edema, no shortness of breath Gastrointestinal: No new onset incontinence, normal bowel movements reported Genitourinary: No new onset incontinence Musculoskeletal: Low back stiffness Psychiatric: [Normal mood/affect] Neurological: [Denies weakness in extremities], [denies balance issues] Pain at rest (0-10 scale): 0 Objective Objective:: Physical Exam: General: Alert and oriented x3, no acute distress, pleasant and cooperative Lungs: Respirations even and unlabored, symmetrical chest expansion Eyes: PERRL Musculoskeletal: Flexion and extension of lumbar [spine] somewhat guarded secondary to pain, [antalgic gait noted] Neurological: Speech clear, no gross sensory deficit Has patient had previous pain injection?: No Conservative treatment options previously tried: Home exercise plan Length of treatment: Longer than 12 weeks Meds Home Medications and Allergies Home Medications ?Medication ?Instructions ?Recorded ?Confirmed ?Type aspirin 81 mg tablet,delayed 81 mg PO DAILY heart health 05/18/19 10/04/24 History release baclofen 10 mg tablet 10 mg PO TID PRN Pain, Mild 11/09/23 10/04/24 History nitroglycerin 0.4 mg sublingual 0.4 mg sublingual Q5M PRN chest 12/31/23 10/04/24 Rx tablet pain #30 tabs atorvastatin 40 mg tablet 40 mg PO DAILY Cholesterol #90 tabs 02/18/24 10/04/24 Rx clopidogrel 75 mg tablet (Plavix) 75 mg PO DAILY #30 tabs 02/18/24 10/04/24 Rx amlodipine 10 mg tablet 10 mg PO DAILY BLOOD PRESSURE 04/26/24 10/04/24 History glipizide 5 mg tablet, extended 5 mg PO DAILY Diabetes 04/26/24 10/04/24 History release 24 hr tamsulosin 0.4 mg capsule (Flomax) 0.4 mg PO DAILY 90 days #90 caps 08/07/24 10/04/24 Rx donepezil 10 mg tablet 10 mg PO HS #30 tabs 09/05/24 10/04/24 Rx memantine 10 mg tablet 10 mg PO BID 30 days #60 tabs 09/05/24 10/04/24 Rx quetiapine 25 mg tablet See Rx Instructions .Route 09/05/24 10/04/24 Rx .COMPLEX #30 tabs New Prescriptions to Start Prescriptions: Allergies Allergy/AdvReac Type Severity Reaction Status Date / Time No Known Allergies Allergy Verified 09/05/24 13:02 Assessment and Plan *Assessment and plan (1) Lumbar facet arthropathy: Status: Acute Category: Medical Code(s): M47.816 - Spondylosis without myelopathy or radiculopathy, lumbar region Plan Patients did state that he typically stays in bed 13 to 14 hours.We did discuss at length that I do believe the stiffness is related to the arthritis and we reviewed over regarding doing home exercise and stretching techniques however the patient and his both stated that he would not be interested in getting at home exercises. We did discuss the fact that he does have significant heart history and so he is not a candidate for anti-inflammatories on a regular basis. I did recommend him to try Tylenol arthritis and we did discuss muscle relaxers. Patient is currently managed with baclofen however he states he only uses this when he has hiccups. I did discuss that he could take this on a more regular basis and see if that does help with some of his aches and pains of the stiffness. We did also discuss that if it did not improve that he can call our office back and I will send in a 2-week dose of Skelaxin 800 mg 3 times daily as needed. Patient agrees with this plan of care. Patient has been instructed to contact the clinic with any concerns before the next appointment. Dr. Denton has reviewed this note and agrees with this plan of care. This note was dictated using voice recognition software and make contain errors or omissions. All injections are used with Lidocaine, Bupivacaine and dexamethasone. Occasionally urine drug screen is needed to verify patient's compliance with our office pain contract. This is ordered based off specific treatments related to chronic pain with the potential to abuse certain medications.
== END 2024-10-04 23:59 | disposition home or self-care (01) ==
LOC: SC.PAIN 09:59
PROVIDERS: PCP Family Medicine; Visit Provider Nurse Practitioner Family
DX: M47.816 Spondylosis without myelopathy or radiculopathy, lumbar region (principal); Z79.899 Other long term (current) drug therapy
CPT/HCPCS: 99212; G0463